=== PATIENT | female | born 1955 | race American Indian/Alaskan Native ===

== ENCOUNTER 2017-07-04 08:33 | Emergency (ER) | payer OTHER ==
[2017-07-04] MEDS ORDERED: Sodium Chloride 0.9% 1,000 ML IV STA (08:49)
--- NOTE | 2017-07-04 08:55 | ED PDOC ---
Syncope/Near Syncope/Dizziness Time Seen by Provider: 07/04/17 08:37 Chief Complaint (Nursing): Syncope Chief Complaint (Provider): Syncope History Per: EMS History/Exam Limitations: no limitations Onset/Duration Of Symptoms: Hrs (prior to arrival ) Current Symptoms Are (Timing): Still Present Additional History Per: Patient Additional Complaint(s): Seema Davis is a 61 year old female with a past medical history of diabetes brought to the ED by EMS after being witnessed having a syncopal episode with an unknown duration prior to arrival. The patient reports she had not been feeling well this morning and woke up complaining of dizziness. She denies headache, chest pain, palpitations, or seizure activity. PMD: TBD Past Medical History Reviewed: Historical Data, Nursing Documentation, Vital Signs - Medical History PMH: Diabetes, Fractures (fibula 3-4 yrs ago), HTN, Hypercholesterolemia, Sleep Apnea - Surgical History Surgical History: Hernia Repair - Family History Family History: States: Unknown Family Hx - Home Medications Home Medications: Ambulatory Orders Medication Instructions Recorded Azithromycin [Zithromax] 250 mg PO DAILY #6 tab 09/02/16 Ibuprofen [Motrin Tab] 600 mg PO Q6 PRN #15 tab 09/02/16 Oseltamivir [Tamiflu] 75 mg PO BID #10 cap 09/02/16 - Allergies Allergies/Adverse Reactions: Allergies Allergy/AdvReac Type Severity Reaction Status Date / Time No Known Allergies Allergy Verified 06/26/15 11:09 Review of Systems ROS Statement: Except As Marked, All Systems Reviewed And Found Negative Cardiovascular: Negative for: Chest Pain, Palpitations Neurological: Positive for: Dizziness, Other (syncope). Negative for: Headache Physical Exam - Reviewed Nursing Documentation Reviewed: Yes Vital Signs Reviewed: Yes - Physical Exam Appears: Positive for: Non-toxic, No Acute Distress Head Exam: Positive for: ATRAUMATIC, NORMOCEPHALIC Skin: Positive for: Normal Color, Warm, Dry Eye Exam: Positive for: Normal appearance, EOMI, PERRL ENT: Positive for: Pharynx Is (mucous membranes dry) Neck: Positive for: Normal, Painless ROM Cardiovascular/Chest: Positive for: Regular Rate, Rhythm, Chest Non Tender Respiratory: Positive for: Normal Breath Sounds. Negative for: Respiratory Distress Gastrointestinal/Abdominal: Positive for: Normal Exam, Soft. Negative for: Tenderness Extremity: Positive for: Normal ROM. Negative for: Deformity Neurologic/Psych: Positive for: Alert, Oriented (x3). Negative for: Motor/ Sensory Deficits - Laboratory Results Result Diagrams: 07/04/17 08:52 07/04/17 08:52 - ECG O2 Sat by Pulse Oximetry: 99 (RA) Pulse Ox Interpretation: Normal Medical Decision Making Medical Decision Making: Time: 08:37 Impression: s/p syncopal episode Plan: * ED EKG * CMP * CBC (with differential) * NS 1,000 ml IV 200 mls/hr * CT Head w/o Contrast * Reevaluation Scribe Attestation: Documented by Naty Kwok, acting as a scribe for Will Downey MD. Advised 24 hr obs for syncope. Pt wishes to go home aware of risks including recurrent syncope, arrhythmia and . Provider Scribe Attestation: All medical record entries made by the Scribe were at my direction and personally dictated by me. I have reviewed the chart and agree that the record accurately reflects my personal performance of the history, physical exam, medical decision making, and the department course for this patient. I have also personally directed, reviewed, and agree with the discharge instructions and disposition. Disposition - Clinical Impression Clinical Impression: Syncope, Dehydration - Patient ED Disposition Is Patient to be Admitted: No Counseled Patient/Family Regarding: Studies Performed, Diagnosis, Need For Followup - Disposition Referrals: [facility] [Outside] Disposition: Routine/Home Disposition Time: 10:40 Condition: FAIR Instructions: Syncope (ED), Dehydration (ED) Forms: [employer] (Thai)
[2017-07-04 08:56] VITALS: BP 112/66; PULSE 81; RESP 16; O2SAT 99
[2017-07-04 09:14] LABS: BASO % 0.3 % (0.0-2.0); EOS # 0.1 K/uL (0.0-0.7); EOS % 0.5 % (0.0-4.0); HEMATOCRIT 27.4 % (34.0-47.0); LYMPH # 1.9 K/uL (1.0-4.3); MEAN CELL VOLUME 82.2 fl (81.0-99.0); MEAN CORPUSCULAR HEMOGLOBIN 26.7 pg (27.0-31.0); MEAN CORPUSCULAR HGB CONC 32.5 g/dL (33.0-37.0); MEAN PLATELET VOLUME 7.4 fl (7.2-11.7); MONO # 0.9 K/uL (0.0-0.8); MONO % 8.5 % (0.0-10.0); NEUT # 8.1 K/uL (1.8-7.0); NEUT % 73.7 % (50.0-75.0); RED CELL DISTRIBUTION WIDTH 15.3 % (11.5-14.5)
[2017-07-04 09:30] LABS: BILIRUBIN,TOTAL 0.9 mg/dl (0.2-1.3); CALCIUM 9.1 mg/dL (8.4-10.2); TOTAL PROTEIN 8.5 G/DL (6.3-8.2)
[2017-07-04 09:35] LABS: ALB/GLOB RATIO 0.9 (1.0-2.1)
--- NOTE | 2017-07-04 10:18 | CT ---
PROCEDURE: CT HEAD WITHOUT CONTRAST. HISTORY: r/o bleed COMPARISON: Comparison made with prior CT scan brain 06/18/2016. TECHNIQUE: Axial computed tomography images were obtained through the head/brain without intravenous contrast. Radiation dose: Total exam DLP = 767.83 mGy-cm. This CT exam was performed using one or more of the following dose reduction techniques: Automated exposure control, adjustment of the mA and/or kV according to patient size, and/or use of iterative reconstruction technique. FINDINGS: HEMORRHAGE: No acute parenchymal, subarachnoid or extra-axial hemorrhage. BRAIN: There appears chronic periventricular to be some very minor white ischemic changes. No obvious parenchymal nor extra-axial mass or collection identified on this noncontrast study. Mild generalized volume loss. . Mild vascular calcifications are present. VENTRICLES: Unremarkable. No hydrocephalus. CALVARIUM: Unremarkable. PARANASAL SINUSES: Minimal mucosal thickening seen within the ethmoid air complex. Swan MASTOID AIR CELLS: Unremarkable as visualized. No inflammatory changes. OTHER FINDINGS: None. IMPRESSION: No acute intracranial hemorrhage. Minor chronic periventricular white matter ischemic changes. Mild generalized volume loss.
--- NOTE | 2017-07-05 09:15 | CARD ---
APPROVED REPORT EKG Measurement Heart [id number] <Conclusion> Normal sinus rhythm Normal ECG
== END 2017-07-04 11:07 | disposition home or self-care (01) ==
LOC: H.ER 08:33
DX: R55 Syncope and collapse (principal); E86.0 Dehydration; E11.9 Type 2 diabetes mellitus without complications; E78.00 Pure hypercholesterolemia, unspecified; I10 Essential (primary) hypertension
CPT/HCPCS: 70450; 80053; 82948; 85025; 93005; 99284; J7040

== ENCOUNTER 2017-08-18 07:52 | Inpatient (IN) | payer OTHER ==
--- NOTE | 2017-08-18 09:11 | ED PDOC ---
Syncope/Near Syncope/Dizziness Time Seen by Provider: 08/18/17 08:33 Chief Complaint (Nursing): Weakness/Neurological Deficit Chief Complaint (Provider): Dizziness History Per: Patient History/Exam Limitations: no limitations Onset/Duration Of Symptoms: Sudden Onset (at 7AM) Current Symptoms Are (Timing): Better Additional Complaint(s): Seema Davis is a 61-year-old female with a past medical history of diabetes , brought to the Emergency Department by ambulance for evaluation of episode of dizziness this morning. Patient reports she took her usual insulin dose this morning and was taking a bite of a sandwich when she began to feel dizzy and sweaty around 7AM. EMS gave patient glucose, and she now reports feeling normal. Denies any headache, syncope, paresthesias, weakness, chest pain, or shortness of breath. Family member reports patient is not compliant with regular blood sugar checks. PMD: Provider TBD Past Medical History Reviewed: Historical Data, Nursing Documentation, Vital Signs Vital Signs: Last Vital Signs Temp 99 F 08/18/17 07:59 Pulse 83 08/18/17 07:59 Resp 18 08/18/17 07:59 BP 117/67 08/18/17 07:59 Pulse Ox 98 08/18/17 07:59 - Medical History PMH: Diabetes, Fractures (fibula 3-4 yrs ago), HTN, Hypercholesterolemia, Sleep Apnea - Surgical History Surgical History: Hernia Repair - Family History Family History: States: Unknown Family Hx - Social History Current smoker - smoking cessation education provided: No Alcohol: None Drugs: Denies - Immunization History Hx Tetanus Toxoid Vaccination: No Hx Influenza Vaccination: No Hx Pneumococcal Vaccination: No - Home Medications Home Medications: Ambulatory Orders Medication Instructions Recorded Aspirin [Ecotrin] 81 mg PO QPM 08/18/17 Atorvastatin [Lipitor] 20 mg PO QPM 08/18/17 Ferrous Sulfate [Ferosul] 325 mg PO QPM 08/18/17 Insulin Glargine, Recombina 45 unit SC HS 08/18/17 [Lantus] Insulin Lispro [humALOG] 12 unit SC ACTID 08/18/17 Lisinopril/Hydrochlorothiazide 1 tab PO QPM 08/18/17 [Lisinopril-Hctz 20-25 mg Tab] Montelukast [Singulair] 10 mg PO QPM 08/18/17 Oxybutynin [Ditropan Tab] 5 mg PO QPM 08/18/17 amLODIPine [Norvasc] 5 mg PO QPM 08/18/17 - Allergies Allergies/Adverse Reactions: Allergies Allergy/AdvReac Type Severity Reaction Status Date / Time No Known Allergies Allergy Verified 06/26/15 11:09 Review of Systems ROS Statement: Except As Marked, All Systems Reviewed And Found Negative Constitutional: Positive for: Sweats Cardiovascular: Negative for: Chest Pain Respiratory: Negative for: Shortness of Breath Neurological: Positive for: Dizziness. Negative for: Weakness, Numbness (or paresthesias), Headache, Other (Syncope) Physical Exam - Reviewed Nursing Documentation Reviewed: Yes Vital Signs Reviewed: Yes - Physical Exam Appears: Positive for: Non-toxic, No Acute Distress Head Exam: Positive for: ATRAUMATIC, NORMAL INSPECTION, NORMOCEPHALIC Skin: Positive for: Normal Color (with superficial ulcerations noted under left breast (pt states cannot keep area dry). No vesicles, discharge, or induration noted) Eye Exam: Positive for: EOMI, Normal appearance, PERRL Neck: Positive for: Normal, Painless ROM, Supple Cardiovascular/Chest: Positive for: Regular Rate, Rhythm. Negative for: Murmur Respiratory: Positive for: Normal Breath Sounds. Negative for: Accessory Muscle Use, Respiratory Distress Gastrointestinal/Abdominal: Positive for: Normal Exam, Soft. Negative for: Tenderness Back: Positive for: Normal Inspection. Negative for: Vertebral Tenderness Rectal: Positive for: Normal Exam, Other (No gross blood) Extremity: Positive for: Normal ROM, Capillary Refill (< 2 sec). Negative for: Deformity Neurologic/Psych: Positive for: Alert, Oriented (x 3). Negative for: Motor/ Sensory Deficits - Laboratory Results Result Diagrams: 08/21/17 04:55 08/21/17 04:55 - ECG Interpretation Of ECG: NSR @ 83, no ST-T changes. O2 Sat by Pulse Oximetry: 98 (RA) Pulse Ox Interpretation: Normal Medical Decision Making Medical Decision Making: Initial Impression: Hypoglycemia Time: 9:03 Initial Plan: --EKG --CMP --CBC w/ differential --Urine dip --Urinalysis --Accucheck --Chest x-ray --CT Head w/o contrast --Reevaluation Finger stick: 65 Time: 10:[address] Cunningham, who recommends transfusion. Patient will be hospitalized for observation due to hypoglycemic and symptomatic anemia. Added on blood type/screen, crossmatch, and occult blood stool. Time: 11:05 CHEST X-RAY: FINDINGS: LUNGS: No acute infiltrate identified bilaterally. Linear atelectasis or fibrosis in the inferior left lung zone. PLEURA: No significant pleural effusion identified, no pneumothorax apparent. CARDIOVASCULAR: Normal. OSSEOUS STRUCTURES: No significant abnormalities. VISUALIZED UPPER ABDOMEN: Normal. OTHER FINDINGS: None. IMPRESSION: No acute infiltrate or pleural effusion bilaterally. Linear atelectasis or fibrosis is seen at the left base laterally. Time: 11:20 CT HEAD WITHOUT CONTRAST: FINDINGS: HEMORRHAGE: No intracranial hemorrhage. BRAIN: Good corticomedullary differentiation is seen. Once again, diffuse expansion of the ventriculosulcal and cisternal spaces is appreciated with white matter lucency compatible with diffuse cerebral atrophy and chronic microangiopathy. No suspicious extra-axial fluid collection is identified and the midline brain anatomy appears grossly nonfocal as imaged. There is no mass effect throughout. VENTRICLES: Unremarkable. No hydrocephalus. CALVARIUM: Unremarkable. PARANASAL SINUSES: Unremarkable as visualized. No significant inflammatory changes. MASTOID AIR CELLS: Unremarkable as visualized. No inflammatory changes. OTHER FINDINGS: None. IMPRESSION: No definite acute, interval findings by standard CT criteria. Reiterated age related neuro degenerative changes are appreciated as discussed above compared to head CT 07/04/2017. Follow-up CT or MRI are available if indicated. Scribe Attestation: Documented by Yuliya Rowland, acting as a scribe for Kamini Cabrera MD Provider Scribe Attestation: All medical record entries made by the Scribe were at my direction and personally dictated by me. I have reviewed the chart and agree that the record accurately reflects my personal performance of the history, physical exam, medical decision making, and the department course for this patient. I have also personally directed, reviewed, and agree with the discharge instructions and disposition. Disposition - Clinical Impression Clinical Impression: Symptomatic anemia, Hypoglycemia - Patient ED Disposition Is Patient to be Admitted: Yes Counseled Patient/Family Regarding: Studies Performed - Disposition Disposition Time: 10:47 Condition: STABLE - Pt Status Changed To: Hospital Disposition Of: Observation - POA Present On Arrival: Poor Glycemic Control
[2017-08-18 09:41] LABS: BASO # 0.1 K/uL (0.0-0.2); BASO % 0.4 % (0.0-2.0); EOS # 0.2 K/uL (0.0-0.7); HEMOGLOBIN 7.5 g/dL (12.0-16.0); LYMPH # 1.7 K/uL (1.0-4.3); LYMPH % 11.1 % (20.0-40.0); MEAN CELL VOLUME 79.6 fl (81.0-99.0); MEAN CORPUSCULAR HEMOGLOBIN 25.4 pg (27.0-31.0); MEAN PLATELET VOLUME 6.7 fl (7.2-11.7); MONO % 6.3 % (0.0-10.0); NEUT # 12.8 K/uL (1.8-7.0); NEUT % 81.2 % (50.0-75.0); RBC 2.96 Mil/uL (3.80-5.20); RED CELL DISTRIBUTION WIDTH 15.3 % (11.5-14.5); WHITE BLOOD COUNT 15.7 K/uL (4.8-10.8)
[2017-08-18 10:03] LABS: ALB/GLOB RATIO 0.8 (1.0-2.1); ALBUMIN 3.5 g/dL (3.5-5.0); CALCIUM 9.3 mg/dL (8.4-10.2)
--- NOTE | 2017-08-18 11:07 | RAD ---
HISTORY: Dizziness COMPARISON: Portable chest 09/02/2016. FINDINGS: LUNGS: No acute infiltrate identified bilaterally. Linear atelectasis or fibrosis in the inferior left lung zone. PLEURA: No significant pleural effusion identified, no pneumothorax apparent. CARDIOVASCULAR: Normal. OSSEOUS STRUCTURES: No significant abnormalities. VISUALIZED UPPER ABDOMEN: Normal. OTHER FINDINGS: None. IMPRESSION: No acute infiltrate or pleural effusion bilaterally. Linear atelectasis or fibrosis is seen at the left base laterally.
--- NOTE | 2017-08-18 11:21 | CT ---
PROCEDURE: CT HEAD WITHOUT CONTRAST. HISTORY: Lightheadedness COMPARISON: Unenhanced head CT 07/04/2017 TECHNIQUE: Axial computed tomography images were obtained through the head/brain without intravenous contrast. Radiation dose: Total exam DLP = 846.51 mGy-cm. This CT exam was performed using one or more of the following dose reduction techniques: Automated exposure control, adjustment of the mA and/or kV according to patient size, and/or use of iterative reconstruction technique. FINDINGS: HEMORRHAGE: No intracranial hemorrhage. BRAIN: Good corticomedullary differentiation is seen. Once again, diffuse expansion of the ventriculosulcal and cisternal spaces is appreciated with white matter lucency compatible with diffuse cerebral atrophy and chronic microangiopathy. No suspicious extra-axial fluid collection is identified and the midline brain anatomy appears grossly nonfocal as imaged. There is no mass effect throughout. VENTRICLES: Unremarkable. No hydrocephalus. CALVARIUM: Unremarkable. PARANASAL SINUSES: Unremarkable as visualized. No significant inflammatory changes. MASTOID AIR CELLS: Unremarkable as visualized. No inflammatory changes. OTHER FINDINGS: None. IMPRESSION: No definite acute, interval findings by standard CT criteria. Reiterated age related neuro degenerative changes are appreciated as discussed above compared to head CT 07/04/2017. Follow-up CT or MRI are available if indicated.
[2017-08-18] MEDS ORDERED: Pneumococcal 23-Valent Vaccine IM ONE (14:11)
[2017-08-18] MEDS ORDERED: Influenza Vaccine 18yr & older 0.5 ML/45 MCG SYR IM ONE (14:29)
[2017-08-18 15:22] LABS: IRON 19 ug/dL (37-170)
[2017-08-18 15:31] LABS: TOTAL IRON BINDING CAPACITY 224 ug/dL (250-450)
[2017-08-18 15:32] LABS: % IRON SATURATION 9 % (20-55)
[2017-08-18] MEDS: ceFAZolin 1 GM in Sodium Chloride 0.9% 100 ML IVPB SCH (17:08)
[2017-08-18] MEDS: Insulin Regular 100 units/ml SC SCH ×2 (17:08→22:04)
[2017-08-18] MEDS ORDERED: Patient's Own Med (Lisinopril/Hydrochlorothiazide [Lisinopril-Hctz 20-25 Mg Tab] 1 TAB) PO SCH (18:00)
--- NOTE | 2017-08-18 18:23 | CARD ---
APPROVED REPORT EKG Measurement Heart [id number] <Conclusion> Normal sinus rhythm Normal ECG
[2017-08-18 23:28] LABS: SQUAMOUS EPITHIAL 1 /hpf (0-5); URINE BACTERIA OCC (<OCC); URINE BILIRUBIN NEGATIVE (NEGATIVE); URINE BLOOD SMALL (NEGATIVE); URINE CLARITY CLEAR (Clear); URINE COLOR YELLOW (YELLOW); URINE GLUCOSE (UA) NEG (Normal); URINE LEUKOCYTE ESTERASE SMALL Leu/uL (Negative); URINE NITRATE POSITIVE (NEGATIVE); URINE PROTEIN NEGATIVE (NEGATIVE); URINE UROBILINOGEN 0.2-1.0 mg/dL (0.2-1.0)
[2017-08-19] MEDS: ceFAZolin 1 GM in Sodium Chloride 0.9% 100 ML IVPB SCH ×3 (01:40→16:07)
[2017-08-19 05:54] LABS: HEMOGLOBIN 9.1 g/dL (12.0-16.0); MEAN CELL VOLUME 82.7 fl (81.0-99.0); MEAN CORPUSCULAR HEMOGLOBIN 26.5 pg (27.0-31.0); RBC 3.45 Mil/uL (3.80-5.20); RED CELL DISTRIBUTION WIDTH 15.7 % (11.5-14.5); WHITE BLOOD COUNT 16.8 K/uL (4.8-10.8)
[2017-08-19 06:04] LABS: HDL CHOLESTEROL 36 MG/DL (30-70)
[2017-08-19 06:15] LABS: LDL CHOLESTEROL 53 mg/dL (0-129)
[2017-08-19] MEDS: Insulin Regular 100 units/ml SC SCH ×4 (06:50→21:55)
--- NOTE | 2017-08-19 08:03 | CP.PCM.HP ---
History of Present Illness - History of Present Illness History of Present Illness: 61 yr old F brought in to ED by ambulance for acute severe dizziness. PMHx includes IDDM type 2, HTN, hyperchlesterolemia, morbidly obese, sleep apnea, abd hernia repair with mesh with postop mesh infection and removal, chronic recurrent cellulitis of bilateral breast. Patient reports she became dizzy after administering her insulin, she had just taken a bite out of a sandwhich. Denies chest pain, SOB, weakness, headache, dizziness, syncope, nausea or vomiting. Dizziness resolved upon arrival to ED and treatment with glucose administered by EMS. Patient reports she was dx with diabetes 5 yrs ago and does not check her blood sugar regularly before taking insulin. PMD: Dr. Najera, [facility] Specialists: none PMHx: IDDM type 2, HTN, hyperchlesterolemia, morbidly obese, sleep apnea, abd hernia repair with mesh with postop mesh infection and removal, chronic recurrent cellulitis of bilateral breast SurgHx: multiple abdominal surgeries: abd hernia repair with mesh with postop mesh infection and removal FMHx: mother at 69-seizure disorder, father at 70-stroke /seizure SocHx: denies tobacco/Etoh or drugs Medications: see medication reconciliation Allergies: NKDA Present on Admission - Present on Admission Any Indicators Present on Admission: Yes History of DVT/PE: No History of Uncontrolled Diabetes: Yes Urinary Catheter: No Decubitus Ulcer Present: No History Surgical Site Infection Following: None (Yes-patient has history of surgical site and mesh infection following abd hernia repair) Review of Systems - Review of Systems All systems: reviewed and no additional remarkable complaints except (for what is mentioned in the HPI) - Constitutional Constitutional: absent: Chills, Fever - EENT Eyes: absent: Blurred Vision, Change in Vision Ears: absent: Ear Discharge Nose/Mouth/Throat: absent: Nasal Congestion, Nasal Discharge - Breasts Breasts: Skin Changes (multiple chronic recurrent lesions with malodor and discharge) - Cardiovascular Cardiovascular: absent: Chest Pain, Dyspnea - Respiratory Respiratory: absent: Hemoptysis - Gastrointestinal Gastrointestinal: absent: Abdominal Pain, Nausea, Vomiting - Genitourinary Genitourinary: absent: Difficulty Urinating, Dysuria - Musculoskeletal Musculoskeletal: absent: Arthralgias - Integumentary Integumentary: absent: Bleeding Lesions - Neurological Neurological: absent: Loss of Vision, Syncope - Psychiatric Psychiatric: absent: Anxiety, Depression - Endocrine Endocrine: absent: Polydipsia, Polyuria - Hematologic/Lymphatic Hematologic: absent: Easy Bleeding, Easy Bruising Past Patient History - Infectious Disease Hx of Infectious Diseases: None - Past Medical History & Family History Past Medical History?: Yes - Past Social History Smoking Status: Never Smoked - CARDIAC Hx Cardiac Disorders: Yes Hx Hypercholesterolemia: Yes Hx Hypertension: Yes - PULMONARY Hx Respiratory Disorders: Yes Hx Sleep Apnea: Yes (uses CPAP at night) - NEUROLOGICAL Hx Neurological Disorder: No - HEENT Hx HEENT Problems: No - RENAL Hx Chronic Kidney Disease: No - ENDOCRINE/METABOLIC Hx Endocrine Disorders: Yes Hx Diabetes Mellitus Type 2: Yes - HEMATOLOGICAL/ONCOLOGICAL Hx Blood Disorders: Yes Hx Blood Transfusions: No - INTEGUMENTARY Hx Dermatological Problems: Yes Hx Cellulitis: Yes Other/Comment: Under breasts rash/drainage - MUSCULOSKELETAL/RHEUMATOLOGICAL Hx Musculoskeletal Disorders: Yes Hx Falls: No Hx Fractures: Yes (fibula 3-4 yrs ago) - GASTROINTESTINAL Hx Gastrointestinal Disorders: Yes Other/Comment: abdominal surgery - GENITOURINARY/GYNECOLOGICAL Hx Genitourinary Disorders: No - PSYCHIATRIC Hx Psychophysiologic Disorder: No Hx Substance Use: No - SURGICAL HISTORY Hx Surgeries: Yes Hx Hysterectomy: Yes - ANESTHESIA Hx Anesthesia: Yes Hx Anesthesia Reactions: No Hx Malignant Hyperthermia: No Meds Allergies/Adverse Reactions: Allergies Allergy/AdvReac Type Severity Reaction Status Date / Time No Known Allergies Allergy Verified 06/26/15 11:09 Physical Exam - Constitutional Appears: Other (morbidly obese) - Head Exam Head Exam: ATRAUMATIC, NORMOCEPHALIC - Eye Exam Eye Exam: EOMI, PERRL - ENT Exam ENT Exam: Mucous Membranes Moist - Neck Exam Neck exam: Positive for: Full Rom. Negative for: Lymphadenopathy - Respiratory Exam Respiratory Exam: Clear to Auscultation Bilateral, NORMAL BREATHING PATTERN - Cardiovascular Exam Cardiovascular Exam: REGULAR RHYTHM, +S1, +S2 - GI/Abdominal Exam GI & Abdominal Exam: Normal Bowel Sounds, Soft (obese). absent: Tenderness Additional comments: multiple 1x1 cm stage 1 ulcers with clear malodorous discharge and surrounding erythema under lower abdominal skin fold - Extremities Exam Extremities exam: Positive for: full ROM. Negative for: calf tenderness, pedal edema - Neurological Exam Neurological exam: Alert, CN II-XII Intact, Oriented x3 - Psychiatric Exam Psychiatric exam: Normal Affect, Normal Mood - Skin Skin Exam: Warm Additional comments: under bilateral breast: multiple 1x1 cm stage 1 ulcers with surrounding erythema , clear discharge and malodor Results - Vital Signs Recent Vital Signs: Last Vital Signs Temp 98.5 F 08/19/17 07:50 Pulse 78 08/19/17 07:50 Resp 16 08/19/17 07:50 BP 93/60 L 08/19/17 07:50 Pulse Ox 96 08/19/17 07:50 - Labs Result Diagrams: 08/19/17 05:15 08/18/17 09:38 Labs: Laboratory Results - last 24 hr 08/18/17 08/18/17 08/18/17 09:38 09:38 11:27 WBC 15.7 H RBC 2.96 L Hgb 7.5 L Hct 23.6 L MCV 79.6 L D MCH 25.4 L MCHC 32.0 L RDW 15.3 H Plt Count 392 MPV 6.7 L Neut % (Auto) 81.2 H Lymph % (Auto) 11.1 L Payne % (Auto) 6.3 Eos % (Auto) 1.0 Baso % (Auto) 0.4 Neut # 12.8 H Lymph # 1.7 Payne # 1.0 H Eos # 0.2 Baso # 0.1 Retic Count Sodium 140 Potassium 4.0 Chloride 102 Carbon Dioxide 25 Anion Gap 17 BUN 14 Creatinine 1.2 Est GFR ( Amer) 55 Est GFR (Non-Af Amer) 46 POC Glucose (mg/dL) Random Glucose 119 H Calcium 9.3 Iron TIBC % Saturation Ferritin Total Bilirubin 0.5 AST 31 ALT 18 Alkaline Phosphatase 102 Total Protein 8.1 Albumin 3.5 Globulin 4.6 H Albumin/Globulin Ratio 0.8 L Triglycerides Cholesterol LDL Cholesterol Direct HDL Cholesterol Vitamin B12 Urine Color Urine Clarity Urine pH Ur Specific Sc[place]mon Urine Protein Urine Glucose (UA) Urine Ketones Urine Blood Urine Nitrate Urine Bilirubin Urine Urobilinogen Ur Leukocyte Esterase Urine RBC (Auto) Urine Microscopic WBC Ur Squamous Epith Cells Urine Bacteria Stool Occult Blood Blood Type O POSITIVE Blood Type Confirm Antibody Screen Negative Crossmatch See Detail BBK History Checked No verified bt 08/18/17 08/18/17 08/18/17 12:12 12:43 15:07 WBC RBC Hgb Hct MCV MCH MCHC RDW Plt Count MPV Neut % (Auto) Lymph % (Auto) Payne % (Auto) Eos % (Auto) Baso % (Auto) Neut # Lymph # Payne # Eos # Baso # Retic Count Sodium Potassium Chloride Carbon Dioxide Anion Gap BUN Creatinine Est GFR ( Amer) Est GFR (Non-Af Amer) POC Glucose (mg/dL) 91 Random Glucose Calcium Iron 19 L TIBC 224 L % Saturation 9 L Ferritin Total Bilirubin AST ALT Alkaline Phosphatase Total Protein Albumin Globulin Albumin/Globulin Ratio Triglycerides Cholesterol LDL Cholesterol Direct HDL Cholesterol Vitamin B12 Urine Color Urine Clarity Urine pH Ur Specific [place] Urine Protein Urine Glucose (UA) Urine Ketones Urine Blood Urine Nitrate Urine Bilirubin Urine Urobilinogen Ur Leukocyte Esterase Urine RBC (Auto) Urine Microscopic WBC Ur Squamous Epith Cells Urine Bacteria Stool Occult Blood Negative Blood Type Blood Type Confirm Antibody Screen Crossmatch BBK History Checked 08/18/17 08/18/17 08/18/17 15:07 15:07 16:36 WBC RBC Hgb Hct MCV MCH MCHC RDW Plt Count MPV Neut % (Auto) Lymph % (Auto) Payne % (Auto) Eos % (Auto) Baso % (Auto) Neut # Lymph # Payne # Eos # Baso # Retic Count 2.1 H Sodium Potassium Chloride Carbon Dioxide Anion Gap BUN Creatinine Est GFR ( Amer) Est GFR (Non-Af Amer) POC Glucose (mg/dL) 105 Random Glucose Calcium Iron TIBC % Saturation Ferritin 363.0 H Total Bilirubin AST ALT Alkaline Phosphatase Total Protein Albumin Globulin Albumin/Globulin Ratio Triglycerides Cholesterol LDL Cholesterol Direct HDL Cholesterol Vitamin B12 379 Urine Color Urine Clarity Urine pH Ur Specific [place] Urine Protein Urine Glucose (UA) Urine Ketones Urine Blood Urine Nitrate Urine Bilirubin Urine Urobilinogen Ur Leukocyte Esterase Urine RBC (Auto) Urine Microscopic WBC Ur Squamous Epith Cells Urine Bacteria Stool Occult Blood Blood Type Blood Type Confirm Antibody Screen Crossmatch BBK History Checked 08/18/17 08/18/17 08/18/17 21:21 21:27 23:19 WBC RBC Hgb Hct MCV MCH MCHC RDW Plt Count MPV Neut % (Auto) Lymph % (Auto) Payne % (Auto) Eos % (Auto) Baso % (Auto) Neut # Lymph # Payne # Eos # Baso # Retic Count Sodium Potassium Chloride Carbon Dioxide Anion Gap BUN Creatinine Est GFR ( Amer) Est GFR (Non-Af Amer) POC Glucose (mg/dL) 121 H Random Glucose Calcium Iron TIBC % Saturation Ferritin Total Bilirubin AST ALT Alkaline Phosphatase Total Protein Albumin Globulin Albumin/Globulin Ratio Triglycerides Cholesterol LDL Cholesterol Direct HDL Cholesterol Vitamin B12 Urine Color Yellow Urine Clarity Clear Urine pH 6.0 Ur Specific [place] 1.006 Urine Protein Negative Urine Glucose (UA) Neg Urine Ketones Negative Urine Blood Small Urine Nitrate Positive H Urine Bilirubin Negative Urine Urobilinogen 0.2-1.0 Ur Leukocyte Esterase Small Urine RBC (Auto) < 1 Urine Microscopic WBC 7 H Ur Squamous Epith Cells 1 Urine Bacteria Occ H Stool Occult Blood Blood Type Blood Type Confirm O POSITIVE Antibody Screen Crossmatch BBK History Checked 08/19/17 08/19/17 08/19/17 05:15 05:15 05:52 WBC 16.8 H RBC 3.45 L Hgb 9.1 L Hct 28.6 L MCV 82.7 D MCH 26.5 L MCHC 32.0 L RDW 15.7 H Plt Count 366 MPV Neut % (Auto) Lymph % (Auto) Payne % (Auto) Eos % (Auto) Baso % (Auto) Neut # Lymph # Payne # Eos # Baso # Retic Count Sodium Potassium Chloride Carbon Dioxide Anion Gap BUN Creatinine Est GFR ( Amer) Est GFR (Non-Af Amer) POC Glucose (mg/dL) 110 Random Glucose Calcium Iron TIBC % Saturation Ferritin Total Bilirubin AST ALT Alkaline Phosphatase Total Protein Albumin Globulin Albumin/Globulin Ratio Triglycerides 63 Cholesterol 121 LDL Cholesterol Direct 53 HDL Cholesterol 36 Vitamin B12 Urine Color Urine Clarity Urine pH Ur Specific [place] Urine Protein Urine Glucose (UA) Urine Ketones Urine Blood Urine Nitrate Urine Bilirubin Urine Urobilinogen Ur Leukocyte Esterase Urine RBC (Auto) Urine Microscopic WBC Ur Squamous Epith Cells Urine Bacteria Stool Occult Blood Blood Type Blood Type Confirm Antibody Screen Crossmatch BBK History Checked Assessment & Plan - Assessment and Plan (Free Text) Assessment: 61 yr old F admitted for hypoglycemia and symptomatic anemia. -admit to tele -f/u next day CBC, patient is s/p transfusion of 2 units pRBC's -ID on consult: will follow recommendations -f/u FOBT, wound cultures -moderate carbohydrate diet, insulin coverage scale, hypoglycemia protocol in place - Date & Time Date: 08/19/17 Time: 09:45
--- NOTE | 2017-08-19 10:17 | CP.PCM.CON ---
History of Present Illness - History of Present Illness History of Present Illness: 61-year-old female with a past medical history of diabetes, brought to the Emergency Department by ambulance for evaluation of episode of dizziness this morning. Patient reports she took her usual insulin dose this morning and was taking a bite of a sandwich when she began to feel dizzy and sweaty around 7AM. EMS gave patient glucose, and she now reports feeling normal. Denies any headache, syncope, paresthesias, weakness, chest pain, or shortness of breath. Family member reports patient is not compliant with regular blood sugar checks. Darian vyas has severe cellulitis of breasts and abd folds with desquamation Fungal etiology may be primary but secondary staph/ strep infection suspected - Medical History PMH: Diabetes, Fractures (fibula 3-4 yrs ago), HTN, Hypercholesterolemia, Sleep Apnea - Surgical History Surgical History: Hernia Repair - Family History Family History: States: Unknown Family Hx - Social History Current smoker - smoking cessation education provided: No Alcohol: None Drugs: Denies Review of Systems - Review of Systems All systems: reviewed and no additional remarkable complaints except - Constitutional Constitutional: As Per HPI - EENT Eyes: absent: As Per HPI, Blind Spots, Blurred Vision, Change in Vision, Decreased Night Vision, Diplopia, Discharge, Dry Eye, Exophthalmos, Floaters, Irritation, Itchy Eyes, Loss of Peripheral Vision, Pain, Photophobia, Requires Corrective Lenses, Sees Flashes, Spots in Vision, Tunnel Vision, Other Visual Disturbances, Loss of Vision, Other Ears: absent: As Per HPI, Decreased Hearing, Ear Discharge, Ear Pain, Tinnitus, Abnormal Hearing, Disequilibrium, Dizziness, Other Nose/Mouth/Throat: absent: As Per HPI, Epistaxis, Nasal Congestion, Nasal Discharge, Nasal Obstruction, Nasal Trauma, Nose Pain, Post Nasal Drip, Sinus Pain, Sinus Pressure, Bleeding Gums, Change in Voice, Dental Pain, Dry Mouth, Dysphagia, Halitosis, Hoarsness, Lip Swelling, Mouth Lesions, Mouth Pain, Odynophagia, Sore Throat, Throat Swelling, Tongue Swelling, Facial Pain, Neck Pain, Neck Mass, Other - Breasts Breasts: absent: As Per HPI, Change in Shape, Mass, Pain, Nipple Discharge, Nipple Inversion, Skin Changes, Swelling, Other - Cardiovascular Cardiovascular: absent: As Per HPI, Acrocyanosis, Chest Pain, Chest Pain at Rest , Chest Pain with Activity, Claudication, Diaphoresis, Dyspnea, Dyspnea on Exertion, Edema, Irregular Heart Rhythm, Pain Radiating to Arm/Neck/Jaw, Leg Edema, Leg Ulcers, Lightheadedness, Orthopnea, Palpitations, Paroxysmal Nocturnal Dyspnea, Pedal Edema, Radiating Pain, Rapid Heart Rate, Slow Heart Rate, Syncope, Other - Respiratory Respiratory: absent: As Per HPI, Cough, Dyspnea, Hemoptysis, Dyspnea on Exertion , Wheezing, Snoring, Stridor, Pain on Inspiration, Chest Congestion, Excessive Mucous Production, Change in Mucous Color, Pain with Coughing, Other - Gastrointestinal Gastrointestinal: absent: As Per HPI, Abdominal Pain, Belching, Bloating, Change in Bowel Habits, Change in Stool Character, Coffee Ground Emesis, Constipation, Cramping, Diarrhea, Dyspepsia, Dysphagia, Early Satiety, Excessive Flatus, Fecal Incontinence, Heartburn, Hematemesis, Hematochezia, Loose Stools, Melena, Nausea, Odynophagia, Temesmus, Vomiting, Other - Genitourinary Genitourinary: absent: As Per HPI, Change in Urinary Stream, Difficulty Urinating, Dysuria, Flank Pain, Hematuria, Pyuria, Nocturia, Urinary Incontinence, Urinary Frequency, Urinary Hesitance, Urinary Urgency, Voiding Freq/Small Amts, Freq UTI, Hx Renal/Bladder Calculi, Hx /Renal Surgery, Bladder Distension, Other - Reproductive: Female Reproductive:Female: absent: As Per HPI, Amenorrhea, Amenorrhea/ Control, Currently Menstual, Cycle <21 Days, Cycle >35 Days, Cycle Variable, Menses 1-7 Days, Menses >/= 8 Days, Menses Variable, Cycle > 4 Weeks Between, No Menses for 6 Months, Heavy Menses, Light Menses, Normal Menses, Spotting Between Cycles , S/P Hysterectomy, Menopausal, Post Menopausal, Premenarche, Abnormal Vaginal Bleeding, Dysmenorrhea, Dyspareunia, Genital Lesions, Genital Pruritis, Pelvic Pain, Prolapse Symptoms, Sexual Dysfunction, Vaginal Discharge, Vaginal Dryness , Vaginal Odor, Vaginal Pruritis, Other - Menstruation Menstruation: absent: As Per HPI, Amenorrhea, Amenorrhea/ Control, Currently Menstual, Cycle <21 Days, Cycle >35 Days, Cycle Variable, Menses 1-7 Days, Menses >/= 8 Days, Menses Variable, Cycle > 4 Weeks Between, No Menses for 6 Months, Heavy Menses, Light Menses, Normal Menses, Spotting Between Cycles , S/P Hysterectomy, Menopausal, Post Menopausal, Premenarche, Abnormal Vaginal Bleeding, Dysmenorrhea, Other - Musculoskeletal Musculoskeletal: As Per HPI - Integumentary Integumentary: As Per HPI - Neurological Neurological: absent: As Per HPI, Abnormal Gait, Abnormal Hearing, Abnormal Movements, Abnormal Speech, Behavioral Changes, Burning Sensations, Confusion, Convulsions, Disequilibrium, Dizziness, Numbness, Focal Weakness, Frequent Falls , Headaches, Lack of Coordination, Loss of Vision, Memory Loss, Paresthesias, Radicular Pain, Restless Legs, Sensory Deficit, Syncope, Tingling, Tremor, Vertigo, Weakness, Other Visual Disturbances, Other - Psychiatric Psychiatric: absent: As Per HPI, Abnormal Sleep Pattern, Anhedonia, Anxiety, Auditory Hallucinations, Behavioral Changes, Change in Appetite, Change in Libido, Confusion, Depression, Difficulty Concentrating, Hallucinations, Homicidal Ideation, Hopelessness, Irritability, Memory Loss, Mood Swings, Panic Attacks, Paranoia, Suicidal Ideation, Visual Hallucinations, Tactile Hallucinations, Other - Endocrine Endocrine: absent: As Per HPI, Change in Body Appearance, Change in Libido, Cold Intolorance, Deepening of Voice, Excessive Sweating, Fatigue, Flushing, Heat Intolorance, Increase in Ring/Shoe/Hat Size, Palpitations, Polydipsia, Polyphagia, Polyuria, Other Past Patient History - Infectious Disease Hx of Infectious Diseases: None - Past Medical History & Family History Past Medical History?: Yes - Past Social History Smoking Status: Never Smoked - CARDIAC Hx Cardiac Disorders: Yes Hx Hypercholesterolemia: Yes Hx Hypertension: Yes - PULMONARY Hx Respiratory Disorders: Yes Hx Sleep Apnea: Yes (uses CPAP at night) - NEUROLOGICAL Hx Neurological Disorder: No - HEENT Hx HEENT Problems: No - RENAL Hx Chronic Kidney Disease: No - ENDOCRINE/METABOLIC Hx Endocrine Disorders: Yes Hx Diabetes Mellitus Type 2: Yes - HEMATOLOGICAL/ONCOLOGICAL Hx Blood Disorders: Yes Hx Blood Transfusions: No - INTEGUMENTARY Hx Dermatological Problems: Yes Hx Cellulitis: Yes Other/Comment: Under breasts rash/drainage - MUSCULOSKELETAL/RHEUMATOLOGICAL Hx Musculoskeletal Disorders: Yes Hx Falls: No Hx Fractures: Yes (fibula 3-4 yrs ago) - GASTROINTESTINAL Hx Gastrointestinal Disorders: Yes Other/Comment: abdominal surgery - GENITOURINARY/GYNECOLOGICAL Hx Genitourinary Disorders: No - PSYCHIATRIC Hx Psychophysiologic Disorder: No Hx Substance Use: No - SURGICAL HISTORY Hx Surgeries: Yes Hx Hysterectomy: Yes - ANESTHESIA Hx Anesthesia: Yes Hx Anesthesia Reactions: No Hx Malignant Hyperthermia: No Meds Allergies/Adverse Reactions: Allergies Allergy/AdvReac Type Severity Reaction Status Date / Time No Known Allergies Allergy Verified 06/26/15 11:09 - Medications Medications: Current Medications Amlodipine Besylate (Norvasc) 5 mg PO QPM [facility] Last Admin: 08/18/17 17:19 Dose: 5 mg Atorvastatin Calcium (Lipitor) 20 mg PO QPM [facility] Last Admin: 08/18/17 17:08 Dose: 20 mg Hydrochlorothiazide (Hydrodiuril) 25 mg PO QPM [facility] Last Admin: 08/18/17 17:10 Dose: 25 mg Cefazolin Sodium 1 gm/ Sodium (Chloride) 100 mls @ 100 mls/hr IVPB Q8 [facility] PRN Reason: Protocol Last Admin: 08/19/17 09:53 Dose: 100 mls/hr Iron Sucrose 100 mg/ Sodium (Chloride) 105 mls @ 105 mls/hr IVPB DAILY [facility] Last Admin: 08/19/17 10:02 Dose: 105 mls/hr Insulin Human Regular (Humulin R) 0 units SC ACHS [facility] PRN Reason: Protocol Last Admin: 08/19/17 06:50 Dose: Not Given Lisinopril (Zestril) 20 mg PO QPM [facility] Last Admin: 08/18/17 17:10 Dose: 20 mg Montelukast Sodium (Singulair) 10 mg PO QPM [facility] Last Admin: 08/18/17 17:07 Dose: 10 mg Oxybutynin Chloride (Ditropan Tab) 5 mg PO QPM [facility] Last Admin: 08/18/17 17:08 Dose: 5 mg Physical Exam - Constitutional Appears: Chronically Ill - Head Exam Head Exam: ATRAUMATIC - Eye Exam Eye Exam: absent: Scleral icterus - ENT Exam ENT Exam: Mucous Membranes Dry - Neck Exam Neck exam: Negative for: Lymphadenopathy - Respiratory Exam Respiratory Exam: Decreased Breath Sounds - Cardiovascular Exam Cardiovascular Exam: REGULAR RHYTHM, +S1, +S2 - GI/Abdominal Exam GI & Abdominal Exam: Diminished Bowel Sounds, Soft. absent: Tenderness - Rectal Exam Rectal Exam: Deferred - Exam Exam: NORMAL INSPECTION - Extremities Exam Extremities exam: Positive for: pedal edema, pedal pulses present. Negative for : tenderness - Back Exam Back exam: absent: CVA tenderness (L), CVA tenderness (R) - Neurological Exam Neurological exam: Alert, CN II-XII Intact, Oriented x3, Reflexes Normal - Psychiatric Exam Psychiatric exam: Depressed - Skin Additional comments: multiple skin ulcers and cellulitis in folds beneath breasts and abdominal pannus Results - Vital Signs Recent Vital Signs: Last Vital Signs Temp 98.5 F 08/19/17 07:50 Pulse 78 08/19/17 07:50 Resp 16 08/19/17 07:50 BP 93/60 L 08/19/17 07:50 Pulse Ox 96 08/19/17 07:50 - Labs Result Diagrams: 08/19/17 05:15 08/18/17 09:38 Labs: Laboratory Results - last 24 hr 08/18/17 08/18/17 08/18/17 11:27 12:12 12:43 WBC RBC Hgb Hct MCV MCH MCHC RDW Plt Count Retic Count POC Glucose (mg/dL) 91 Iron TIBC % Saturation Ferritin Triglycerides Cholesterol LDL Cholesterol Direct HDL Cholesterol Vitamin B12 Urine Color Urine Clarity Urine pH Ur Specific [place] Urine Protein Urine Glucose (UA) Urine Ketones Urine Blood Urine Nitrate Urine Bilirubin Urine Urobilinogen Ur Leukocyte Esterase Urine RBC (Auto) Urine Microscopic WBC Ur Squamous Epith Cells Urine Bacteria Stool Occult Blood Negative Blood Type O POSITIVE Blood Type Confirm Antibody Screen Negative Crossmatch See Detail BBK History Checked No verified bt 08/18/17 08/18/17 08/18/17 15:07 15:07 15:07 WBC RBC Hgb Hct MCV MCH MCHC RDW Plt Count Retic Count 2.1 H POC Glucose (mg/dL) Iron 19 L TIBC 224 L % Saturation 9 L Ferritin 363.0 H Triglycerides Cholesterol LDL Cholesterol Direct HDL Cholesterol Vitamin B12 379 Urine Color Urine Clarity Urine pH Ur Specific [place] Urine Protein Urine Glucose (UA) Urine Ketones Urine Blood Urine Nitrate Urine Bilirubin Urine Urobilinogen Ur Leukocyte Esterase Urine RBC (Auto) Urine Microscopic WBC Ur Squamous Epith Cells Urine Bacteria Stool Occult Blood Blood Type Blood Type Confirm Antibody Screen Crossmatch BBK History Checked 01/22/18 01/22/18 01/22/18 16:36 21:21 21:27 WBC RBC Hgb Hct MCV MCH MCHC RDW Plt Count Retic Count POC Glucose (mg/dL) 105 121 H Iron TIBC % Saturation Ferritin Triglycerides Cholesterol LDL Cholesterol Direct HDL Cholesterol Vitamin B12 Urine Color Urine Clarity Urine pH Ur Specific [place] Urine Protein Urine Glucose (UA) Urine Ketones Urine Blood Urine Nitrate Urine Bilirubin Urine Urobilinogen Ur Leukocyte Esterase Urine RBC (Auto) Urine Microscopic WBC Ur Squamous Epith Cells Urine Bacteria Stool Occult Blood Blood Type Blood Type Confirm O POSITIVE Antibody Screen Crossmatch BBK History Checked 08/18/17 08/19/17 08/19/17 23:19 05:15 05:15 WBC 16.8 H RBC 3.45 L Hgb 9.1 L Hct 28.6 L MCV 82.7 D MCH 26.5 L MCHC 32.0 L RDW 15.7 H Plt Count 366 Retic Count POC Glucose (mg/dL) Iron TIBC % Saturation Ferritin Triglycerides 63 Cholesterol 121 LDL Cholesterol Direct 53 HDL Cholesterol 36 Vitamin B12 Urine Color Yellow Urine Clarity Clear Urine pH 6.0 Ur Specific [place] 1.006 Urine Protein Negative Urine Glucose (UA) Neg Urine Ketones Negative Urine Blood Small Urine Nitrate Positive H Urine Bilirubin Negative Urine Urobilinogen 0.2-1.0 Ur Leukocyte Esterase Small Urine RBC (Auto) < 1 Urine Microscopic WBC 7 H Ur Squamous Epith Cells 1 Urine Bacteria Occ H Stool Occult Blood Blood Type Blood Type Confirm Antibody Screen Crossmatch BBK History Checked 08/19/17 05:52 WBC RBC Hgb Hct MCV MCH MCHC RDW Plt Count Retic Count POC Glucose (mg/dL) 110 Iron TIBC % Saturation Ferritin Triglycerides Cholesterol LDL Cholesterol Direct HDL Cholesterol Vitamin B12 Urine Color Urine Clarity Urine pH Ur Specific [place] Urine Protein Urine Glucose (UA) Urine Ketones Urine Blood Urine Nitrate Urine Bilirubin Urine Urobilinogen Ur Leukocyte Esterase Urine RBC (Auto) Urine Microscopic WBC Ur Squamous Epith Cells Urine Bacteria Stool Occult Blood Blood Type Blood Type Confirm Antibody Screen Crossmatch BBK History Checked Assessment & Plan - Assessment and Plan (Free Text) Assessment: Darian vyas has severe cellulitis of breasts and abd folds with desquamation Fungal etiology may be primary but secondary staph/ strep infection suspected
--- NOTE | 2017-08-19 16:14 | US ---
PROCEDURE: LIMITED CHEST WALL ULTRASOUND EXAM HISTORY: cellulitis underneath b/ l breast; r/o fluid colle COMPARISON: None available TECHNIQUE: Using high-frequency linear transducer, ultrasonography of the inframammary fold and chest wall local to it was performed in longitudinal and transverse imaging. Color Doppler blood flow was also utilized. FINDINGS: There multiple abnormalities identified with prominent heterogeneous but predominantly low signal soft tissue surrounding them in the bilateral chest wall deep to the inframammary folds. Prominent color blood flow surrounds these collections with the largest identified at the left measuring only 1.4 x 1 0.2 cm. No definitive fluid collection is seen at the right side although phlegmon appears to be scattered. These areas are also hyperemic. IMPRESSION: Findings most compatible with likely small abscess at the left chest wall with multifocal phlegmon also seen in generally the same distribution at the left inframammary fold and with similar foci without fluid seen at the right side compatible with phlegmon.
[2017-08-20] MEDS: ceFAZolin 1 GM in Sodium Chloride 0.9% 100 ML IVPB SCH ×2 (00:52→09:00)
[2017-08-20 06:10] LABS: HEMOGLOBIN 9.1 g/dL (12.0-16.0); MEAN CELL VOLUME 82.1 fl (81.0-99.0); MEAN CORPUSCULAR HEMOGLOBIN 26.7 pg (27.0-31.0); MEAN CORPUSCULAR HGB CONC 32.5 g/dL (33.0-37.0); RBC 3.42 Mil/uL (3.80-5.20); WHITE BLOOD COUNT 17.6 K/uL (4.8-10.8)
[2017-08-20 06:25] LABS: BLOOD UREA NITROGEN 13 mg/dl (7-17); CALCIUM 9.1 mg/dL (8.4-10.2); GFR AFRICAN-AMERICAN > 60; GFR NON-AFRICAN AMERICAN 51
[2017-08-20] MEDS: Insulin Regular 100 units/ml SC SCH ×4 (06:45→22:07)
--- NOTE | 2017-08-20 07:27 | PQF GENQUE ---
This form is a permanent part of the medical record 08/20/17 Dr. Cunningham, Please clarify the type of anemia: Admitted with dizziness and feeling sweaty after taking her insulin . Glucose given by EMS and felt better. Noted to have an H&H of 7.5/23.6, MCV 79.6, MCH 25.4. Iron / TIBC and % saturation all low.Retic high at 2.1.Stool for occult blood negative.Treatment includes IV Iron and transfusion of PRBC Clarification of your documentation is requested to better reflect the severity of illness and intensity of treatment of your patient. Indicators present [] Specify: [] [] Specify: [] [] Specify: [] [] Specify: [] Location in the medical record that reflects the above clinical findings: [] Treatment Provided: [] PHYSICIAN'S RESPONSE Please clarify the type of anemia: [] Blood loss anemia, acute [] Blood loss anemia, chronic [] Chronic anemia ( please specify disease process ) [] Deficiency anemia (please specify type) [] Iron deficiency anemia [] Macrocytic anemia [] Microcytic anemia [] Normocytic anemia [] Pernicious anemia [] Other anemia (please specify) [] Clinically unable to determine [] Unknown Based on your medical judgment of the clinical indicators outlined above please clarify the following: [] Practitioner response [] If unable to determine, please check the box, sign and date. Present On Admission (POA) Indicator: [] Present at the time of admission [] Not present at the time of admission [] Clinically Undetermined In responding to this query, please exercise your independent professional judgment. The fact that a question is asked does not imply that any particular answer is desired or expected. Thank you for your clarification on this documentation. If you have any questions please call:extension [phone] * Thank you, Radhika Velázquez RN CDMP MTDD
--- NOTE | 2017-08-20 12:51 | CP.PCM.PN ---
Subjective - Date & Time of Evaluation Date of Evaluation: 08/20/17 Time of Evaluation: 09:00 - Subjective Subjective: discussed on rounds wbc trending up urine c/s + azactam added skin with severe ulcerations and cellulitis Objective - Vital Signs/Intake and Output Vital Signs (last 24 hours): Temp Pulse Resp BP Pulse Ox 97.9 F 82 20 115/76 98 08/20/17 12:06 08/20/17 12:06 08/20/17 12:06 08/20/17 12:06 08/20/17 12:06 - Medications Medications: Current Medications Amlodipine Besylate (Norvasc) 5 mg PO QPM [facility] Last Admin: 08/19/17 17:08 Dose: 5 mg Atorvastatin Calcium (Lipitor) 20 mg PO QPM [facility] Last Admin: 08/19/17 17:08 Dose: 20 mg Fluconazole (Diflucan) 100 mg PO DAILY [facility] PRN Reason: Protocol Last Admin: 08/20/17 09:41 Dose: 100 mg Hydrochlorothiazide (Hydrodiuril) 25 mg PO QPM [facility] Last Admin: 08/19/17 17:08 Dose: 25 mg Iron Sucrose 100 mg/ Sodium (Chloride) 105 mls @ 105 mls/hr IVPB DAILY [facility] Last Admin: 08/19/17 10:02 Dose: 105 mls/hr Vancomycin HCl 1 gm/ Sodium (Chloride) 250 mls @ 166.667 mls/hr IVPB Q12 [facility] PRN Reason: Protocol Last Admin: 08/20/17 09:00 Dose: 166.667 mls/hr Aztreonam 1 gm/ Sodium (Chloride) 100 mls @ 100 mls/hr IVPB Q8 [facility] PRN Reason: Protocol Insulin Human Regular (Humulin R) 0 units SC ACHS [facility] PRN Reason: Protocol Last Admin: 08/20/17 06:45 Dose: Not Given Lisinopril (Zestril) 20 mg PO QPM [facility] Last Admin: 08/19/17 17:09 Dose: 20 mg Metformin HCl (Glucophage) 1,000 mg PO BIDWM [facility] Montelukast Sodium (Singulair) 10 mg PO QPM [facility] Last Admin: 08/19/17 20:38 Dose: 10 mg Nystatin (Nystop Topical Powder) 1 applic TOP TID [facility] Last Admin: 08/20/17 09:41 Dose: 1 applic Oxybutynin Chloride (Ditropan Tab) 5 mg PO QPM [facility] Last Admin: 08/19/17 17:08 Dose: 5 mg Sitagliptin Phosphate (Januvia) 100 mg PO DAILY [facility] - Labs Labs: 08/20/17 05:53 08/20/17 05:53 - Constitutional Appears: Non-toxic, Chronically Ill - Head Exam Head Exam: NORMOCEPHALIC - Eye Exam Eye Exam: PERRL - ENT Exam ENT Exam: Mucous Membranes Dry - Neck Exam Neck Exam: absent: Lymphadenopathy - Respiratory Exam Respiratory Exam: Decreased Breath Sounds - Cardiovascular Exam Cardiovascular Exam: REGULAR RHYTHM - GI/Abdominal Exam GI & Abdominal Exam: Distended - Rectal Exam Rectal Exam: Deferred - Extremities Exam Extremities Exam: absent: Pedal Edema - Back Exam Back Exam: absent: CVA tenderness (L), CVA tenderness (R) Assessment and Plan - Assessment and Plan (Free Text) Plan: severe cellulitis multiple skin wounds uti r/o sepsis await cultueres
[2017-08-20] MEDS: Aztreonam 1 GM in Sodium Chloride 0.9% 100 ML IVPB SCH ×2 (13:00→18:24)
--- NOTE | 2017-08-20 15:19 | CP.PCM.PN ---
Subjective - Date & Time of Evaluation Date of Evaluation: 08/20/17 Time of Evaluation: 10:00 - Subjective Subjective: Patient seen and examined at bedside with attending- Dr. Cunningham. Awake, alert. Denies chest pain, SOB, nausea, fever, or chills. Patient is aware of new medications to achieve better glycemic control. Objective - Vital Signs/Intake and Output Vital Signs (last 24 hours): Temp Pulse Resp BP Pulse Ox 97.9 F 82 20 115/76 98 08/20/17 12:06 08/20/17 12:06 08/20/17 12:06 08/20/17 12:06 08/20/17 12:06 - Medications Medications: Current Medications Amlodipine Besylate (Norvasc) 5 mg PO QPM [facility] Last Admin: 08/19/17 17:08 Dose: 5 mg Atorvastatin Calcium (Lipitor) 20 mg PO QPM [facility] Last Admin: 08/19/17 17:08 Dose: 20 mg Fluconazole (Diflucan) 100 mg PO DAILY [facility] PRN Reason: Protocol Last Admin: 08/20/17 09:41 Dose: 100 mg Hydrochlorothiazide (Hydrodiuril) 25 mg PO QPM [facility] Last Admin: 08/19/17 17:08 Dose: 25 mg Iron Sucrose 100 mg/ Sodium (Chloride) 105 mls @ 105 mls/hr IVPB DAILY [facility] Last Admin: 08/20/17 13:00 Dose: 105 mls/hr Vancomycin HCl 1 gm/ Sodium (Chloride) 250 mls @ 166.667 mls/hr IVPB Q12 [facility] PRN Reason: Protocol Last Admin: 08/20/17 09:00 Dose: 166.667 mls/hr Aztreonam 1 gm/ Sodium (Chloride) 100 mls @ 100 mls/hr IVPB Q8 [facility] PRN Reason: Protocol Last Admin: 08/20/17 13:00 Dose: 100 mls/hr Insulin Human Regular (Humulin R) 0 units SC ACHS [facility] PRN Reason: Protocol Last Admin: 08/20/17 12:00 Dose: 2 units Lisinopril (Zestril) 20 mg PO QPM [facility] Last Admin: 08/19/17 17:09 Dose: 20 mg Metformin HCl (Glucophage) 1,000 mg PO BIDWM [facility] Montelukast Sodium (Singulair) 10 mg PO QPM [facility] Last Admin: 08/19/17 20:38 Dose: 10 mg Nystatin (Nystop Topical Powder) 1 applic TOP TID [facility] Last Admin: 08/20/17 13:00 Dose: 1 applic Oxybutynin Chloride (Ditropan Tab) 5 mg PO QPM [facility] Last Admin: 08/19/17 17:08 Dose: 5 mg Sitagliptin Phosphate (Januvia) 100 mg PO DAILY [facility] Last Admin: 08/20/17 13:00 Dose: 100 mg - Labs Labs: 08/20/17 05:53 08/20/17 05:53 - Constitutional Appears: No Acute Distress - Head Exam Head Exam: ATRAUMATIC, NORMOCEPHALIC - Eye Exam Eye Exam: EOMI - ENT Exam ENT Exam: Mucous Membranes Moist - Neck Exam Neck Exam: Full ROM - Respiratory Exam Respiratory Exam: Clear to Ausculation Bilateral, NORMAL BREATHING PATTERN - Cardiovascular Exam Cardiovascular Exam: REGULAR RHYTHM, +S1, +S2 - GI/Abdominal Exam GI & Abdominal Exam: Soft (obese), Normal Bowel Sounds - Extremities Exam Extremities Exam: Full ROM. absent: Calf Tenderness, Pedal Edema - Neurological Exam Neurological Exam: Alert, Awake, CN II-XII Intact, Oriented x3 - Psychiatric Exam Psychiatric exam: Normal Affect, Normal Mood - Skin Skin Exam: Erythema (surrounding multiple stage 1 ulcers under BL breast and lower abdominal skin fold), Warm Assessment and Plan - Assessment and Plan (Free Text) Assessment: 61 yr old F admitted for hypoglycemia and symptomatic anemia, found to have multiple stage 1 ulcers. -f/u next day CBC, patient is s/p transfusion of 2 units pRBC's -ID on consult: will follow recommendations, antibiotics adjusted -f/u wound cultures -moderate carbohydrate diet, insulin coverage scale, hypoglycemia protocol in place -FOBT negative -urine culture + for GNR over 100k -will add metformin and januvia for better glycemic control, dietitian -out of bed PT/OT
[2017-08-21] MEDS: Aztreonam 1 GM in Sodium Chloride 0.9% 100 ML IVPB SCH ×3 (00:32→16:52)
[2017-08-21 05:57] LABS: HEMOGLOBIN 9.2 g/dL (12.0-16.0); MEAN CORPUSCULAR HEMOGLOBIN 26.8 pg (27.0-31.0); MEAN CORPUSCULAR HGB CONC 32.7 g/dL (33.0-37.0); RBC 3.43 Mil/uL (3.80-5.20); RED CELL DISTRIBUTION WIDTH 16.2 % (11.5-14.5); WHITE BLOOD COUNT 15.7 K/uL (4.8-10.8)
[2017-08-21 06:14] LABS: BLOOD UREA NITROGEN 14 mg/dl (7-17); CALCIUM 9.2 mg/dL (8.4-10.2); GFR AFRICAN-AMERICAN > 60; GFR NON-AFRICAN AMERICAN 51
[2017-08-21] MEDS: Insulin Regular 100 units/ml SC SCH ×4 (06:40→22:00)
--- NOTE | 2017-08-21 11:47 | CP.PCM.CON ---
<Jorge Torre Aristeo - Last Filed: 08/21/17 11:52> History of Present Illness - History of Present Illness History of Present Illness: General Surgery: Dr Bruno Pt is a 61F with PMH of htn, dm, multiple abdominal surgeries and TAHBSO. Pt admitted for dizziness and syncopal event. Found to be anemic and transfused. While here, pt reported recurrent episodes of abscesses under the breasts bilaterally as well as under the pannus of the abdomen. Pt states these have been going on for years and tend to come and go. Pt has been using dessicating powder and creams but without benefit. Denies any fevers, chills, nausea or vomiting. Pt did mention she was having brbpr earlier when attempting BM Review of Systems - Review of Systems All systems: reviewed and no additional remarkable complaints except (as per hpi ) Past Patient History - Infectious Disease Hx of Infectious Diseases: None - Past Medical History & Family History Past Medical History?: Yes - Past Social History Smoking Status: Never Smoked - CARDIAC Hx Cardiac Disorders: Yes Hx Hypercholesterolemia: Yes Hx Hypertension: Yes - PULMONARY Hx Respiratory Disorders: Yes Hx Sleep Apnea: Yes (uses CPAP at night) - NEUROLOGICAL Hx Neurological Disorder: No - HEENT Hx HEENT Problems: No - RENAL Hx Chronic Kidney Disease: No - ENDOCRINE/METABOLIC Hx Endocrine Disorders: Yes Hx Diabetes Mellitus Type 2: Yes - HEMATOLOGICAL/ONCOLOGICAL Hx Blood Disorders: Yes Hx Blood Transfusions: No - INTEGUMENTARY Hx Dermatological Problems: Yes Hx Cellulitis: Yes Other/Comment: Under breasts rash/drainage - MUSCULOSKELETAL/RHEUMATOLOGICAL Hx Musculoskeletal Disorders: Yes Hx Falls: No Hx Fractures: Yes (fibula 3-4 yrs ago) - GASTROINTESTINAL Hx Gastrointestinal Disorders: Yes Other/Comment: abdominal surgery - GENITOURINARY/GYNECOLOGICAL Hx Genitourinary Disorders: No - PSYCHIATRIC Hx Psychophysiologic Disorder: No Hx Substance Use: No - SURGICAL HISTORY Hx Surgeries: Yes Hx Hysterectomy: Yes - ANESTHESIA Hx Anesthesia: Yes Hx Anesthesia Reactions: No Hx Malignant Hyperthermia: No Meds Allergies/Adverse Reactions: Allergies Allergy/AdvReac Type Severity Reaction Status Date / Time No Known Allergies Allergy Verified 06/26/15 11:09 - Medications Medications: Current Medications Amlodipine Besylate (Norvasc) 5 mg PO QPM [facility] Last Admin: 08/20/17 17:00 Dose: 5 mg Atorvastatin Calcium (Lipitor) 20 mg PO QPM [facility] Last Admin: 08/20/17 18:22 Dose: 20 mg Fluconazole (Diflucan) 100 mg PO DAILY [facility] PRN Reason: Protocol Last Admin: 08/21/17 09:21 Dose: 100 mg Hydrochlorothiazide (Hydrodiuril) 25 mg PO QPM [facility] Last Admin: 08/20/17 18:21 Dose: 25 mg Iron Sucrose 100 mg/ Sodium (Chloride) 105 mls @ 105 mls/hr IVPB DAILY [facility] Last Admin: 08/20/17 13:00 Dose: 105 mls/hr Vancomycin HCl 1 gm/ Sodium (Chloride) 250 mls @ 166.667 mls/hr IVPB Q12 [facility] PRN Reason: Protocol Last Admin: 08/21/17 11:01 Dose: 166.667 mls/hr Aztreonam 1 gm/ Sodium (Chloride) 100 mls @ 100 mls/hr IVPB Q8 [facility] PRN Reason: Protocol Last Admin: 08/21/17 10:53 Dose: 100 mls/hr Insulin Human Regular (Humulin R) 0 units SC ACHS [facility] PRN Reason: Protocol Last Admin: 08/21/17 06:40 Dose: Not Given Lisinopril (Zestril) 20 mg PO QPM [facility] Last Admin: 08/20/17 18:00 Dose: 20 mg Metformin HCl (Glucophage) 1,000 mg PO BIDWM [facility] Last Admin: 08/21/17 09:22 Dose: 1,000 mg Montelukast Sodium (Singulair) 10 mg PO QPM [facility] Last Admin: 08/20/17 18:23 Dose: 10 mg Nystatin (Nystop Topical Powder) 1 applic TOP TID [facility] Last Admin: 08/21/17 09:22 Dose: 1 applic Oxybutynin Chloride (Ditropan Tab) 5 mg PO QPM [facility] Last Admin: 08/20/17 18:20 Dose: 5 mg Sitagliptin Phosphate (Januvia) 100 mg PO DAILY [facility] Last Admin: 08/21/17 09:22 Dose: 100 mg Physical Exam - Constitutional Appears: Non-toxic, No Acute Distress - ENT Exam ENT Exam: Mucous Membranes Dry - Respiratory Exam Respiratory Exam: absent: Accessory Muscle Use, Respiratory Distress - Cardiovascular Exam Cardiovascular Exam: REGULAR RHYTHM. absent: Tachycardia - GI/Abdominal Exam GI & Abdominal Exam: Soft. absent: Distended, Firm, Guarding, Tenderness Additional comments: multiple lesions in various stages of healing under the lower abdominal pannus - Extremities Exam Extremities exam: Negative for: pedal edema - Neurological Exam Neurological exam: Alert, Oriented x3 - Psychiatric Exam Psychiatric exam: Normal Affect - Skin Skin Exam: Normal Color, Warm Additional comments: multiple abscesses under b/l breasts, no fluctuance noted, minimal purulent drainage, Results - Vital Signs Recent Vital Signs: Last Vital Signs Temp 98.4 F 08/21/17 09:00 Pulse 77 08/21/17 09:53 Resp 20 08/21/17 09:00 BP 103/66 08/21/17 09:00 Pulse Ox 98 08/21/17 09:53 - Labs Result Diagrams: 08/21/17 04:55 08/21/17 04:55 Labs: Laboratory Results - last 24 hr 08/20/17 08/20/17 08/20/17 11:49 16:39 21:57 WBC RBC Hgb Hct MCV MCH MCHC RDW Plt Count Sodium Potassium Chloride Carbon Dioxide Anion Gap BUN Creatinine Est GFR ( Amer) Est GFR (Non-Af Amer) POC Glucose (mg/dL) 157 H 109 133 H Random Glucose Calcium 08/21/17 08/21/17 08/21/17 04:55 04:55 05:41 WBC 15.7 H RBC 3.43 L Hgb 9.2 L Hct 28.1 L MCV 82.0 MCH 26.8 L MCHC 32.7 L RDW 16.2 H Plt Count 345 Sodium 139 Potassium 4.4 Chloride 102 Carbon Dioxide 26 Anion Gap 15 BUN 14 Creatinine 1.1 Est GFR ( Amer) > 60 Est GFR (Non-Af Amer) 51 POC Glucose (mg/dL) 105 Random Glucose 122 H Calcium 9.2 08/21/17 11:06 WBC RBC Hgb Hct MCV MCH MCHC RDW Plt Count Sodium Potassium Chloride Carbon Dioxide Anion Gap BUN Creatinine Est GFR ( Amer) Est GFR (Non-Af Amer) POC Glucose (mg/dL) 126 H Random Glucose Calcium Assessment & Plan - Assessment and Plan (Free Text) Assessment: 61F with multiple abscesses: dx: hidradenitis suppurotiva Plan: pt his hidradenitis tx: abx as per ID no surgical intervention needed would recommend GI consult given acute anemia and reports of lower GI bleed d/w and evaluated with Dr Damion Torre, PGY3 <Canelo Bruno - Last Filed: 08/21/17 13:06> History of Present Illness - History of Present Illness History of Present Illness: Patient was seen and examined at the bedside. Agree with resident's note above. Meds - Medications Medications: Current Medications Amlodipine Besylate (Norvasc) 5 mg PO QPM [facility] Last Admin: 08/20/17 17:00 Dose: 5 mg Atorvastatin Calcium (Lipitor) 20 mg PO QPM [facility] Last Admin: 08/20/17 18:22 Dose: 20 mg Fluconazole (Diflucan) 100 mg PO DAILY [facility] PRN Reason: Protocol Last Admin: 08/21/17 09:21 Dose: 100 mg Hydrochlorothiazide (Hydrodiuril) 25 mg PO QPM [facility] Last Admin: 08/20/17 18:21 Dose: 25 mg Iron Sucrose 100 mg/ Sodium (Chloride) 105 mls @ 105 mls/hr IVPB DAILY [facility] Last Admin: 08/20/17 13:00 Dose: 105 mls/hr Vancomycin HCl 1 gm/ Sodium (Chloride) 250 mls @ 166.667 mls/hr IVPB Q12 [facility] PRN Reason: Protocol Last Admin: 08/21/17 11:01 Dose: 166.667 mls/hr Aztreonam 1 gm/ Sodium (Chloride) 100 mls @ 100 mls/hr IVPB Q8 [facility] PRN Reason: Protocol Last Admin: 08/21/17 10:53 Dose: 100 mls/hr Insulin Human Regular (Humulin R) 0 units SC ACHS [facility] PRN Reason: Protocol Last Admin: 08/21/17 06:40 Dose: Not Given Lisinopril (Zestril) 20 mg PO QPM [facility] Last Admin: 08/20/17 18:00 Dose: 20 mg Metformin HCl (Glucophage) 1,000 mg PO BIDWM [facility] Last Admin: 08/21/17 09:22 Dose: 1,000 mg Montelukast Sodium (Singulair) 10 mg PO QPM [facility] Last Admin: 08/20/17 18:23 Dose: 10 mg Nystatin (Nystop Topical Powder) 1 applic TOP TID [facility] Last Admin: 08/21/17 09:22 Dose: 1 applic Oxybutynin Chloride (Ditropan Tab) 5 mg PO QPM [facility] Last Admin: 08/20/17 18:20 Dose: 5 mg Sitagliptin Phosphate (Januvia) 100 mg PO DAILY [facility] Last Admin: 08/21/17 09:22 Dose: 100 mg Results - Vital Signs Recent Vital Signs: Last Vital Signs Temp 98.3 F 08/21/17 12:00 Pulse 67 08/21/17 12:00 Resp 20 08/21/17 12:00 BP 106/68 08/21/17 12:00 Pulse Ox 97 08/21/17 12:00 - Labs Result Diagrams: 08/21/17 04:55 08/21/17 04:55 Labs: Laboratory Results - last 24 hr 08/20/17 08/20/17 08/21/17 16:39 21:57 04:55 WBC 15.7 H RBC 3.43 L Hgb 9.2 L Hct 28.1 L MCV 82.0 MCH 26.8 L MCHC 32.7 L RDW 16.2 H Plt Count 345 Sodium Potassium Chloride Carbon Dioxide Anion Gap BUN Creatinine Est GFR ( Amer) Est GFR (Non-Af Amer) POC Glucose (mg/dL) 109 133 H Random Glucose Calcium 08/21/17 08/21/17 08/21/17 04:55 05:41 11:06 WBC RBC Hgb Hct MCV MCH MCHC RDW Plt Count Sodium 139 Potassium 4.4 Chloride 102 Carbon Dioxide 26 Anion Gap 15 BUN 14 Creatinine 1.1 Est GFR ( Amer) > 60 Est GFR (Non-Af Amer) 51 POC Glucose (mg/dL) 105 126 H Random Glucose 122 H Calcium 9.2 Assessment & Plan - Assessment and Plan (Free Text) Plan: - No surgical intervention at present time - Continue antibiotics as per ID - Repeat labs in am - Will follow
--- NOTE | 2017-08-21 13:31 | CP.PCM.PN ---
Subjective - Date & Time of Evaluation Date of Evaluation: 08/21/17 Time of Evaluation: 10:20 - Subjective Subjective: Patient seen and examined at bedside with attending-Dr. Cunningham. Denies fevers, chills, chest pain, SOB or dizziness. Objective - Vital Signs/Intake and Output Vital Signs (last 24 hours): Temp Pulse Resp BP Pulse Ox 98.3 F 67 20 106/68 97 08/21/17 12:00 08/21/17 12:00 08/21/17 12:00 08/21/17 12:00 08/21/17 12:00 Intake and Output: 08/21/17 08/21/17 06:59 18:59 Intake Total 350 Balance 350 - Medications Medications: Current Medications Amlodipine Besylate (Norvasc) 5 mg PO QPM [facility] Last Admin: 08/20/17 17:00 Dose: 5 mg Atorvastatin Calcium (Lipitor) 20 mg PO QPM [facility] Last Admin: 08/20/17 18:22 Dose: 20 mg Fluconazole (Diflucan) 100 mg PO DAILY [facility] PRN Reason: Protocol Last Admin: 08/21/17 09:21 Dose: 100 mg Hydrochlorothiazide (Hydrodiuril) 25 mg PO QPM [facility] Last Admin: 08/20/17 18:21 Dose: 25 mg Iron Sucrose 100 mg/ Sodium (Chloride) 105 mls @ 105 mls/hr IVPB DAILY [facility] Last Admin: 08/20/17 13:00 Dose: 105 mls/hr Vancomycin HCl 1 gm/ Sodium (Chloride) 250 mls @ 166.667 mls/hr IVPB Q12 [facility] PRN Reason: Protocol Last Admin: 08/21/17 11:01 Dose: 166.667 mls/hr Aztreonam 1 gm/ Sodium (Chloride) 100 mls @ 100 mls/hr IVPB Q8 [facility] PRN Reason: Protocol Last Admin: 08/21/17 10:53 Dose: 100 mls/hr Insulin Human Regular (Humulin R) 0 units SC ACHS [facility] PRN Reason: Protocol Last Admin: 08/21/17 13:08 Dose: Not Given Lisinopril (Zestril) 20 mg PO QPM [facility] Last Admin: 08/20/17 18:00 Dose: 20 mg Metformin HCl (Glucophage) 1,000 mg PO BIDWM [facility] Last Admin: 08/21/17 09:22 Dose: 1,000 mg Montelukast Sodium (Singulair) 10 mg PO QPM [facility] Last Admin: 08/20/17 18:23 Dose: 10 mg Nystatin (Nystop Topical Powder) 1 applic TOP TID [facility] Last Admin: 08/21/17 13:09 Dose: 1 applic Oxybutynin Chloride (Ditropan Tab) 5 mg PO QPM [facility] Last Admin: 08/20/17 18:20 Dose: 5 mg Sitagliptin Phosphate (Januvia) 100 mg PO DAILY [facility] Last Admin: 08/21/17 09:22 Dose: 100 mg - Labs Labs: 08/21/17 04:55 08/21/17 04:55 - Constitutional Appears: No Acute Distress - Head Exam Head Exam: ATRAUMATIC, NORMOCEPHALIC - Eye Exam Eye Exam: EOMI - ENT Exam ENT Exam: Mucous Membranes Moist - Neck Exam Neck Exam: Full ROM - Respiratory Exam Respiratory Exam: NORMAL BREATHING PATTERN - Cardiovascular Exam Cardiovascular Exam: REGULAR RHYTHM, +S1, +S2 - GI/Abdominal Exam GI & Abdominal Exam: Soft (obese), Normal Bowel Sounds Additional comments: under lower abdominal fold: multiple small stage 2 ulcerations with surrounding erythema and malodorous discharge - Extremities Exam Extremities Exam: Full ROM. absent: Calf Tenderness, Pedal Edema - Neurological Exam Neurological Exam: Alert, Awake, CN II-XII Intact, Oriented x3 - Psychiatric Exam Psychiatric exam: Normal Affect, Normal Mood - Skin Skin Exam: Erythema (multiple stage 2 ulceratons with surrounding erythema and malodorous discharge under bilateral breasts), Warm Assessment and Plan - Assessment and Plan (Free Text) Assessment: 61 yr old F admitted for hypoglycemia and symptomatic anemia, found to have multiple stage 2 ulcers. Patient is s/p transfusion of 2 units pRBC's. -leukocytosis with minimal improvement -Surgery consulted: will follow recommendations -ID on consult: will follow recommendations, antibiotics adjusted -f/u wound cultures -moderate carbohydrate diet, insulin coverage scale, hypoglycemia protocol in place -FOBT negative, BCx negative x 48hrs -urine culture + for GNR over 100k -out of bed to chair, PT/OT
[2017-08-22] MEDS: Aztreonam 1 GM in Sodium Chloride 0.9% 100 ML IVPB SCH ×3 (01:00→17:00)
[2017-08-22] MEDS: Insulin Regular 100 units/ml SC SCH ×4 (08:00→22:21)
[2017-08-22 10:33] LABS: HEMOGLOBIN 9.3 g/dL (12.0-16.0); MEAN CELL VOLUME 82.4 fl (81.0-99.0); MEAN CORPUSCULAR HEMOGLOBIN 26.5 pg (27.0-31.0); MEAN CORPUSCULAR HGB CONC 32.2 g/dL (33.0-37.0); RBC 3.51 Mil/uL (3.80-5.20); RED CELL DISTRIBUTION WIDTH 16.2 % (11.5-14.5); WHITE BLOOD COUNT 16.4 K/uL (4.8-10.8)
--- NOTE | 2017-08-22 12:21 | CP.PCM.PN ---
<Jorge Torre - Last Filed: 08/22/17 12:19> Subjective - Date & Time of Evaluation Date of Evaluation: 08/22/17 Time of Evaluation: 12:19 - Subjective Subjective: General Surgery: Dr Bruno Pt S&EFabricio FAGAN. Tolerating diet. HgB stable. Reports skin discomfort feels slightly improved. Denies fevers. Denies bloody BM since admission. Objective - Vital Signs/Intake and Output Vital Signs (last 24 hours): Temp Pulse Resp BP Pulse Ox 97.4 F L 73 20 105/59 L 98 08/22/17 08:33 08/22/17 08:33 08/22/17 08:33 08/22/17 08:33 08/22/17 10:03 - Medications Medications: Current Medications Amlodipine Besylate (Norvasc) 5 mg PO QPM [facility] Last Admin: 08/21/17 17:10 Dose: 5 mg Atorvastatin Calcium (Lipitor) 20 mg PO QPM [facility] Last Admin: 08/21/17 17:10 Dose: 20 mg Fluconazole (Diflucan) 100 mg PO DAILY [facility] PRN Reason: Protocol Last Admin: 08/22/17 09:38 Dose: 100 mg Hydrochlorothiazide (Hydrodiuril) 25 mg PO QPM [facility] Last Admin: 08/21/17 17:09 Dose: 25 mg Iron Sucrose 100 mg/ Sodium (Chloride) 105 mls @ 105 mls/hr IVPB DAILY [facility] Last Admin: 08/22/17 09:00 Dose: 105 mls/hr Vancomycin HCl 1 gm/ Sodium (Chloride) 250 mls @ 166.667 mls/hr IVPB Q12 [facility] PRN Reason: Protocol Last Admin: 08/22/17 09:00 Dose: 166.667 mls/hr Aztreonam 1 gm/ Sodium (Chloride) 100 mls @ 100 mls/hr IVPB Q8 [facility] PRN Reason: Protocol Last Admin: 08/22/17 09:36 Dose: 100 mls/hr Insulin Human Regular (Humulin R) 0 units SC ACHS [facility] PRN Reason: Protocol Last Admin: 08/21/17 22:00 Dose: Not Given Lisinopril (Zestril) 20 mg PO QPM [facility] Last Admin: 08/21/17 17:08 Dose: 20 mg Metformin HCl (Glucophage) 1,000 mg PO BIDWM [facility] Last Admin: 08/22/17 08:00 Dose: 1,000 mg Montelukast Sodium (Singulair) 10 mg PO QPM [facility] Last Admin: 08/21/17 17:10 Dose: 10 mg Mupirocin (Bactroban Ointment) 1 applic TOP BID [facility] Last Admin: 08/22/17 09:38 Dose: 1 applic Nystatin (Nystop Topical Powder) 1 applic TOP TID [facility] Last Admin: 08/22/17 09:37 Dose: 1 applic Oxybutynin Chloride (Ditropan Tab) 5 mg PO QPM [facility] Last Admin: 08/21/17 17:09 Dose: 5 mg Sitagliptin Phosphate (Januvia) 100 mg PO DAILY [facility] Last Admin: 08/22/17 09:37 Dose: 100 mg - Labs Labs: 08/22/17 10:30 08/21/17 04:55 - Constitutional Appears: No Acute Distress - Respiratory Exam Respiratory Exam: NORMAL BREATHING PATTERN. absent: Accessory Muscle Use, Respiratory Distress - Cardiovascular Exam Cardiovascular Exam: REGULAR RHYTHM. absent: Tachycardia - GI/Abdominal Exam GI & Abdominal Exam: Soft. absent: Distended - Neurological Exam Neurological Exam: Alert, Awake, Oriented x3 - Psychiatric Exam Psychiatric exam: Normal Affect, Normal Mood - Skin Skin Exam: Normal Color Additional comments: multiple areas of abscess development in various stages Assessment and Plan - Assessment and Plan (Free Text) Assessment: 61F with hidradenitis Plan: cont abx as per ID no surgical intervention surgery will sign off, please reconsult PRN d/w Dr Damion Torre, PGY3 <Canelo Bruno - Last Filed: 08/22/17 12:22> Subjective - Subjective Subjective: Patient was seen and examined at the bedside. Agree with resident's note above. Objective - Vital Signs/Intake and Output Vital Signs (last 24 hours): Temp Pulse Resp BP Pulse Ox 97.4 F L 73 20 105/59 L 98 08/22/17 08:33 08/22/17 08:33 08/22/17 08:33 08/22/17 08:33 08/22/17 10:03 - Medications Medications: Current Medications Amlodipine Besylate (Norvasc) 5 mg PO QPM [facility] Last Admin: 08/21/17 17:10 Dose: 5 mg Atorvastatin Calcium (Lipitor) 20 mg PO QPM [facility] Last Admin: 08/21/17 17:10 Dose: 20 mg Fluconazole (Diflucan) 100 mg PO DAILY [facility] PRN Reason: Protocol Last Admin: 08/22/17 09:38 Dose: 100 mg Hydrochlorothiazide (Hydrodiuril) 25 mg PO QPM [facility] Last Admin: 08/21/17 17:09 Dose: 25 mg Iron Sucrose 100 mg/ Sodium (Chloride) 105 mls @ 105 mls/hr IVPB DAILY [facility] Last Admin: 08/22/17 09:00 Dose: 105 mls/hr Vancomycin HCl 1 gm/ Sodium (Chloride) 250 mls @ 166.667 mls/hr IVPB Q12 [facility] PRN Reason: Protocol Last Admin: 08/22/17 09:00 Dose: 166.667 mls/hr Aztreonam 1 gm/ Sodium (Chloride) 100 mls @ 100 mls/hr IVPB Q8 [facility] PRN Reason: Protocol Last Admin: 08/22/17 09:36 Dose: 100 mls/hr Insulin Human Regular (Humulin R) 0 units SC ACHS [facility] PRN Reason: Protocol Last Admin: 08/21/17 22:00 Dose: Not Given Lisinopril (Zestril) 20 mg PO QPM [facility] Last Admin: 08/21/17 17:08 Dose: 20 mg Metformin HCl (Glucophage) 1,000 mg PO BIDWM [facility] Last Admin: 08/22/17 08:00 Dose: 1,000 mg Montelukast Sodium (Singulair) 10 mg PO QPM [facility] Last Admin: 08/21/17 17:10 Dose: 10 mg Mupirocin (Bactroban Ointment) 1 applic TOP BID [facility] Last Admin: 08/22/17 09:38 Dose: 1 applic Nystatin (Nystop Topical Powder) 1 applic TOP TID [facility] Last Admin: 08/22/17 09:37 Dose: 1 applic Oxybutynin Chloride (Ditropan Tab) 5 mg PO QPM [facility] Last Admin: 08/21/17 17:09 Dose: 5 mg Sitagliptin Phosphate (Januvia) 100 mg PO DAILY [facility] Last Admin: 08/22/17 09:37 Dose: 100 mg - Labs Labs: 08/22/17 10:30 08/21/17 04:55
--- NOTE | 2017-08-22 14:02 | CP.PCM.PN ---
Subjective - Date & Time of Evaluation Date of Evaluation: 08/22/17 Time of Evaluation: 10:00 - Subjective Subjective: Patient seen and examined at bedside with attending-Dr. Cunningham. Reports minimal appetite. Denies fevers, chills, weakness or dizziness. Patient encouraged to ambulate. Objective - Vital Signs/Intake and Output Vital Signs (last 24 hours): Temp Pulse Resp BP Pulse Ox 98.4 F 73 18 98/60 L 96 08/22/17 13:03 08/22/17 13:03 08/22/17 13:03 08/22/17 13:03 08/22/17 13:03 - Medications Medications: Current Medications Amlodipine Besylate (Norvasc) 5 mg PO QPM [facility] Last Admin: 08/21/17 17:10 Dose: 5 mg Atorvastatin Calcium (Lipitor) 20 mg PO QPM [facility] Last Admin: 08/21/17 17:10 Dose: 20 mg Fluconazole (Diflucan) 100 mg PO DAILY [facility] PRN Reason: Protocol Last Admin: 08/22/17 09:38 Dose: 100 mg Hydrochlorothiazide (Hydrodiuril) 25 mg PO QPM [facility] Last Admin: 08/21/17 17:09 Dose: 25 mg Iron Sucrose 100 mg/ Sodium (Chloride) 105 mls @ 105 mls/hr IVPB DAILY [facility] Last Admin: 08/22/17 09:00 Dose: 105 mls/hr Vancomycin HCl 1 gm/ Sodium (Chloride) 250 mls @ 166.667 mls/hr IVPB Q12 [facility] PRN Reason: Protocol Last Admin: 08/22/17 09:00 Dose: 166.667 mls/hr Aztreonam 1 gm/ Sodium (Chloride) 100 mls @ 100 mls/hr IVPB Q8 [facility] PRN Reason: Protocol Last Admin: 08/22/17 09:36 Dose: 100 mls/hr Insulin Human Regular (Humulin R) 0 units SC ACHS [facility] PRN Reason: Protocol Last Admin: 08/21/17 22:00 Dose: Not Given Lisinopril (Zestril) 20 mg PO QPM [facility] Last Admin: 08/21/17 17:08 Dose: 20 mg Metformin HCl (Glucophage) 1,000 mg PO BIDWM [facility] Last Admin: 08/22/17 08:00 Dose: 1,000 mg Montelukast Sodium (Singulair) 10 mg PO QPM [facility] Last Admin: 08/21/17 17:10 Dose: 10 mg Mupirocin (Bactroban Ointment) 1 applic TOP BID [facility] Last Admin: 08/22/17 09:38 Dose: 1 applic Nystatin (Nystop Topical Powder) 1 applic TOP TID [facility] Last Admin: 08/22/17 09:37 Dose: 1 applic Oxybutynin Chloride (Ditropan Tab) 5 mg PO QPM [facility] Last Admin: 08/21/17 17:09 Dose: 5 mg Sitagliptin Phosphate (Januvia) 100 mg PO DAILY [facility] Last Admin: 08/22/17 09:37 Dose: 100 mg - Labs Labs: 08/22/17 10:30 08/21/17 04:55 - Constitutional Appears: No Acute Distress (obese) - Head Exam Head Exam: ATRAUMATIC, NORMOCEPHALIC - Eye Exam Eye Exam: EOMI - ENT Exam ENT Exam: Mucous Membranes Moist - Neck Exam Neck Exam: Full ROM - Respiratory Exam Respiratory Exam: Clear to Ausculation Bilateral, NORMAL BREATHING PATTERN - Cardiovascular Exam Cardiovascular Exam: REGULAR RHYTHM, +S1, +S2 - GI/Abdominal Exam GI & Abdominal Exam: Soft (obese), Normal Bowel Sounds. absent: Tenderness - Extremities Exam Extremities Exam: Full ROM. absent: Calf Tenderness - Neurological Exam Neurological Exam: Alert, Awake, CN II-XII Intact, Oriented x3 - Psychiatric Exam Psychiatric exam: Normal Affect, Normal Mood - Skin Skin Exam: Erythema (1-1.5 x 1-1.5 cm multiple stage 2 ulcerations with malodorous discharge under bilateral breast and lower abdominal skin fold) Assessment and Plan - Assessment and Plan (Free Text) Assessment: 61 yr old F admitted for hypoglycemia and symptomatic anemia, with multiple stage 2 ulcers. Patient has minimal improvement in discomfort from ulcers. -leukocytosis persists -ID on consult: will follow recommendations, continue IV antibiotics -Surgery consulted: will follow recommendations -wound cultures: groin culture no growth x 24 hrs -moderate carbohydrate diet, insulin coverage scale, hypoglycemia protocol in place -FOBT negative, BCx negative x 72 hrs -urine culture + for GNR over 100k -out of bed to chair, PT/OT
--- NOTE | 2017-08-22 15:05 | CP.PCM.PN ---
Subjective - Date & Time of Evaluation Date of Evaluation: 08/22/17 Time of Evaluation: 08:00 - Subjective Subjective: slow progress wound care in progress awake alert refusing SUSSY Objective - Vital Signs/Intake and Output Vital Signs (last 24 hours): Temp Pulse Resp BP Pulse Ox 98.4 F 73 18 98/60 L 96 08/22/17 13:03 08/22/17 13:03 08/22/17 13:03 08/22/17 13:03 08/22/17 13:03 - Medications Medications: Current Medications Amlodipine Besylate (Norvasc) 5 mg PO QPM [facility] Last Admin: 08/21/17 17:10 Dose: 5 mg Atorvastatin Calcium (Lipitor) 20 mg PO QPM [facility] Last Admin: 08/21/17 17:10 Dose: 20 mg Fluconazole (Diflucan) 100 mg PO DAILY [facility] PRN Reason: Protocol Last Admin: 08/22/17 09:38 Dose: 100 mg Hydrochlorothiazide (Hydrodiuril) 25 mg PO QPM [facility] Last Admin: 08/21/17 17:09 Dose: 25 mg Iron Sucrose 100 mg/ Sodium (Chloride) 105 mls @ 105 mls/hr IVPB DAILY [facility] Last Admin: 08/22/17 09:00 Dose: 105 mls/hr Vancomycin HCl 1 gm/ Sodium (Chloride) 250 mls @ 166.667 mls/hr IVPB Q12 [facility] PRN Reason: Protocol Last Admin: 08/22/17 09:00 Dose: 166.667 mls/hr Aztreonam 1 gm/ Sodium (Chloride) 100 mls @ 100 mls/hr IVPB Q8 [facility] PRN Reason: Protocol Last Admin: 08/22/17 09:36 Dose: 100 mls/hr Insulin Human Regular (Humulin R) 0 units SC ACHS [facility] PRN Reason: Protocol Last Admin: 08/21/17 22:00 Dose: Not Given Lisinopril (Zestril) 20 mg PO QPM [facility] Last Admin: 08/21/17 17:08 Dose: 20 mg Metformin HCl (Glucophage) 1,000 mg PO BIDWM [facility] Last Admin: 08/22/17 08:00 Dose: 1,000 mg Montelukast Sodium (Singulair) 10 mg PO QPM [facility] Last Admin: 08/21/17 17:10 Dose: 10 mg Mupirocin (Bactroban Ointment) 1 applic TOP BID [facility] Last Admin: 08/22/17 09:38 Dose: 1 applic Nystatin (Nystop Topical Powder) 1 applic TOP TID [facility] Last Admin: 08/22/17 09:37 Dose: 1 applic Oxybutynin Chloride (Ditropan Tab) 5 mg PO QPM [facility] Last Admin: 08/21/17 17:09 Dose: 5 mg Sitagliptin Phosphate (Januvia) 100 mg PO DAILY [facility] Last Admin: 08/22/17 09:37 Dose: 100 mg - Labs Labs: 08/22/17 10:30 08/21/17 04:55 - Constitutional Appears: Non-toxic, Chronically Ill - Head Exam Head Exam: NORMOCEPHALIC - Eye Exam Eye Exam: PERRL - ENT Exam ENT Exam: Normal External Ear Exam - Neck Exam Neck Exam: absent: Lymphadenopathy - Respiratory Exam Respiratory Exam: Decreased Breath Sounds - Cardiovascular Exam Cardiovascular Exam: REGULAR RHYTHM - GI/Abdominal Exam GI & Abdominal Exam: Distended, Soft - Rectal Exam Rectal Exam: Deferred - Exam Exam: NORMAL INSPECTION - Extremities Exam Extremities Exam: absent: Pedal Edema - Back Exam Back Exam: absent: CVA tenderness (L), CVA tenderness (R) - Neurological Exam Neurological Exam: Alert, Awake, Oriented x3 Neuro motor strength exam: Left Upper Extremity: 4, Right Upper Extremity: 4, Left Lower Extremity: 4, Right Lower Extremity: 4 - Psychiatric Exam Psychiatric exam: Depressed - Skin Skin Exam: Dry Assessment and Plan - Assessment and Plan (Free Text) Assessment: cont rx cellulitis/ uti/ uncontrolled diabetes
[2017-08-23] MEDS: Aztreonam 1 GM in Sodium Chloride 0.9% 100 ML IVPB SCH ×3 (00:13→17:00)
[2017-08-23] MEDS: Insulin Regular 100 units/ml SC SCH ×4 (07:08→21:42)
[2017-08-23 07:22] LABS: MEAN CELL VOLUME 82.5 fl (81.0-99.0); MEAN CORPUSCULAR HEMOGLOBIN 26.4 pg (27.0-31.0); RBC 3.42 Mil/uL (3.80-5.20); RED CELL DISTRIBUTION WIDTH 16.4 % (11.5-14.5); WHITE BLOOD COUNT 14.2 K/uL (4.8-10.8)
[2017-08-23 07:38] LABS: BLOOD UREA NITROGEN 12 mg/dl (7-17); CALCIUM 9.2 mg/dL (8.4-10.2); GFR AFRICAN-AMERICAN > 60; GFR NON-AFRICAN AMERICAN 57
--- NOTE | 2017-08-23 12:53 | CP.PCM.PN ---
Subjective - Date & Time of Evaluation Date of Evaluation: 08/23/17 Time of Evaluation: 12:52 - Subjective Subjective: Still with elevated WBC. Currently on tx for UTI Has no fever. Objective - Vital Signs/Intake and Output Vital Signs (last 24 hours): Temp Pulse Resp BP Pulse Ox 97.6 F 70 18 110/71 97 08/23/17 12:49 08/23/17 12:49 08/23/17 12:49 08/23/17 12:49 08/23/17 12:49 - Medications Medications: Current Medications Amlodipine Besylate (Norvasc) 5 mg PO QPM [facility] Last Admin: 08/21/17 17:10 Dose: 5 mg Atorvastatin Calcium (Lipitor) 20 mg PO QPM [facility] Last Admin: 08/22/17 17:17 Dose: 20 mg Fluconazole (Diflucan) 100 mg PO DAILY [facility] PRN Reason: Protocol Last Admin: 08/23/17 09:20 Dose: 100 mg Hydrochlorothiazide (Hydrodiuril) 25 mg PO QPM [facility] Last Admin: 08/22/17 17:17 Dose: 25 mg Iron Sucrose 100 mg/ Sodium (Chloride) 105 mls @ 105 mls/hr IVPB DAILY [facility] Last Admin: 08/22/17 09:00 Dose: 105 mls/hr Vancomycin HCl 1 gm/ Sodium (Chloride) 250 mls @ 166.667 mls/hr IVPB Q12 [facility] PRN Reason: Protocol Last Admin: 08/23/17 09:00 Dose: 166.667 mls/hr Aztreonam 1 gm/ Sodium (Chloride) 100 mls @ 100 mls/hr IVPB Q8 [facility] PRN Reason: Protocol Last Admin: 08/23/17 09:00 Dose: 100 mls/hr Insulin Human Regular (Humulin R) 0 units SC ACHS [facility] PRN Reason: Protocol Last Admin: 08/23/17 07:08 Dose: Not Given Lisinopril (Zestril) 20 mg PO QPM [facility] Last Admin: 08/22/17 17:17 Dose: 20 mg Metformin HCl (Glucophage) 1,000 mg PO BIDWM [facility] Last Admin: 08/22/17 08:00 Dose: 1,000 mg Montelukast Sodium (Singulair) 10 mg PO QPM [facility] Last Admin: 08/22/17 18:50 Dose: 10 mg Mupirocin (Bactroban Ointment) 1 applic TOP BID [facility] Last Admin: 08/23/17 09:19 Dose: 1 applic Nystatin (Nystop Topical Powder) 1 applic TOP TID [facility] Last Admin: 08/23/17 09:20 Dose: 1 applic Oxybutynin Chloride (Ditropan Tab) 5 mg PO QPM [facility] Last Admin: 08/21/17 17:09 Dose: 5 mg Sitagliptin Phosphate (Januvia) 100 mg PO DAILY [facility] Last Admin: 08/23/17 09:21 Dose: 100 mg - Labs Labs: 08/23/17 06:00 08/23/17 06:00
[2017-08-24] MEDS: Aztreonam 1 GM in Sodium Chloride 0.9% 100 ML IVPB SCH ×2 (00:56→09:16)
[2017-08-24 08:07] VITALS: RESP 20
[2017-08-24] MEDS: Insulin Regular 100 units/ml SC SCH ×4 (08:33→22:00)
--- NOTE | 2017-08-24 13:19 | CP.PCM.PN ---
Subjective - Date & Time of Evaluation Date of Evaluation: 08/24/17 Time of Evaluation: 07:00 - Subjective Subjective: wounds slowly healing denies fever Objective - Vital Signs/Intake and Output Vital Signs (last 24 hours): Temp Pulse Resp BP Pulse Ox 99 F 71 20 104/58 L 98 08/24/17 08:07 08/24/17 08:07 08/24/17 08:07 08/24/17 08:07 08/24/17 08:07 Intake and Output: 08/24/17 08/24/17 06:59 18:59 Intake Total 350 Balance 350 - Medications Medications: Current Medications Amlodipine Besylate (Norvasc) 5 mg PO QPM [facility] Last Admin: 08/21/17 17:10 Dose: 5 mg Atorvastatin Calcium (Lipitor) 20 mg PO QPM [facility] Last Admin: 08/22/17 17:17 Dose: 20 mg Fluconazole (Diflucan) 100 mg PO DAILY [facility] PRN Reason: Protocol Last Admin: 08/24/17 09:17 Dose: 100 mg Hydrochlorothiazide (Hydrodiuril) 25 mg PO QPM [facility] Last Admin: 08/22/17 17:17 Dose: 25 mg Iron Sucrose 100 mg/ Sodium (Chloride) 105 mls @ 105 mls/hr IVPB DAILY [facility] Last Admin: 08/24/17 09:45 Dose: 105 mls/hr Vancomycin HCl 1 gm/ Sodium (Chloride) 250 mls @ 166.667 mls/hr IVPB Q12 [facility] PRN Reason: Protocol Last Admin: 08/24/17 09:23 Dose: 166.667 mls/hr Aztreonam 1 gm/ Sodium (Chloride) 50 mls @ 50 mls/hr IVPB Q8 [facility] PRN Reason: Protocol Insulin Human Regular (Humulin R) 0 units SC ACHS [facility] PRN Reason: Protocol Last Admin: 08/24/17 12:57 Dose: Not Given Lisinopril (Zestril) 20 mg PO QPM [facility] Last Admin: 08/22/17 17:17 Dose: 20 mg Metformin HCl (Glucophage) 1,000 mg PO BIDWM [facility] Last Admin: 08/22/17 08:00 Dose: 1,000 mg Montelukast Sodium (Singulair) 10 mg PO QPM [facility] Last Admin: 08/23/17 17:24 Dose: 10 mg Mupirocin (Bactroban Ointment) 1 applic TOP BID [facility] Last Admin: 08/24/17 09:17 Dose: 1 applic Nystatin (Nystop Topical Powder) 1 applic TOP TID [facility] Last Admin: 08/24/17 12:58 Dose: 1 applic Oxybutynin Chloride (Ditropan Tab) 5 mg PO QPM [facility] Last Admin: 08/23/17 17:20 Dose: 5 mg Sitagliptin Phosphate (Januvia) 100 mg PO DAILY [facility] Last Admin: 08/24/17 09:21 Dose: 100 mg - Labs Labs: 08/23/17 06:00 08/23/17 06:00 - Constitutional Appears: Non-toxic, Chronically Ill - Head Exam Head Exam: NORMOCEPHALIC - Eye Exam Eye Exam: PERRL. absent: Scleral icterus - ENT Exam ENT Exam: Normal External Ear Exam - Neck Exam Neck Exam: absent: Lymphadenopathy - Respiratory Exam Respiratory Exam: Decreased Breath Sounds - Cardiovascular Exam Cardiovascular Exam: REGULAR RHYTHM, +S1, +S2 - GI/Abdominal Exam GI & Abdominal Exam: Distended, Soft - Rectal Exam Rectal Exam: Deferred - Exam Exam: NORMAL INSPECTION - Extremities Exam Extremities Exam: absent: Pedal Edema - Back Exam Back Exam: absent: CVA tenderness (L), CVA tenderness (R) - Neurological Exam Neurological Exam: Alert, Awake, Oriented x3 Neuro motor strength exam: Right Upper Extremity: 0, Left Lower Extremity: 0, Right Lower Extremity: 0 Assessment and Plan - Assessment and Plan (Free Text) Assessment: cont iv antibiotics and wound care needs wound care follow up
[2017-08-24 17:52] LABS: HEMOGLOBIN 9.4 g/dL (12.0-16.0); MEAN CELL VOLUME 82.6 fl (81.0-99.0); MEAN CORPUSCULAR HEMOGLOBIN 26.7 pg (27.0-31.0); MEAN CORPUSCULAR HGB CONC 32.4 g/dL (33.0-37.0); RBC 3.51 Mil/uL (3.80-5.20); RED CELL DISTRIBUTION WIDTH 16.2 % (11.5-14.5); WHITE BLOOD COUNT 14.7 K/uL (4.8-10.8)
[2017-08-24] MEDS: Tmp-Smz 800 mg-160 mg DS Tab PO SCH (21:00)
[2017-08-25 06:54] LABS: HEMOGLOBIN 9.8 g/dL (12.0-16.0); MEAN CORPUSCULAR HEMOGLOBIN 27.1 pg (27.0-31.0); RBC 3.63 Mil/uL (3.80-5.20); RED CELL DISTRIBUTION WIDTH 15.9 % (11.5-14.5)
[2017-08-25 07:07] LABS: ALB/GLOB RATIO 0.8 (1.0-2.1); ALBUMIN 3.6 g/dL (3.5-5.0); ALT/SGPT 42 U/L (9-52); AST/SGOT 42 U/L (14-36); BLOOD UREA NITROGEN 10 mg/dl (7-17); CALCIUM 9.4 mg/dL (8.4-10.2); GFR AFRICAN-AMERICAN > 60; GFR NON-AFRICAN AMERICAN 57
[2017-08-25] MEDS: Insulin Regular 100 units/ml SC SCH ×2 (07:49→11:30)
[2017-08-25 08:11] VITALS: BP 94/56; PULSE 67; TEMP 98.8
[2017-08-25] MEDS: Tmp-Smz 800 mg-160 mg DS Tab PO SCH (09:13)
[2017-08-25 12:07] VITALS: O2SAT 98
--- NOTE | 2017-08-25 12:17 | CP.PCM.PN ---
Subjective - Date & Time of Evaluation Date of Evaluation: 08/25/17 Time of Evaluation: 07:00 - Subjective Subjective: improving wounds no fever Objective - Vital Signs/Intake and Output Vital Signs (last 24 hours): Temp Pulse Resp BP Pulse Ox 98.8 F 67 20 94/56 L 98 08/25/17 08:10 08/25/17 11:54 08/25/17 08:10 08/25/17 08:10 08/25/17 11:54 Intake and Output: 08/25/17 08/25/17 06:59 18:59 Intake Total 350 Balance 350 - Medications Medications: Current Medications Amlodipine Besylate (Norvasc) 5 mg PO QPM [facility] Last Admin: 08/21/17 17:10 Dose: 5 mg Atorvastatin Calcium (Lipitor) 20 mg PO QPM [facility] Last Admin: 08/24/17 17:14 Dose: 20 mg Cephalexin Monohydrate (Keflex) 500 mg PO TID [facility] PRN Reason: Protocol Last Admin: 08/25/17 09:13 Dose: 500 mg Hydrochlorothiazide (Hydrodiuril) 25 mg PO QPM [facility] Last Admin: 08/24/17 17:14 Dose: 25 mg Insulin Human Regular (Humulin R) 0 units SC [facility] PRN Reason: Protocol Last Admin: 08/25/17 07:49 Dose: Not Given Lisinopril (Zestril) 20 mg PO QPM [facility] Last Admin: 08/24/17 17:15 Dose: 20 mg Metformin HCl (Glucophage) 1,000 mg PO BIDWM [facility] Last Admin: 08/22/17 08:00 Dose: 1,000 mg Montelukast Sodium (Singulair) 10 mg PO QPM [facility] Last Admin: 08/24/17 17:14 Dose: 10 mg Mupirocin (Bactroban Ointment) 1 applic TOP BID [facility] Last Admin: 08/25/17 11:46 Dose: 1 applic Nystatin (Nystop Topical Powder) 1 applic TOP TID [facility] Last Admin: 08/25/17 11:46 Dose: 1 applic Oxybutynin Chloride (Ditropan Tab) 5 mg PO QPM [facility] Last Admin: 08/24/17 17:15 Dose: 5 mg Sitagliptin Phosphate (Januvia) 100 mg PO DAILY [facility] Last Admin: 01/29/18 09:13 Dose: 100 mg Trimethoprim/Sulfamethoxazole (Bactrim Ds Tab) 1 tab PO Q12 [facility] PRN Reason: Protocol Last Admin: 08/25/17 09:13 Dose: 1 tab - Labs Labs: 08/25/17 05:50 08/25/17 05:50 - Constitutional Appears: Non-toxic - Head Exam Head Exam: NORMOCEPHALIC - Eye Exam Eye Exam: PERRL - ENT Exam ENT Exam: Mucous Membranes Dry - Neck Exam Neck Exam: absent: Lymphadenopathy - Respiratory Exam Respiratory Exam: Decreased Breath Sounds - Cardiovascular Exam Cardiovascular Exam: REGULAR RHYTHM - GI/Abdominal Exam GI & Abdominal Exam: Distended Assessment and Plan (1) Abscess Status: Acute (2) Dehydration Status: Acute (3) Hyperglycemia due to type 2 diabetes mellitus Status: Acute
--- NOTE | 2017-08-25 12:54 | CP.PCM.PCO ---
Assessment & Plan - Assessment and Plan (Free Text) Assessment: pt. doing well, denies sob, cp, fever, chills, n/v/d oob with PT pt. cleared for discharge to Home today by and As per - pt. may be d/c of keflex/ diflucan Rx for keflex 500 mg po q8 x 1 week, diflucan 100 mg po daily x 5 days, Bactroban to b/l affected areas pt. will f/u with wound care/ pmd in 1 week Rx for Cane and outpatient PT provided
--- NOTE | 2017-08-25 23:28 | CP.PCM.PN ---
Subjective - Date & Time of Evaluation Date of Evaluation: 08/24/17 Time of Evaluation: 10:30 - Subjective Subjective: Patient is doing well Noted to have peristently elevated WBC Has no fever. Has no chest pain Objective - Vital Signs/Intake and Output Vital Signs (last 24 hours): Temp Pulse Resp BP Pulse Ox 98.8 F 67 20 94/56 L 98 08/25/17 08:10 08/25/17 11:54 08/25/17 08:10 08/25/17 08:10 08/25/17 11:54 - Labs Labs: 08/25/17 05:50 08/25/17 05:50 - Head Exam Head Exam: NORMAL INSPECTION - Eye Exam Eye Exam: Normal appearance - ENT Exam ENT Exam: Mucous Membranes Moist - Respiratory Exam Respiratory Exam: Clear to Ausculation Bilateral, NORMAL BREATHING PATTERN - Cardiovascular Exam Cardiovascular Exam: REGULAR RHYTHM - GI/Abdominal Exam GI & Abdominal Exam: Normal Bowel Sounds - Neurological Exam Neurological Exam: Alert, CN II-XII Intact Assessment and Plan (1) Abscess Status: Acute (2) Hyperglycemia due to type 2 diabetes mellitus Status: Acute (3) Urinary tract bacterial infections Status: Acute - Assessment and Plan (Free Text) Plan: Con tmeds will switch to po meds cont tx recheck cbc Discharge plans
--- NOTE | 2017-08-25 23:37 | CP.PCM.DIS ---
Provider - Provider Date of Admission: 08/19/17 12:12 Attending physician: Harsh Cunningham MD Time Spent in preparation of Discharge (in minutes): 30 Diagnosis - Discharge Diagnosis (1) Abscess Status: Acute (2) Hyperglycemia due to type 2 diabetes mellitus Status: Acute (3) Urinary tract bacterial infections Status: Acute Hospital Course - Lab Results Lab Results: Micro Results 08/21/17 18:25 Groin Gram Stain - Final 08/21/17 18:25 Groin Wound Culture - Final Streptococcus anginosus group 08/18/17 15:07 Blood-Venous Blood Culture - Final NO GROWTH AFTER 5 DAYS 08/18/17 15:07 Blood-Venous Gram Stain - Final TEST NOT PERFORMED 08/18/17 03:30 Urine,Clean Catch Urine Culture - Final Escherichia Coli Most Recent Lab Values WBC 13.0 K/uL (4.8-10.8) H 08/25/17 05:50 RBC 3.63 Mil/uL (3.80-5.20) L 08/25/17 05:50 Hgb 9.8 g/dL (12.0-16.0) L 08/25/17 05:50 Hct 29.8 % (34.0-47.0) L 08/25/17 05:50 MCV 82.0 fl (81.0-99.0) 08/25/17 05:50 MCH 27.1 pg (27.0-31.0) 08/25/17 05:50 MCHC 33.0 g/dL (33.0-37.0) 08/25/17 05:50 RDW 15.9 % (11.5-14.5) H 08/25/17 05:50 Plt Count 319 K/uL (130-400) 08/25/17 05:50 MPV 6.7 fl (7.2-11.7) L 08/18/17 09:38 Neut % (Auto) 81.2 % (50.0-75.0) H 08/18/17 09:38 Lymph % (Auto) 11.1 % (20.0-40.0) L 08/18/17 09:38 Levy % (Auto) 6.3 % (0.0-10.0) 08/18/17 09:38 Eos % (Auto) 1.0 % (0.0-4.0) 08/18/17 09:38 Baso % (Auto) 0.4 % (0.0-2.0) 08/18/17 09:38 Neut # 12.8 K/uL (1.8-7.0) H 08/18/17 09:38 Lymph # 1.7 K/uL (1.0-4.3) 08/18/17 09:38 Levy # 1.0 K/uL (0.0-0.8) H 08/18/17 09:38 Eos # 0.2 K/uL (0.0-0.7) 08/18/17 09:38 Baso # 0.1 K/uL (0.0-0.2) 08/18/17 09:38 Retic Count 2.1 % (0.5-1.5) H 08/18/17 15:07 Sodium 140 mmol/l (132-148) 08/25/17 05:50 Potassium 3.7 MMOL/L (3.6-5.0) 08/25/17 05:50 Chloride 101 mmol/L (98-107) 08/25/17 05:50 Carbon Dioxide 28 mmol/L (22-30) 08/25/17 05:50 Anion Gap 15 (10-20) 08/25/17 05:50 BUN 10 mg/dl (7-17) 08/25/17 05:50 Creatinine 1.0 mg/dl (0.7-1.2) 08/25/17 05:50 Est GFR ( Amer) > 60 08/25/17 05:50 Est GFR (Non-Af Amer) 57 08/25/17 05:50 POC Glucose (mg/dL) 144 mg/dL (65-110) H 08/25/17 11:13 Random Glucose 113 mg/dL (65-105) H 08/25/17 05:50 Hemoglobin A1c 6.4 % (4.2-6.5) 08/18/17 18:30 Calcium 9.4 mg/dL (8.4-10.2) 08/25/17 05:50 Iron 19 ug/dL (37-170) L 08/18/17 15:07 TIBC 224 ug/dL (250-450) L 08/18/17 15:07 % Saturation 9 % (20-55) L 08/18/17 15:07 Ferritin 363.0 ng/Ml (11.1-264.0) H 08/18/17 15:07 Total Bilirubin 0.5 mg/dl (0.2-1.3) 08/25/17 05:50 AST 42 U/L (14-36) H D 08/25/17 05:50 ALT 42 U/L (9-52) 08/25/17 05:50 Alkaline Phosphatase 154 U/L (38-126) H D 08/25/17 05:50 Total Protein 8.2 G/DL (6.3-8.2) 08/25/17 05:50 Albumin 3.6 g/dL (3.5-5.0) 08/25/17 05:50 Globulin 4.6 gm/dL (2.2-3.9) H 08/25/17 05:50 Albumin/Globulin Ratio 0.8 (1.0-2.1) L 08/25/17 05:50 Triglycerides 63 mg/DL (0-149) 08/19/17 05:15 Cholesterol 121 mg/dL (0-199) 08/19/17 05:15 LDL Cholesterol Direct 53 mg/dL (0-129) 08/19/17 05:15 HDL Cholesterol 36 MG/DL (30-70) 08/19/17 05:15 Vitamin B12 379 pg/mL (239-931) 08/18/17 15:07 Urine Color Yellow (YELLOW) 08/18/17 23:19 Urine Clarity Clear (Clear) 08/18/17 23:19 Urine pH 6.0 (5.0-8.0) 08/18/17 23:19 Ur Specific [place] 1.006 (1.003-1.030) 08/18/17 23:19 Urine Protein Negative mg/dL (NEGATIVE) 08/18/17 23:19 Urine Glucose (UA) Neg mg/dL (Normal) 08/18/17 23:19 Urine Ketones Negative mg/dL (NEGATIVE) 08/18/17 23:19 Urine Blood Small (NEGATIVE) 08/18/17 23:19 Urine Nitrate Positive (NEGATIVE) H 08/18/17 23:19 Urine Bilirubin Negative (NEGATIVE) 08/18/17 23:19 Urine Urobilinogen 0.2-1.0 mg/dL (0.2-1.0) 08/18/17 23:19 Ur Leukocyte Esterase Small Uzlay/uL (Negative) 08/18/17 23:19 Urine RBC (Auto) < 1 /hpf (0-3) 08/18/17 23:19 Urine Microscopic WBC 7 /hpf (0-5) H 08/18/17 23:19 Ur Squamous Epith Cells 1 /hpf (0-5) 08/18/17 23:19 Urine Bacteria Occ (<OCC) H 08/18/17 23:19 Stool Occult Blood Negative (NEGATIVE) 08/18/17 12:43 Blood Type O POSITIVE 08/18/17 11:27 Blood Type Confirm O POSITIVE 08/18/17 21:21 Antibody Screen Negative 08/18/17 11:27 Crossmatch See Detail 08/18/17 11:27 BBK History Checked No verified bt 08/18/17 11:27 - Hospital Course Hospital Course: This is a 61 y/o female admitted for uncontrolled DM 2. multiple abscesses and UTI. She was started on IV antibiotics and was seen by Infectious disease consult. CBC was monitored and and medications were adjusted. She responded well to treatment and noted to have UTI E coli . She was sent home on po antibiotics. Discharge Exam - Head Exam Head Exam: NORMAL INSPECTION - Eye Exam Eye Exam: Normal appearance - Respiratory Exam Respiratory Exam: Clear to PA & Lateral - Cardiovascular Exam Cardiovascular Exam: REGULAR RHYTHM - GI/Abdominal Exam GI & Abdominal Exam: Normal Bowel Sounds - Neurological Exam Neurological exam: CN II-XII Intact Discharge Plan - Discharge Medications Prescriptions: Mupirocin 2% Ointment [Bactroban Ointment] 1 applic TOP BID #1 tube Fluconazole [Diflucan] 100 mg PO DAILY #5 tab SITagliptin [Januvia] 100 mg PO DAILY #30 tab Cephalexin [Keflex] 500 mg PO TID #21 cap Nystatin [Nystop Topical Powder] 1 applic TOP TID #1 bottle - Follow Up Plan Condition: STABLE Disposition: HOME/ ROUTINE Instructions: Cellulitis (DC), Iron Rich Diet (DC), Abscess (GEN), Anemia (DC) Additional Instructions: pt. cleared for discharge to Home today by and As per - pt. may be d/c of keflex/ diflucan Rx for keflex 500 mg po q8 x 1 week, diflucan 100 mg po daily x 5 days, Bactroban to b/l affected areas pt. will f/u with wound care/ pmd in 1 week Rx for Cane and outpatient PT provided follow up with your primary MD 7-10 days script for outpatient physical therapy given Referrals: Harsh Cunningham MD [Staff Provider] - Sudarshan Hayes MD [Staff Provider] - Romana Najera MD [Family Provider] -
== END 2017-08-25 14:42 | disposition home or self-care (01) | DRG 395 ==
LOC: H.ER 07:52 → H.ERHOLD 10:47 → H.TEL 13:04 → OBSVTOIN 08-19 12:12 → H.MEDSURG1 08-23 20:43
PROVIDERS: ADMIT Family Medicine; ATTEND Family Medicine
PROC: 30233N1 Transfusion of Nonautologous Red Blood Cells into Peripheral Vein, Percutaneous Approach (ICD-10-PCS; principal; 2017-08-18)
DX: D64.9 Anemia, unspecified (principal); E11.649 Type 2 diabetes mellitus with hypoglycemia without coma; E11.65 Type 2 diabetes mellitus with hyperglycemia; L02.211 Cutaneous abscess of abdominal wall; E86.0 Dehydration; J98.11 Atelectasis; N39.0 Urinary tract infection, site not specified; K62.5 Hemorrhage of anus and rectum; L03.311 Cellulitis of abdominal wall; N61.0 Mastitis without abscess; E66.01 Morbid (severe) obesity due to excess calories; E65 Localized adiposity; E78.00 Pure hypercholesterolemia, unspecified; G47.30 Sleep apnea, unspecified; I10 Essential (primary) hypertension; L73.2 Hidradenitis suppurativa; Z79.4 Long term (current) use of insulin; Z79.82 Long term (current) use of aspirin; Z79.899 Other long term (current) drug therapy; Z82.0 Family history of epilepsy and other diseases of the nervous system; Z82.3 Family history of stroke; Z90.710 Acquired absence of both cervix and uterus; Z68.34 Body mass index [BMI] 34.0-34.9, adult; R21 Rash and other nonspecific skin eruption; B96.20 Unspecified Escherichia coli [E. coli] as the cause of diseases classified elsewhere

== ENCOUNTER 2018-01-06 10:34 | Inpatient (IN) | payer OTHER ==
[2018-01-06] MEDS: Sodium Chloride 0.9% 1,000 ML IV SCH ×4 (11:25→18:29)
[2018-01-06 11:29] LABS: BASO # 0.1 K/uL (0.0-0.2); BASO % 0.6 % (0.0-2.0); EOS # 0.2 K/uL (0.0-0.7); HEMOGLOBIN 9.8 g/dL (12.0-16.0); LYMPH # 3.5 K/uL (1.0-4.3); LYMPH % 28.5 % (20.0-40.0); MEAN CELL VOLUME 87.4 fl (81.0-99.0); MEAN CORPUSCULAR HEMOGLOBIN 28.7 pg (27.0-31.0); MEAN CORPUSCULAR HGB CONC 32.8 g/dL (33.0-37.0); MEAN PLATELET VOLUME 7.6 fl (7.2-11.7); MONO # 0.9 K/uL (0.0-0.8); MONO % 7.2 % (0.0-10.0); NEUT # 7.7 K/uL (1.8-7.0); NEUT % 61.7 % (50.0-75.0); NRBC % 0.1 % (0.0-0.0); RBC 3.42 Mil/uL (3.80-5.20); RED CELL DISTRIBUTION WIDTH 13.6 % (11.5-14.5); WHITE BLOOD COUNT 12.4 K/uL (4.8-10.8)
--- NOTE | 2018-01-06 11:45 | ED PDOC ---
HPI: General Adult Time Seen by Provider: 01/06/18 11:04 Chief Complaint (Nursing): Lower Extremity Problem/Injury Chief Complaint (Provider): left leg pain/syncope History Per: Patient (62 y/o female h/o DM here with complaint of fall today in morning when trying to get out of bed to go to bathroom. Notes left leg "twisted" under her. notes patient was not responsive for '5'minutes. Denies any limb shaking but noted eyes rolling. Patient currently vomiting in ED. Noted to lose control of bowels at home. No fevers/chlils/cough/etc.) Past Medical History Reviewed: Historical Data, Nursing Documentation, Vital Signs Vital Signs: Last Vital Signs Temp 97.6 F 01/06/18 10:38 Pulse 65 01/06/18 10:38 Resp 20 01/06/18 10:38 BP 117/72 01/06/18 10:38 Pulse Ox 98 01/06/18 11:45 - Medical History PMH: Diabetes, Fractures (fibula 3-4 yrs ago), HTN, Hypercholesterolemia, Sleep Apnea Denies: Chronic Kidney Disease - Surgical History Surgical History: Hernia Repair - Family History Family History: States: Unknown Family Hx - Immunization History Hx Tetanus Toxoid Vaccination: No Hx Influenza Vaccination: No Hx Pneumococcal Vaccination: No - Home Medications Home Medications: Ambulatory Orders Medication Instructions Recorded Aspirin [Ecotrin] 81 mg PO QPM 08/18/17 Atorvastatin [Lipitor] 20 mg PO QPM 08/18/17 Ferrous Sulfate [Ferosul] 325 mg PO QPM 08/18/17 Insulin Glargine, Recombina 45 unit SC HS 08/18/17 [Lantus] Insulin Lispro [humALOG] 12 unit SC ACTID 08/18/17 Lisinopril/Hydrochlorothiazide 1 tab PO QPM 08/18/17 [Lisinopril-Hctz 20-25 mg Tab] Oxybutynin [Ditropan Tab] 5 mg PO QPM 08/18/17 amLODIPine [Norvasc] 5 mg PO QPM 08/18/17 - Allergies Allergies/Adverse Reactions: Allergies Allergy/AdvReac Type Severity Reaction Status Date / Time No Known Allergies Allergy Verified 01/06/18 10:41 Review of Systems ROS Statement: Except As Marked, All Systems Reviewed And Found Negative Physical Exam - Reviewed Nursing Documentation Reviewed: Yes Vital Signs Reviewed: Yes - Physical Exam Appears: Positive for: Well, Non-toxic, No Acute Distress Head Exam: Positive for: ATRAUMATIC, NORMAL INSPECTION, NORMOCEPHALIC Skin: Positive for: Normal Color, Warm, DRY Eye Exam: Positive for: EOMI, Normal appearance, PERRL ENT: Positive for: Normal ENT Inspection Neck: Positive for: Normal, Painless ROM Cardiovascular/Chest: Positive for: Regular Rate, Rhythm Respiratory: Positive for: CNT, Normal Breath Sounds Gastrointestinal/Abdominal: Positive for: Normal Exam, Soft Back: Positive for: Normal Inspection Extremity: Positive for: Normal ROM Neurologic/Psych: Positive for: Alert, Oriented - Laboratory Results Result Diagrams: 01/06/18 11:23 01/06/18 11:23 - ECG O2 Sat by Pulse Oximetry: 98 - Progress ED Course And Treament: xry of tib/fib: neg xry of knee: neg xry of femur: neg xry of hip: neg CT Head: nad NS 1 liter 500ml per hour toradol 15 mg iv x 1 dose d/w Dr. Cunningham Disposition - Clinical Impression Clinical Impression: Syncope, Left knee sprain - Patient ED Disposition Is Patient to be Admitted: Yes - Disposition Disposition Time: 13:05 Condition: FAIR - Pt Status Changed To: Hospital Disposition Of: Inpatient - Admit Certification Admit to Inpatient:: After my assessment, the patient will require hospitalization for at least two midnights. This is because of the severity of symptoms shown, intensity of services needed, and/or the medical risk in this patient being treated as an outpatient.
[2018-01-06 12:01] LABS: ALB/GLOB RATIO 0.8 (1.0-2.1); ALBUMIN 3.8 g/dL (3.5-5.0); ALT/SGPT 25 U/L (9-52); AST/SGOT 19 U/L (14-36); BLOOD UREA NITROGEN 30 mg/dl (7-17); CALCIUM 9.3 mg/dL (8.4-10.2); GFR AFRICAN-AMERICAN 55; GFR NON-AFRICAN AMERICAN 46
--- NOTE | 2018-01-06 12:04 | CT ---
PROCEDURE: CT HEAD WITHOUT CONTRAST. HISTORY: syncope COMPARISON: CT head dated 08/18/2017. TECHNIQUE: Axial computed tomography images were obtained through the head/brain without intravenous contrast. Radiation dose: Total exam DLP = 891.8 mGy-cm. This CT exam was performed using one or more of the following dose reduction techniques: Automated exposure control, adjustment of the mA and/or kV according to patient size, and/or use of iterative reconstruction technique. FINDINGS: HEMORRHAGE: No intracranial hemorrhage. BRAIN: No mass effect or edema. Mild atrophy. Mild chronic microvascular ischemic changes. VENTRICLES: Mildly prominent. No hydrocephalus. CALVARIUM: Unremarkable. PARANASAL SINUSES: Bilateral inferior maxillary sinus mucosal thickening. MASTOID AIR CELLS: Unremarkable as visualized. No inflammatory changes. OTHER FINDINGS: None. IMPRESSION: No acute intracranial pathology.
--- NOTE | 2018-01-06 12:51 | RAD ---
PROCEDURE: Left Hip X-ray Radiographs. HISTORY: left leg pain after fall COMPARISON: None. FINDINGS: BONES: No acute fracture. JOINTS: Normal. SOFT TISSUES: Normal. OTHER FINDINGS: Pelvic surgical clips. IMPRESSION: No demonstrated fracture or dislocation.
--- NOTE | 2018-01-06 12:53 | RAD ---
PROCEDURE: Left Knee Radiographs. HISTORY: Pain. COMPARISON: None. FINDINGS: BONES: No acute fracture. JOINTS: Mild tricompartmental narrowing. JOINT EFFUSION: None. OTHER FINDINGS: None. IMPRESSION: No demonstrated acute fracture or dislocation.
--- NOTE | 2018-01-06 12:53 | RAD ---
PROCEDURE: Left Femur Radiographs. HISTORY: injury COMPARISON: None. TECHNIQUE: AP and Lateral Radiographs of the left femur. FINDINGS: FEMUR: No acute fracture. SOFT TISSUES: Normal. OTHER FINDINGS: Left pelvic surgical clips. IMPRESSION: No demonstrated fracture or dislocation.
--- NOTE | 2018-01-06 12:54 | RAD ---
PROCEDURE: Radiographs of the left tibia and fibula. HISTORY: injury COMPARISON: None available. TECHNIQUE: Frontal and lateral views obtained. FINDINGS: BONES: No demonstrated acute fracture. JOINT SPACES: Unremarkable. OTHER FINDINGS: None. IMPRESSION: No demonstrated acute fracture or dislocation.
[2018-01-06] MEDS: Acetaminophen-Codeine 300/30 mg Tab PO PRN (18:24)
[2018-01-06] MEDS ORDERED: Patient's Own Med (Lisinopril/Hydrochlorothiazide [Lisinopril-Hctz 20-25 Mg Tab] 1 TAB) PO SCH (21:00)
[2018-01-06] MEDS ORDERED: INSULIN GLARGINE RECOMBINA SC SCH (22:00)
[2018-01-06] MEDS ORDERED: Insulin Detemir 100 Units/ml Inj SC SCH (22:00)
[2018-01-06] MEDS: Insulin Lispro (humaLOG) 100 Units/ml Inj SC SCH (22:05)
[2018-01-07] MEDS: Insulin Lispro (humaLOG) 100 Units/ml Inj SC SCH ×4 (06:30→21:44)
[2018-01-07] MEDS ORDERED: Pneumococcal 23-Valent Vaccine IM ONE (07:21)
[2018-01-07 07:34] VITALS: BMI 34.8
[2018-01-07 08:38] LABS: BASO # 0.1 K/uL (0.0-0.2); BASO % 0.4 % (0.0-2.0); EOS # 0.2 K/uL (0.0-0.7); EOS % 1.9 % (0.0-4.0); HEMOGLOBIN 8.9 g/dL (12.0-16.0); LYMPH # 1.2 K/uL (1.0-4.3); LYMPH % 10.1 % (20.0-40.0); MEAN CELL VOLUME 86.8 fl (81.0-99.0); MEAN CORPUSCULAR HEMOGLOBIN 29.1 pg (27.0-31.0); MEAN CORPUSCULAR HGB CONC 33.5 g/dL (33.0-37.0); MEAN PLATELET VOLUME 7.1 fl (7.2-11.7); MONO # 0.8 K/uL (0.0-0.8); NEUT # 9.6 K/uL (1.8-7.0); NEUT % 80.6 % (50.0-75.0); RBC 3.07 Mil/uL (3.80-5.20); RED CELL DISTRIBUTION WIDTH 13.8 % (11.5-14.5); WHITE BLOOD COUNT 11.9 K/uL (4.8-10.8)
[2018-01-07] MEDS: Betamethasone Dip 0.05% 15 GM TUBE TOP SCH ×2 (09:00→17:49)
[2018-01-07 09:05] LABS: ALB/GLOB RATIO 0.8 (1.0-2.1); ALBUMIN 3.5 g/dL (3.5-5.0); CALCIUM 8.9 mg/dL (8.4-10.2)
--- NOTE | 2018-01-07 11:34 | CARD ---
APPROVED REPORT EKG Measurement Heart [id number] <Conclusion> Normal sinus rhythm Possible Anterior infarct, age undetermined Abnormal ECG
--- NOTE | 2018-01-07 12:19 | CP.PCM.HP ---
History of Present Illness - History of Present Illness History of Present Illness: This is a 62 y/o female with hx of HTN DM 2 sleep apnea was admitted for an episode of syncope and seizure like episode while she was on her way to the bathroom early in the morning upon waking up. She claims that she suddenly felt " oozy" and fell. She was witnessed to have rolling eyeballs , unconscious for 5 secs and fecal incontinence. She denies having any seizure . She denies dizziness or headaches prior to episode. She now complains of pain and inability to move left knee. Also complains of vague lower back pain. Present on Admission - Present on Admission Any Indicators Present on Admission: No History of DVT/PE: No History of Uncontrolled Diabetes: No Urinary Catheter: No Decubitus Ulcer Present: No Past Patient History - Infectious Disease Hx of Infectious Diseases: None - Past Medical History & Family History Past Medical History?: Yes - Past Social History Smoking Status: Never Smoked - CARDIAC Hx Cardiac Disorders: Yes (HTN, HYPERLIPEDEMIA) - PULMONARY Hx Sleep Apnea: Yes - NEUROLOGICAL Hx Neurological Disorder: Yes (SYNCOPE) - HEENT Hx HEENT Problems: No - RENAL Hx Chronic Kidney Disease: No - ENDOCRINE/METABOLIC Hx Endocrine Disorders: Yes (DM) - HEMATOLOGICAL/ONCOLOGICAL Hx Blood Disorders: Yes Hx Blood Transfusions: No - INTEGUMENTARY Hx Dermatological Problems: Yes Hx Cellulitis: Yes Other/Comment: Under breasts rash/drainage - MUSCULOSKELETAL/RHEUMATOLOGICAL Hx Musculoskeletal Disorders: Yes (FRACTURES) Hx Falls: Yes - GASTROINTESTINAL Hx Gastrointestinal Disorders: Yes Other/Comment: abdominal surgery - GENITOURINARY/GYNECOLOGICAL Hx Genitourinary Disorders: No - PSYCHIATRIC Hx Psychophysiologic Disorder: No Hx Substance Use: No - SURGICAL HISTORY Hx Surgeries: Yes Hx Hysterectomy: Yes - ANESTHESIA Hx Anesthesia: Yes Hx Anesthesia Reactions: No Hx Malignant Hyperthermia: No Meds Allergies/Adverse Reactions: Allergies Allergy/AdvReac Type Severity Reaction Status Date / Time No Known Allergies Allergy Verified 01/06/18 10:41 Physical Exam - Head Exam Head Exam: NORMAL INSPECTION - Eye Exam Eye Exam: Normal appearance - ENT Exam ENT Exam: Mucous Membranes Moist - Respiratory Exam Respiratory Exam: Clear to Auscultation Bilateral - GI/Abdominal Exam GI & Abdominal Exam: Normal Bowel Sounds - Extremities Exam Additional comments: tenderness on the left knee - Neurological Exam Neurological exam: CN II-XII Intact, Oriented x3 - Psychiatric Exam Psychiatric exam: Normal Mood Results - Vital Signs Recent Vital Signs: Last Vital Signs Temp 98.2 F 01/07/18 12:07 Pulse 68 01/07/18 12:07 Resp 18 01/07/18 12:07 BP 101/66 01/07/18 12:07 Pulse Ox 98 01/07/18 12:07 - Labs Result Diagrams: 01/07/18 08:26 01/07/18 08:26 Labs: Laboratory Results - last 24 hr 01/06/18 01/06/18 01/07/18 16:51 21:22 05:30 WBC RBC Hgb Hct MCV MCH MCHC RDW Plt Count MPV Neut % (Auto) Lymph % (Auto) Dixon % (Auto) Eos % (Auto) Baso % (Auto) Neut # (Auto) Lymph # (Auto) Dixon # (Auto) Eos # (Auto) Baso # (Auto) Sodium Potassium Chloride Carbon Dioxide Anion Gap BUN Creatinine Est GFR ( Amer) Est GFR (Non-Af Amer) POC Glucose (mg/dL) 223 H 151 H 114 H Random Glucose Calcium Total Bilirubin AST ALT Alkaline Phosphatase Total Protein Albumin Globulin Albumin/Globulin Ratio 01/07/18 01/07/18 01/07/18 08:26 08:26 11:28 WBC 11.9 H RBC 3.07 L Hgb 8.9 L Hct 26.7 L MCV 86.8 MCH 29.1 MCHC 33.5 RDW 13.8 Plt Count 293 MPV 7.1 L Neut % (Auto) 80.6 H Lymph % (Auto) 10.1 L Dixon % (Auto) 7.0 Eos % (Auto) 1.9 Baso % (Auto) 0.4 Neut # (Auto) 9.6 H Lymph # (Auto) 1.2 Dixon # (Auto) 0.8 Eos # (Auto) 0.2 Baso # (Auto) 0.1 Sodium 139 Potassium 4.3 Chloride 106 Carbon Dioxide 21 L Anion Gap 16 BUN 29 H Creatinine 1.2 Est GFR ( Amer) 55 Est GFR (Non-Af Amer) 46 POC Glucose (mg/dL) 181 H Random Glucose 124 H Calcium 8.9 Total Bilirubin 0.6 AST 26 ALT 20 Alkaline Phosphatase 97 Total Protein 7.9 Albumin 3.5 Globulin 4.4 H Albumin/Globulin Ratio 0.8 L Assessment & Plan (1) Syncope Status: Acute (2) Seizure Status: Acute (3) Hypotension Status: Acute (4) Anemia Status: Acute (5) CKD (chronic kidney disease) Status: Acute (6) Diabetes mellitus type 2 in obese Status: Acute (7) Sleep apnea Status: Acute - Assessment and Plan (Free Text) Plan: Plan hold BP meds monitor cbc EEG Neuro eval MRI of the left knee Ortho eval Phys therapy telemetry troponin ekg CPK a1c lipid stool occult blood
--- NOTE | 2018-01-07 12:34 | CP.PCM.PN ---
Subjective - Date & Time of Evaluation Date of Evaluation: 01/07/18 Time of Evaluation: 12:30 - Subjective Subjective: Patient continues to have pain on left knee. Noted to have low Hgb Noted low BP On lisinopril Objective - Vital Signs/Intake and Output Vital Signs (last 24 hours): Temp Pulse Resp BP Pulse Ox 98.2 F 68 18 101/66 98 01/07/18 12:07 01/07/18 12:07 01/07/18 12:07 01/07/18 12:07 01/07/18 12:07 - Medications Medications: Current Medications Acetaminophen/Codeine Phosphate (Tylenol/Codeine 300 Mg/30 Mg) 1 tab PO QID PRN PRN Reason: severe pain(8-10) Last Admin: 01/06/18 18:24 Dose: 1 tab Aspirin (Ecotrin) 81 mg PO QPM [facility] Last Admin: 01/06/18 21:51 Dose: 81 mg Atorvastatin Calcium (Lipitor) 20 mg PO QPM [facility] Last Admin: 01/06/18 20:05 Dose: 20 mg Betamethasone Dipropionate (Diprolene) 1 applic TOP BID [facility] Clotrimazole (Lotrimin 1% Cream) 1 applic TOP BID [facility] Cyclobenzaprine HCl (Flexeril) 10 mg PO HS PRN PRN Reason: Muscle spasm Ferrous Sulfate (Feosol) 325 mg PO QPM [facility] Last Admin: 01/06/18 21:52 Dose: 325 mg Insulin Detemir (Levemir) 45 units SC HS [facility] Last Admin: 01/06/18 22:24 Dose: 45 unit Insulin Human Lispro (Humalog) 0 units SC [facility] PRN Reason: Protocol Last Admin: 01/07/18 06:30 Dose: Not Given Lidocaine (Lidoderm) 1 ea TD DAILY [facility] Oxybutynin Chloride (Ditropan Tab) 5 mg PO QPM [facility] Last Admin: 01/06/18 20:04 Dose: 5 mg - Labs Labs: 01/07/18 08:26 01/07/18 08:26 - Head Exam Head Exam: NORMAL INSPECTION - Eye Exam Eye Exam: Normal appearance - ENT Exam ENT Exam: Mucous Membranes Moist - Respiratory Exam Respiratory Exam: Clear to Ausculation Bilateral - Cardiovascular Exam Cardiovascular Exam: REGULAR RHYTHM - GI/Abdominal Exam GI & Abdominal Exam: Normal Bowel Sounds - Neurological Exam Neurological Exam: Awake, Oriented x3 Assessment and Plan (1) Syncope Status: Acute (2) Seizure Status: Acute (3) Hypotension Status: Acute (4) Anemia Status: Acute (5) CKD (chronic kidney disease) Status: Acute (6) Diabetes mellitus type 2 in obese Status: Acute (7) Sleep apnea Status: Acute - Assessment and Plan (Free Text) Plan: will start po metformin and januvia and glipizide hold zesril DC insulin MRI of the left knee follow up eeg Neuro Ortho
[2018-01-07] MEDS: GlipiZIDE 5 mg SR Tab PO SCH (17:51)
[2018-01-07] MEDS: Acetaminophen-Codeine 300/30 mg Tab PO PRN (22:22)
[2018-01-08] MEDS: Insulin Lispro (humaLOG) 100 Units/ml Inj SC SCH ×4 (06:31→22:03)
[2018-01-08 07:04] LABS: BASO % 0.3 % (0.0-2.0); EOS # 0.3 K/uL (0.0-0.7); EOS % 2.7 % (0.0-4.0); HEMOGLOBIN 8.8 g/dL (12.0-16.0); LYMPH # 1.9 K/uL (1.0-4.3); LYMPH % 18.3 % (20.0-40.0); MEAN CELL VOLUME 87.5 fl (81.0-99.0); MEAN CORPUSCULAR HEMOGLOBIN 28.9 pg (27.0-31.0); MEAN PLATELET VOLUME 7.1 fl (7.2-11.7); MONO % 9.5 % (0.0-10.0); NEUT # 7.2 K/uL (1.8-7.0); NEUT % 69.2 % (50.0-75.0); RBC 3.04 Mil/uL (3.80-5.20); RED CELL DISTRIBUTION WIDTH 13.7 % (11.5-14.5); WHITE BLOOD COUNT 10.4 K/uL (4.8-10.8)
--- NOTE | 2018-01-08 07:19 | CP.PCM.CON ---
History of Present Illness - History of Present Illness History of Present Illness: 62 yo F with pmhx of htn and DM presents with left knee pain and swelling after a fall 2 days ago. Pt reports fall and twisting injury to left leg. She denies any previous trauma or pain to left knee prior to fall. She reports she was unable to ambulate on LLE after fall and is currently unable to ambulate due to left knee pain. She usually ambulates independently w/o cane or any assistive device. She reports left knee pain, swelling and painful and limited ROM of left knee. She denies any paresthesia or motor weakness to LLE. Orthopaedics consulted for further eval and tx of left knee. Past Patient History - Infectious Disease Hx of Infectious Diseases: None - Past Medical History & Family History Past Medical History?: Yes - Past Social History Smoking Status: Never Smoked - CARDIAC Hx Cardiac Disorders: Yes (HTN, HYPERLIPEDEMIA) - PULMONARY Hx Sleep Apnea: Yes - NEUROLOGICAL Hx Neurological Disorder: Yes (SYNCOPE) - HEENT Hx HEENT Problems: No - RENAL Hx Chronic Kidney Disease: No - ENDOCRINE/METABOLIC Hx Endocrine Disorders: Yes (DM) - HEMATOLOGICAL/ONCOLOGICAL Hx Blood Disorders: Yes Hx Blood Transfusions: No - INTEGUMENTARY Hx Dermatological Problems: Yes Hx Cellulitis: Yes Other/Comment: Under breasts rash/drainage - MUSCULOSKELETAL/RHEUMATOLOGICAL Hx Musculoskeletal Disorders: Yes (FRACTURES) Hx Falls: Yes - GASTROINTESTINAL Hx Gastrointestinal Disorders: Yes Other/Comment: abdominal surgery - GENITOURINARY/GYNECOLOGICAL Hx Genitourinary Disorders: No - PSYCHIATRIC Hx Psychophysiologic Disorder: No Hx Substance Use: No - SURGICAL HISTORY Hx Surgeries: Yes Hx Hysterectomy: Yes - ANESTHESIA Hx Anesthesia: Yes Hx Anesthesia Reactions: No Hx Malignant Hyperthermia: No Meds Allergies/Adverse Reactions: Allergies Allergy/AdvReac Type Severity Reaction Status Date / Time No Known Allergies Allergy Verified 01/06/18 10:41 - Medications Medications: Current Medications Acetaminophen/Codeine Phosphate (Tylenol/Codeine 300 Mg/30 Mg) 1 tab PO QID PRN PRN Reason: severe pain(8-10) Last Admin: 01/07/18 22:22 Dose: 1 tab Aspirin (Ecotrin) 81 mg PO QPM [facility] Last Admin: 01/07/18 17:53 Dose: 81 mg Atorvastatin Calcium (Lipitor) 20 mg PO QPM [facility] Last Admin: 01/07/18 17:50 Dose: 20 mg Betamethasone Dipropionate (Diprolene) 1 applic TOP BID [facility] Last Admin: 01/07/18 17:49 Dose: 1 applic Clotrimazole (Lotrimin 1% Cream) 1 applic TOP BID [facility] Last Admin: 01/07/18 17:49 Dose: 1 applic Cyclobenzaprine HCl (Flexeril) 10 mg PO HS PRN PRN Reason: Muscle spasm Ferrous Sulfate (Feosol) 325 mg PO QPM [facility] Last Admin: 01/07/18 17:53 Dose: 325 mg Glipizide (Glucotrol Xl) 5 mg PO BRK [facility] Last Admin: 01/07/18 17:51 Dose: Not Given Insulin Human Lispro (Humalog) 0 units SC [facility] PRN Reason: Protocol Last Admin: 01/08/18 06:31 Dose: Not Given Lidocaine (Lidoderm) 1 ea TD DAILY [facility] Metformin HCl (Glucophage) 500 mg PO BIDWM [facility] Last Admin: 01/07/18 17:51 Dose: 500 mg Oxybutynin Chloride (Ditropan Tab) 5 mg PO QPM [facility] Last Admin: 01/07/18 17:52 Dose: 5 mg Sitagliptin Phosphate (Januvia) 100 mg PO DAILY [facility] Last Admin: 01/07/18 17:51 Dose: Not Given Physical Exam - Constitutional Appears: Well, No Acute Distress - Respiratory Exam Additional comments: currently on O2 - Extremities Exam Additional comments: Left knee: Effusion 2+ no erythema, not warm to touch exam limited due to pt pain level, ROM limited due to pain Pt unable to straight leg raise due to pain Calves soft and nontender b/l N/V intact distally Distal pulses wnl Results - Vital Signs Recent Vital Signs: Last Vital Signs Temp 97.8 F 01/08/18 04:36 Pulse 77 01/08/18 05:11 Resp 18 01/08/18 04:36 BP 107/67 01/08/18 04:36 Pulse Ox 96 01/08/18 04:36 - Labs Result Diagrams: 01/08/18 06:30 01/08/18 06:30 Labs: Laboratory Results - last 24 hr 01/07/18 01/07/18 01/07/18 08:26 08:26 11:28 WBC 11.9 H RBC 3.07 L Hgb 8.9 L Hct 26.7 L MCV 86.8 MCH 29.1 MCHC 33.5 RDW 13.8 Plt Count 293 MPV 7.1 L Neut % (Auto) 80.6 H Lymph % (Auto) 10.1 L Stokes % (Auto) 7.0 Eos % (Auto) 1.9 Baso % (Auto) 0.4 Neut # (Auto) 9.6 H Lymph # (Auto) 1.2 Stokes # (Auto) 0.8 Eos # (Auto) 0.2 Baso # (Auto) 0.1 Sodium 139 Potassium 4.3 Chloride 106 Carbon Dioxide 21 L Anion Gap 16 BUN 29 H Creatinine 1.2 Est GFR ( Amer) 55 Est GFR (Non-Af Amer) 46 POC Glucose (mg/dL) 181 H Random Glucose 124 H Calcium 8.9 Total Bilirubin 0.6 AST 26 ALT 20 Alkaline Phosphatase 97 Total Protein 7.9 Albumin 3.5 Globulin 4.4 H Albumin/Globulin Ratio 0.8 L 01/07/18 01/07/18 01/08/18 16:04 21:20 05:21 WBC RBC Hgb Hct MCV MCH MCHC RDW Plt Count MPV Neut % (Auto) Lymph % (Auto) Stokes % (Auto) Eos % (Auto) Baso % (Auto) Neut # (Auto) Lymph # (Auto) Stokes # (Auto) Eos # (Auto) Baso # (Auto) Sodium Potassium Chloride Carbon Dioxide Anion Gap BUN Creatinine Est GFR ( Amer) Est GFR (Non-Af Amer) POC Glucose (mg/dL) 102 104 103 Random Glucose Calcium Total Bilirubin AST ALT Alkaline Phosphatase Total Protein Albumin Globulin Albumin/Globulin Ratio 01/08/18 06:30 WBC 10.4 RBC 3.04 L Hgb 8.8 L Hct 26.6 L MCV 87.5 MCH 28.9 MCHC 33.0 RDW 13.7 Plt Count 282 MPV 7.1 L Neut % (Auto) 69.2 Lymph % (Auto) 18.3 L Stokes % (Auto) 9.5 Eos % (Auto) 2.7 Baso % (Auto) 0.3 Neut # (Auto) 7.2 H Lymph # (Auto) 1.9 Stokes # (Auto) 1.0 H Eos # (Auto) 0.3 Baso # (Auto) 0.0 Sodium Potassium Chloride Carbon Dioxide Anion Gap BUN Creatinine Est GFR ( Amer) Est GFR (Non-Af Amer) POC Glucose (mg/dL) Random Glucose Calcium Total Bilirubin AST ALT Alkaline Phosphatase Total Protein Albumin Globulin Albumin/Globulin Ratio Assessment & Plan - Assessment and Plan (Free Text) Assessment: 62 yo F with pmhx of htn and DM presents with left knee pain and effusion secondary to left knee medial meniscus tear and Partial vs. full ACL tear Plan: Xrays of left knee are neg for any acute fx/dislocations MRI left knee w/o contrast reveals medial meniscus tear and partial vs full ACL tear (not visualized well on MRI), joint effusion Recommend : Pain Control Left Knee immobilizer, WBAT in immobilizer Elevate LLE and apply ice prn Pt can follow up in office as outpt for further eval and tx Discussed with Dr. Fernandes :
[2018-01-08 07:31] LABS: LDL CHOLESTEROL 51 mg/dL (0-129)
[2018-01-08 07:33] LABS: ALB/GLOB RATIO 0.8 (1.0-2.1); ALBUMIN 3.5 g/dL (3.5-5.0); ALT/SGPT 27 U/L (9-52); AST/SGOT 24 U/L (14-36); BLOOD UREA NITROGEN 19 mg/dl (7-17); CALCIUM 9.1 mg/dL (8.4-10.2); GFR AFRICAN-AMERICAN > 60; GFR NON-AFRICAN AMERICAN 56; HDL CHOLESTEROL 38 MG/DL (30-70)
--- NOTE | 2018-01-08 08:47 | CON ---
DATE: 01/07/2018 AGE: A 62-year-old woman. CHIEF COMPLAINT: Syncope. HISTORY OF PRESENT ILLNESS: A 62-year-old woman with history of type-2 diabetes mellitus, history of fracture of her fibula three to four years ago, hypertension, hypercholesterolemia, sleep apnea, who was trying to get out of bed to go to the bathroom when she twisted her left leg as well as had passed out for less than five minutes and the noticed her eyes were rolling and some mild loss of control of her bowel. She had low systolic and diastolic blood pressures. Likely, her symptoms are mostly likely of a syncopal convulsion rather than a seizure. EEG preliminary shows no epileptiform activity official report. CAT scan of the head showed no acute intracranial abnormality. PAST MEDICAL HISTORY: As above. PAST SURGICAL HISTORY: Hernia repair. SOCIAL HISTORY: No illicit drug use, smoking or EtOH abuse. REVIEW OF SYSTEMS: A 14-point review of systems is negative except in the HPI. FAMILY HISTORY: Noncontributory. ALLERGIES: NO KNOWN DRUG ALLERGIES. MEDICATIONS: Reviewed by nurse reconciliation sheet. LABORATORY DATA: Sodium is 139, potassium 4.3, chloride 106, carbon dioxide 21, BUN of 29, creatinine 1.2, and random glucose 124. Hemoglobin is 8.9, hematocrit is 26.7, and platelet count 293. PHYSICAL EXAMINATION: VITAL SIGNS: Temperature of 98.3, pulse rate 62, blood pressure 102/64, respiratory rate 20, and oxygen saturation 96% by room air. GENERAL: The patient is sitting up in bed, in no acute distress. HEENT: Atraumatic and normocephalic. PERRLA. Extraocular muscles are intact. ABDOMEN: Soft, nontender, and nondistended. Bowel sounds present. EXTREMITIES: No clubbing. No cyanosis. Peripheral pulses 2+ bilaterally. NEUROLOGIC: The patient is alert and oriented to person, place, month, and year. Speech is fluent without errors. Cranial nerves II through XII are intact. Motor exam: Moves all extremities equally. Toes are downgoing bilaterally. No pronator drift seen. Sensory exam: Decreased light touch and pinprick up to the calves bilaterally. Decreased vibration at the toes. DTRs are 2+ throughout. Coordination: Xuvinz-sy-ibhh intact. No dysmetria is noted. Gait is deferred for now. DTRs are 2+ on both knees and absent at the ankles. ASSESSMENT AND PLAN: This is a 62-year-old woman with history of hypertension, type-2 diabetes mellitus, hypercholesterolemia, sleep apnea, history of fracture of the fibula about few years ago, who was trying to get out of her bed when she twisted her left leg and had passed out. She had low systolic and diastolic blood pressures. CAT scan of the head showed no acute intracranial abnormality. Preliminary report of the electroencephalogram showed no epileptiform activity. At this time, mostly likely she had a syncopal convulsion from cerebral hypoperfusion to the brain from low systolic and diastolic blood pressures, unlikely a true focal seizure. RECOMMENDATIONS: At this time, we will recommend, 1. No antiepileptics for now. 2. Adequate hydration throughout the day. 3. Monitor hematocrit and hemoglobin and she has underlying anemia. 4. PT and OT for assessment and orthostatic vital signs once she is clinically stable. Taj Sarkar MD
[2018-01-08] MEDS: Betamethasone Dip 0.05% 15 GM TUBE TOP SCH ×3 (10:24→18:13)
[2018-01-08] MEDS: Lidocaine 5% Patch TD SCH (10:26)
[2018-01-08] MEDS: Acetaminophen-Codeine 300/30 mg Tab PO PRN (12:22)
[2018-01-08] MEDS: GlipiZIDE 5 mg SR Tab PO SCH (12:24)
[2018-01-08] MEDS ORDERED: Oxycodone/Acetaminophen 5/325 mg Tab PO PRN (13:53)
--- NOTE | 2018-01-08 13:57 | CP.PCM.PN ---
Subjective - Date & Time of Evaluation Date of Evaluation: 01/08/18 Time of Evaluation: 12:00 - Subjective Subjective: Patient seen and examined this morning at bedside w/ Dr. Cunningham. There are no acute events overnight, NAD. The patient continues to report severe left knee pain and swelling. Patient also complaining of right ankle pain. Patient had 1 episode of non-bilious/non-bloody vomit this morning, but tolerating PO now. Patient denies headaches, chest pain, SOB, abdominal pain, diarrhea, dysuria, or fever. Objective - Vital Signs/Intake and Output Vital Signs (last 24 hours): Temp Pulse Resp BP Pulse Ox 98.2 F 71 18 114/69 97 01/08/18 11:56 01/08/18 11:56 01/08/18 11:56 01/08/18 11:56 01/08/18 11:56 - Medications Medications: Current Medications Acetaminophen/Codeine Phosphate (Tylenol/Codeine 300 Mg/30 Mg) 1 tab PO QID PRN PRN Reason: severe pain(8-10) Last Admin: 01/08/18 12:22 Dose: 1 tab Aspirin (Ecotrin) 81 mg PO QPM [facility] Last Admin: 01/07/18 17:53 Dose: 81 mg Atorvastatin Calcium (Lipitor) 20 mg PO QPM [facility] Last Admin: 01/07/18 17:50 Dose: 20 mg Betamethasone Dipropionate (Diprolene) 1 applic TOP BID [facility] Last Admin: 01/08/18 10:24 Dose: 1 applic Clotrimazole (Lotrimin 1% Cream) 1 applic TOP BID [facility] Last Admin: 01/08/18 10:19 Dose: 1 applic Cyclobenzaprine HCl (Flexeril) 10 mg PO HS PRN PRN Reason: Muscle spasm Ferrous Sulfate (Feosol) 325 mg PO QPM [facility] Last Admin: 01/07/18 17:53 Dose: 325 mg Glipizide (Glucotrol Xl) 5 mg PO BRK [facility] Last Admin: 01/08/18 12:24 Dose: 5 mg Ibuprofen (Motrin Tab) 600 mg PO Q6 PRN PRN Reason: Pain, moderate (4-7) Last Admin: 01/08/18 13:11 Dose: 600 mg Insulin Human Lispro (Humalog) 0 units SC [facility] PRN Reason: Protocol Last Admin: 01/08/18 12:02 Dose: Not Given Lidocaine (Lidoderm) 1 ea TD DAILY [facility] Last Admin: 01/08/18 10:26 Dose: 1 ea Metformin HCl (Glucophage) 500 mg PO BIDWM [facility] Last Admin: 01/08/18 12:23 Dose: 500 mg Ondansetron HCl (Zofran Odt) 4 mg PO Q8H PRN PRN Reason: Nausea/Vomiting Last Admin: 01/08/18 10:30 Dose: 4 mg Oxybutynin Chloride (Ditropan Tab) 5 mg PO QPM [facility] Last Admin: 01/07/18 17:52 Dose: 5 mg Oxycodone/Acetaminophen (Percocet 5/325 Mg Tab) 1 tab PO Q4 PRN PRN Reason: Pain, severe (8-10) Stop: 01/11/18 13:54 Sitagliptin Phosphate (Januvia) 100 mg PO DAILY [facility] Last Admin: 01/08/18 12:24 Dose: 100 mg - Labs Labs: 01/08/18 06:30 01/08/18 06:30 - Constitutional Appears: Non-toxic, No Acute Distress - Head Exam Head Exam: ATRAUMATIC, NORMAL INSPECTION, NORMOCEPHALIC - Eye Exam Eye Exam: Normal appearance - ENT Exam ENT Exam: Mucous Membranes Moist - Neck Exam Neck Exam: Full ROM. absent: Tenderness - Respiratory Exam Respiratory Exam: Clear to Ausculation Bilateral. absent: Accessory Muscle Use , Decreased Breath Sounds, Rales, Rhonchi, Wheezes, Respiratory Distress - Cardiovascular Exam Cardiovascular Exam: REGULAR RHYTHM. absent: Tachycardia - GI/Abdominal Exam GI & Abdominal Exam: Soft, Normal Bowel Sounds. absent: Distended, Tenderness - Extremities Exam Extremities Exam: Joint Swelling, Tenderness. absent: Calf Tenderness Additional comments: left edema, tenderness right ankle edema, tenderness - Neurological Exam Neurological Exam: Alert, Awake, Oriented x3 - Skin Skin Exam: Dry, Intact, Normal Color, Warm Assessment and Plan (1) ACL tear Status: Acute (2) Right ankle pain Status: Acute (3) Diabetes mellitus type 2 in obese Status: Chronic (4) Iron deficiency anemia Status: Chronic (5) HTN (hypertension) Status: Chronic - Assessment and Plan (Free Text) Plan: c/w present management neurology recommendations appreciated orthopaedic recommendations appreciated MRI knee: left ACL tear f/u XR right ankle pain management: percocet 1 tab Q4h prn for severe pain f/u CBC, BMP in AM prophylactic measures: DVT lovenox 40 mg SC daily monitor for acute changes
[2018-01-08] MEDS ORDERED: Dextrose 50% SYRINGE Inj (50 ml) IV PRN (14:10)
[2018-01-08] MEDS ORDERED: Glucagon Recombinant 1 mg Inj IM PRN (14:10)
--- NOTE | 2018-01-08 15:05 | RAD ---
PROCEDURE: Right Ankle Radiographs. HISTORY: ankle tenderness COMPARISON: None FINDINGS: BONES: Normal. No fracture. JOINTS: Normal. No osteoarthritis. Ankle mortise maintained. Talar dome intact SOFT TISSUES: Normal. OTHER FINDINGS: None. IMPRESSION: Normal right ankle radiographs.
--- NOTE | 2018-01-08 15:39 | MRI ---
MRI left knee History: Knee pain and weakness. Comparison: None available. Technique: Multi-echo multiplanar sequences were performed through the left knee without the use of intravenous contrast. Findings: Complete rupture of the anterior cruciate ligament. Moderate grade sprain of the proximal attachment of the posterior cruciate ligament. Prominent globular increased signal seen within the posterior horn of the medial meniscus suggestive for intrasubstance degeneration and or intrasubstance partial tearing. Adjacent high-grade strain at the posterior meniscocapsular junction. Fraying with increased signal noted at the junction of the posterior root and horn of the lateral meniscus which may represent possible small tearing. Additional increased signal noted at the level of the anterior horn of the lateral meniscus suggestive for intrasubstance degeneration and or intrasubstance partial tearing. Partial tearing and or high grade strain at the proximal and midportion of the medial collateral ligament. Lateral collateral ligament complex structures appear preserved. Quadriceps tendon is preserved. Mild proximal patellar tendinopathy. Moderate grade strain and or partial tearing of the medial patellar retinaculum posteriorly. Moderate grade strain of the lateral patellar retinaculum. Mild cartilage thinning and loss overlying the medial patellar facet. Mild cartilage thinning and loss involving the anterior to midportion of the medial compartment of the femorotibial joint space. Large suprapatellar joint effusion with associated hemarthrosis. Small posterior Hardin's cyst. Prominent patchy decreased T1 signal and increased STIR signal noted within the posteromedial and posterolateral proximal tibia at the articular surface suggestive for bone bruising and or subchondral osseous injury. Clinical correlation. Heterogeneity of the visualized marrow with patchy decreased T1 signal suggestive for hematopoietic marrow reconversion. Impression: 1. Complete rupture of the anterior cruciate ligament. 2. Moderate grade sprain of the proximal attachment of the posterior cruciate ligament. 3. Prominent globular increased signal seen within the posterior horn of the medial meniscus suggestive for intrasubstance degeneration and or intrasubstance partial tearing. Adjacent high-grade strain at the posterior meniscocapsular junction. 4. Fraying with increased signal noted at the junction of the posterior root and horn of the lateral meniscus which may represent possible small tearing. Additional increased signal noted at the level of the anterior horn of the lateral meniscus suggestive for intrasubstance degeneration and or intrasubstance partial tearing. 5. Partial tearing and or high grade strain at the proximal and midportion of the medial collateral ligament. 6. Mild proximal patellar tendinopathy. 7. Moderate grade strain and or partial tearing of the medial patellar retinaculum posteriorly. 8. Moderate grade strain of the lateral patellar retinaculum. 9. Mild cartilage thinning and loss overlying the medial patellar facet. Mild cartilage thinning and loss involving the anterior to midportion of the medial compartment of the femorotibial joint space. 10. Large suprapatellar joint effusion with associated hemarthrosis. 11. Small posterior Hardin's cyst. 12. Prominent patchy decreased T1 signal and increased STIR signal noted within the posteromedial and posterolateral proximal tibia at the articular surface suggestive for bone bruising and or subchondral osseous injury. Clinical correlation. 13. Heterogeneity of the visualized marrow with patchy decreased T1 signal suggestive for hematopoietic marrow reconversion.
[2018-01-09 05:44] LABS: HEMOGLOBIN 9.2 g/dL (12.0-16.0); MEAN CELL VOLUME 86.7 fl (81.0-99.0); MEAN CORPUSCULAR HEMOGLOBIN 28.9 pg (27.0-31.0); MEAN CORPUSCULAR HGB CONC 33.3 g/dL (33.0-37.0); RBC 3.2 Mil/uL (3.80-5.20); RED CELL DISTRIBUTION WIDTH 13.6 % (11.5-14.5)
[2018-01-09 06:32] LABS: BLOOD UREA NITROGEN 23 mg/dl (7-17); CALCIUM 9.4 mg/dL (8.4-10.2); GFR AFRICAN-AMERICAN > 60; GFR NON-AFRICAN AMERICAN 56
[2018-01-09] MEDS: Insulin Lispro (humaLOG) 100 Units/ml Inj SC SCH ×4 (06:35→22:00)
[2018-01-09] MEDS: Acetaminophen-Codeine 300/30 mg Tab PO PRN (07:11)
[2018-01-09] MEDS: Enoxaparin 40 mg Syringe SC SCH ×2 (09:09→09:16)
[2018-01-09] MEDS: Lidocaine 5% Patch TD SCH (09:11)
[2018-01-09] MEDS: GlipiZIDE 5 mg SR Tab PO SCH (09:12)
[2018-01-09] MEDS: Betamethasone Dip 0.05% 15 GM TUBE TOP SCH ×2 (09:12→17:01)
--- NOTE | 2018-01-09 10:42 | PQF GENQUE ---
Dr. Cunningham, The attending physician is required to clarify conflicting documentation in the medical record. The following documentation is noted in the medical record: Diagnosis 1: Seizure Acute Documented by: Attending Location : Progress notes Diagnosis 2: Syncopal Convulsion from cerebral hypoperfusion to the brain from low systolic and diastolic blood pressures, unlikely a true focal seizure Documented by: Neurologist Location: 01/07: Draft consult note 01/06: V/S:117/72->115/57->115/57->102/65->100/63 H and P: dxs. include: Hypotension: hold BP meds This form is a permanent part of the medical record Clarification of your documentation is requested to better reflect the severity of illness and intensity of treatment of your patient. Indicators present [] Specify: [] [] Specify: [] [] Specify: [] [] Specify: [] Location in the medical record that reflects the above clinical findings: [] Treatment Provided: [] PHYSICIAN'S RESPONSE Based on your medical judgment of the clinical indicators outlined above please clarify the following: [] Practitioner response [] If unable to determine, please check the box, sign and date. Present On Admission (POA) Indicator: [] Present at the time of admission [] Not present at the time of admission [] Clinically Undetermined In responding to this query, please exercise your independent professional judgment. The fact that a question is asked does not imply that any particular answer is desired or expected. Thank you for your clarification on this documentation. If you have any questions please call. * Thank you, Clara Sharp RN ext. #[phone] MTDD
--- NOTE | 2018-01-09 10:52 | PQF GENQUE ---
Dr. Cunningham, Please clarify the stage of the chronic kidney disease: if known Stage 1 Stage 2 (mild) Stage 3 (moderate) Stage 4 (severe) Stage 5 Other (please specify) Clinically unable to determine Unknown BUN:30->29->19->.23 Creatinine:1.2->1.2-.>1.0->1.0 Est GFR ( Amer/Non-Af Amer):55/46->55/46-- >60/56-->60/56 H and P: dxs, include: CKD This form is a permanent part of the medical record Clarification of your documentation is requested to better reflect the severity of illness and intensity of treatment of your patient. Indicators present [] Specify: [] [] Specify: [] [] Specify: [] [] Specify: [] Location in the medical record that reflects the above clinical findings: [] Treatment Provided: [] PHYSICIAN'S RESPONSE Based on your medical judgment of the clinical indicators outlined above please clarify the following: [] Practitioner response [] If unable to determine, please check the box, sign and date. Present On Admission (POA) Indicator: [] Present at the time of admission [] Not present at the time of admission [] Clinically Undetermined In responding to this query, please exercise your independent professional judgment. The fact that a question is asked does not imply that any particular answer is desired or expected. Thank you for your clarification on this documentation. If you have any questions please call. * Thank you, Clara Sharp RN ext. #[phone] MTDD
--- NOTE | 2018-01-09 12:58 | CP.PCM.PN ---
Subjective - Date & Time of Evaluation Date of Evaluation: 01/09/18 Time of Evaluation: 11:15 - Subjective Subjective: Patient seen and examined this morning at bedside w/ Dr. Cunningham. There are no acute events overnight, NAD. The patient continues to report left knee pain and swelling w/ some relief w/ medication. Patient also complaining of right ankle pain aslo relieved w/ medication. Patient reports vomiting this morning similar to yesterday. Patient counseled most likely effect from metformin. Patient denies headaches, chest pain, SOB, abdominal pain, diarrhea, dysuria, or fever. Objective - Vital Signs/Intake and Output Vital Signs (last 24 hours): Temp Pulse Resp BP Pulse Ox 97.6 F 61 20 113/69 98 01/09/18 12:14 01/09/18 12:14 01/09/18 12:14 01/09/18 12:14 01/09/18 12:14 - Medications Medications: Current Medications Aspirin (Ecotrin) 81 mg PO QPM [facility] Last Admin: 01/08/18 20:08 Dose: 81 mg Atorvastatin Calcium (Lipitor) 20 mg PO QPM [facility] Last Admin: 01/08/18 20:08 Dose: 20 mg Betamethasone Dipropionate (Diprolene) 1 applic TOP BID [facility] Last Admin: 01/09/18 09:12 Dose: 1 applic Clotrimazole (Lotrimin 1% Cream) 1 applic TOP BID [facility] Last Admin: 01/09/18 09:10 Dose: 1 applic Dextrose (Dextrose 50% Inj) 0 ml IV STAT PRN; Protocol PRN Reason: Hypoglycemia Protocol Dextrose (Glutose 15) 0 gm PO ONCE PRN; Protocol PRN Reason: Hypoglycemia Protocol Enoxaparin Sodium (Lovenox) 40 mg SC DAILY [facility] PRN Reason: Protocol Last Admin: 01/09/18 09:16 Dose: Not Given Ferrous Sulfate (Feosol) 325 mg PO QPM [facility] Last Admin: 01/08/18 20:08 Dose: 325 mg Glipizide (Glucotrol Xl) 5 mg PO BRK [facility] Last Admin: 01/09/18 09:12 Dose: 5 mg Glucagon (Glucagen Diagnostic Kit) 0 mg IM STAT PRN; Protocol PRN Reason: Hypoglycemia Protocol Ibuprofen (Motrin Tab) 600 mg PO Q6 PRN PRN Reason: Pain, moderate (4-7) Last Admin: 01/09/18 09:16 Dose: 600 mg Insulin Human Lispro (Humalog) 0 units SC ACHS [facility] PRN Reason: Protocol Last Admin: 01/09/18 06:35 Dose: Not Given Lidocaine (Lidoderm) 1 ea TD DAILY [facility] Last Admin: 01/09/18 09:11 Dose: Not Given Metformin HCl (Glucophage) 500 mg PO BIDWM [facility] Last Admin: 01/09/18 09:11 Dose: 500 mg Ondansetron HCl (Zofran Odt) 4 mg PO Q8H PRN PRN Reason: Nausea/Vomiting Last Admin: 01/09/18 09:09 Dose: 4 mg Oxybutynin Chloride (Ditropan Tab) 5 mg PO QPM [facility] Last Admin: 01/08/18 20:08 Dose: 5 mg Oxycodone/Acetaminophen (Percocet 5/325 Mg Tab) 1 tab PO Q4 PRN PRN Reason: Pain, severe (8-10) Stop: 01/11/18 13:54 Last Admin: 01/08/18 14:00 Dose: 1 tab Sitagliptin Phosphate (Januvia) 100 mg PO DAILY [facility] Last Admin: 01/09/18 09:09 Dose: 100 mg - Labs Labs: 01/09/18 05:00 01/09/18 05:00 - Constitutional Appears: Non-toxic, No Acute Distress - Head Exam Head Exam: ATRAUMATIC, NORMAL INSPECTION, NORMOCEPHALIC - Eye Exam Eye Exam: Normal appearance - ENT Exam ENT Exam: Mucous Membranes Moist - Neck Exam Neck Exam: Full ROM. absent: Tenderness - Respiratory Exam Respiratory Exam: Clear to Ausculation Bilateral. absent: Accessory Muscle Use , Decreased Breath Sounds, Rales, Rhonchi, Wheezes, Respiratory Distress - Cardiovascular Exam Cardiovascular Exam: REGULAR RHYTHM. absent: Tachycardia - GI/Abdominal Exam GI & Abdominal Exam: Soft, Normal Bowel Sounds. absent: Distended, Tenderness - Extremities Exam Extremities Exam: Joint Swelling, Tenderness. absent: Calf Tenderness Additional comments: left knee edema decreased, tenderness right ankle edema decreased, tenderness - Neurological Exam Neurological Exam: Alert, Awake, Oriented x3 - Skin Skin Exam: Dry, Intact, Normal Color, Warm Assessment and Plan (1) ACL tear Status: Acute (2) Right ankle pain Status: Acute (3) Diabetes mellitus type 2 in obese Status: Chronic (4) Iron deficiency anemia Status: Chronic (5) HTN (hypertension) Status: Chronic - Assessment and Plan (Free Text) Plan: c/w present management right ankle edema and pain most likely from sprain seizure ruled out fall most likely syncopal episode due to hypoperfusion of brain from hyoptension neurology recommendations appreciated orthopaedic recommendations appreciated MRI knee: left ACL tear XR right ankle: normal right ankle radiograph pain management: percocet 1 tab Q4h prn for severe pain PT/OT ordered prophylactic measures: DVT lovenox 40 mg SC daily monitor for acute changes assess for placement in subacute rehab
[2018-01-10] MEDS: Insulin Lispro (humaLOG) 100 Units/ml Inj SC SCH ×4 (08:15→23:31)
[2018-01-10] MEDS: GlipiZIDE 5 mg SR Tab PO SCH (09:00)
[2018-01-10] MEDS: Betamethasone Dip 0.05% 15 GM TUBE TOP SCH ×2 (15:42→17:33)
[2018-01-10] MEDS: Lidocaine 5% Patch TD SCH (17:51)
[2018-01-10] MEDS: Enoxaparin 40 mg Syringe SC SCH (17:52)
[2018-01-11] MEDS: Insulin Lispro (humaLOG) 100 Units/ml Inj SC SCH ×4 (10:09→21:44)
[2018-01-11] MEDS: Enoxaparin 40 mg Syringe SC SCH (10:12)
[2018-01-11] MEDS: GlipiZIDE 5 mg SR Tab PO SCH (10:12)
[2018-01-11] MEDS: Lidocaine 5% Patch TD SCH (10:14)
[2018-01-11] MEDS: Betamethasone Dip 0.05% 15 GM TUBE TOP SCH ×2 (10:35→17:01)
[2018-01-12] MEDS: Insulin Lispro (humaLOG) 100 Units/ml Inj SC SCH ×2 (06:34→12:20)
[2018-01-12] MEDS: Enoxaparin 40 mg Syringe SC SCH (09:37)
[2018-01-12] MEDS: Betamethasone Dip 0.05% 15 GM TUBE TOP SCH (09:38)
--- NOTE | 2018-01-12 09:39 | CP.PCM.PN ---
Subjective - Date & Time of Evaluation Date of Evaluation: 01/10/18 Time of Evaluation: 10:00 - Subjective Subjective: Noted significant improvement of FBS Long sno chest pain still with pain and tenderness on the left knee arranged for subacute rehab. Objective - Vital Signs/Intake and Output Vital Signs (last 24 hours): Temp Pulse Resp BP Pulse Ox 98.1 F 58 L 18 102/63 96 01/12/18 08:21 01/12/18 08:21 01/12/18 08:21 01/12/18 08:21 01/12/18 08:21 - Medications Medications: Current Medications Aspirin (Ecotrin) 81 mg PO QPM [facility] Last Admin: 01/11/18 17:01 Dose: 81 mg Atorvastatin Calcium (Lipitor) 20 mg PO QPM [facility] Last Admin: 01/11/18 17:00 Dose: 20 mg Betamethasone Dipropionate (Diprolene) 1 applic TOP BID [facility] Last Admin: 01/11/18 17:01 Dose: 1 applic Clotrimazole (Lotrimin 1% Cream) 1 applic TOP BID [facility] Last Admin: 01/11/18 17:00 Dose: 1 applic Dextrose (Dextrose 50% Inj) 0 ml IV STAT PRN; Protocol PRN Reason: Hypoglycemia Protocol Dextrose (Glutose 15) 0 gm PO ONCE PRN; Protocol PRN Reason: Hypoglycemia Protocol Ferrous Sulfate (Feosol) 325 mg PO QPM [facility] Last Admin: 01/11/18 17:01 Dose: 325 mg Glipizide (Glucotrol Xl) 5 mg PO BRK [facility] Last Admin: 01/11/18 10:12 Dose: 5 mg Glucagon (Glucagen Diagnostic Kit) 0 mg IM STAT PRN; Protocol PRN Reason: Hypoglycemia Protocol Ibuprofen (Motrin Tab) 600 mg PO Q6 PRN PRN Reason: Pain, moderate (4-7) Last Admin: 01/11/18 22:13 Dose: 600 mg Insulin Human Lispro (Humalog) 0 units SC ACHS [facility] PRN Reason: Protocol Last Admin: 01/12/18 06:34 Dose: Not Given Lidocaine (Lidoderm) 1 ea TD DAILY [facility] Last Admin: 01/11/18 10:14 Dose: 1 ea Metformin HCl (Glucophage) 500 mg PO BIDWM [facility] Last Admin: 01/11/18 17:00 Dose: 500 mg Ondansetron HCl (Zofran Odt) 4 mg PO Q8H PRN PRN Reason: Nausea/Vomiting Last Admin: 01/09/18 09:09 Dose: 4 mg Oxybutynin Chloride (Ditropan Tab) 5 mg PO QPM [facility] Last Admin: 01/11/18 17:02 Dose: 5 mg Sitagliptin Phosphate (Januvia) 100 mg PO DAILY [facility] Last Admin: 01/11/18 10:09 Dose: 100 mg - Labs Labs: 01/09/18 05:00 01/09/18 05:00 - Head Exam Head Exam: NORMAL INSPECTION - Eye Exam Eye Exam: Normal appearance - ENT Exam ENT Exam: Mucous Membranes Moist - Respiratory Exam Respiratory Exam: Clear to Ausculation Bilateral - Cardiovascular Exam Cardiovascular Exam: REGULAR RHYTHM - GI/Abdominal Exam GI & Abdominal Exam: Normal Bowel Sounds Assessment and Plan (1) Syncope Status: Acute (2) Seizure Status: Acute (3) Hypotension Status: Acute (4) Anemia Status: Chronic (5) CKD (chronic kidney disease) Status: Acute (6) Diabetes mellitus type 2 in obese Status: Chronic (7) Sleep apnea Status: Acute - Assessment and Plan (Free Text) Plan: Cont meds cont tx cont PT pain meds cont oral hypoglycemics.
--- NOTE | 2018-01-12 09:41 | CP.PCM.PN ---
Subjective - Date & Time of Evaluation Date of Evaluation: 01/11/18 Time of Evaluation: 10:00 - Subjective Subjective: Patient is stable Has no chest pain or SOB Noted normal FBS Has persistent pain and swelling of Left knee. Objective - Vital Signs/Intake and Output Vital Signs (last 24 hours): Temp Pulse Resp BP Pulse Ox 98.1 F 58 L 18 102/63 96 01/12/18 08:21 01/12/18 08:21 01/12/18 08:21 01/12/18 08:21 01/12/18 08:21 - Medications Medications: Current Medications Aspirin (Ecotrin) 81 mg PO QPM [facility] Last Admin: 01/11/18 17:01 Dose: 81 mg Atorvastatin Calcium (Lipitor) 20 mg PO QPM [facility] Last Admin: 01/11/18 17:00 Dose: 20 mg Betamethasone Dipropionate (Diprolene) 1 applic TOP BID [facility] Last Admin: 01/11/18 17:01 Dose: 1 applic Clotrimazole (Lotrimin 1% Cream) 1 applic TOP BID [facility] Last Admin: 01/11/18 17:00 Dose: 1 applic Dextrose (Dextrose 50% Inj) 0 ml IV STAT PRN; Protocol PRN Reason: Hypoglycemia Protocol Dextrose (Glutose 15) 0 gm PO ONCE PRN; Protocol PRN Reason: Hypoglycemia Protocol Ferrous Sulfate (Feosol) 325 mg PO QPM [facility] Last Admin: 01/11/18 17:01 Dose: 325 mg Glipizide (Glucotrol Xl) 5 mg PO BRK [facility] Last Admin: 01/11/18 10:12 Dose: 5 mg Glucagon (Glucagen Diagnostic Kit) 0 mg IM STAT PRN; Protocol PRN Reason: Hypoglycemia Protocol Ibuprofen (Motrin Tab) 600 mg PO Q6 PRN PRN Reason: Pain, moderate (4-7) Last Admin: 01/11/18 22:13 Dose: 600 mg Insulin Human Lispro (Humalog) 0 units SC ACHS [facility] PRN Reason: Protocol Last Admin: 01/12/18 06:34 Dose: Not Given Lidocaine (Lidoderm) 1 ea TD DAILY [facility] Last Admin: 01/11/18 10:14 Dose: 1 ea Metformin HCl (Glucophage) 500 mg PO BIDWM [facility] Last Admin: 01/11/18 17:00 Dose: 500 mg Ondansetron HCl (Zofran Odt) 4 mg PO Q8H PRN PRN Reason: Nausea/Vomiting Last Admin: 01/09/18 09:09 Dose: 4 mg Oxybutynin Chloride (Ditropan Tab) 5 mg PO QPM [facility] Last Admin: 01/11/18 17:02 Dose: 5 mg Sitagliptin Phosphate (Januvia) 100 mg PO DAILY [facility] Last Admin: 01/11/18 10:09 Dose: 100 mg - Labs Labs: 01/09/18 05:00 01/09/18 05:00 - Head Exam Head Exam: NORMAL INSPECTION - Eye Exam Eye Exam: Normal appearance - ENT Exam ENT Exam: Mucous Membranes Moist - Respiratory Exam Respiratory Exam: Clear to Ausculation Bilateral - Cardiovascular Exam Cardiovascular Exam: REGULAR RHYTHM - GI/Abdominal Exam GI & Abdominal Exam: Normal Bowel Sounds Assessment and Plan (1) Syncope Status: Acute (2) Seizure Status: Acute (3) Hypotension Status: Acute (4) Anemia Status: Chronic (5) CKD (chronic kidney disease) Status: Acute (6) Diabetes mellitus type 2 in obese Status: Chronic (7) Sleep apnea Status: Acute (8) Anterior cruciate ligament tear Status: Acute (9) Sprain and strain of ankle Status: Acute - Assessment and Plan (Free Text) Plan: cont meds cont tx cont PT for aubacute rehab
--- NOTE | 2018-01-12 09:42 | CP.PCM.PN ---
Subjective - Date & Time of Evaluation Date of Evaluation: 01/12/18 Time of Evaluation: 09:42 - Subjective Subjective: Patient is doing well Has no chst p[ain or SOB Afebrile. Objective - Vital Signs/Intake and Output Vital Signs (last 24 hours): Temp Pulse Resp BP Pulse Ox 98.1 F 58 L 18 102/63 96 01/12/18 08:21 01/12/18 08:21 01/12/18 08:21 01/12/18 08:21 01/12/18 08:21 - Medications Medications: Current Medications Aspirin (Ecotrin) 81 mg PO QPM [facility] Last Admin: 01/11/18 17:01 Dose: 81 mg Atorvastatin Calcium (Lipitor) 20 mg PO QPM [facility] Last Admin: 01/11/18 17:00 Dose: 20 mg Betamethasone Dipropionate (Diprolene) 1 applic TOP BID [facility] Last Admin: 01/11/18 17:01 Dose: 1 applic Clotrimazole (Lotrimin 1% Cream) 1 applic TOP BID [facility] Last Admin: 01/11/18 17:00 Dose: 1 applic Dextrose (Dextrose 50% Inj) 0 ml IV STAT PRN; Protocol PRN Reason: Hypoglycemia Protocol Dextrose (Glutose 15) 0 gm PO ONCE PRN; Protocol PRN Reason: Hypoglycemia Protocol Ferrous Sulfate (Feosol) 325 mg PO QPM [facility] Last Admin: 01/11/18 17:01 Dose: 325 mg Glipizide (Glucotrol Xl) 5 mg PO BRK [facility] Last Admin: 01/11/18 10:12 Dose: 5 mg Glucagon (Glucagen Diagnostic Kit) 0 mg IM STAT PRN; Protocol PRN Reason: Hypoglycemia Protocol Ibuprofen (Motrin Tab) 600 mg PO Q6 PRN PRN Reason: Pain, moderate (4-7) Last Admin: 01/11/18 22:13 Dose: 600 mg Insulin Human Lispro (Humalog) 0 units SC ACHS [facility] PRN Reason: Protocol Last Admin: 01/12/18 06:34 Dose: Not Given Lidocaine (Lidoderm) 1 ea TD DAILY [facility] Last Admin: 01/11/18 10:14 Dose: 1 ea Metformin HCl (Glucophage) 500 mg PO BIDWM [facility] Last Admin: 01/11/18 17:00 Dose: 500 mg Ondansetron HCl (Zofran Odt) 4 mg PO Q8H PRN PRN Reason: Nausea/Vomiting Last Admin: 01/09/18 09:09 Dose: 4 mg Oxybutynin Chloride (Ditropan Tab) 5 mg PO QPM [facility] Last Admin: 01/11/18 17:02 Dose: 5 mg Sitagliptin Phosphate (Januvia) 100 mg PO DAILY [facility] Last Admin: 01/11/18 10:09 Dose: 100 mg - Labs Labs: 01/09/18 05:00 01/09/18 05:00 - Head Exam Head Exam: NORMAL INSPECTION - Eye Exam Eye Exam: Normal appearance - ENT Exam ENT Exam: Mucous Membranes Moist - Cardiovascular Exam Cardiovascular Exam: REGULAR RHYTHM - GI/Abdominal Exam GI & Abdominal Exam: Normal Bowel Sounds Assessment and Plan (1) Syncope Status: Acute (2) Seizure Status: Acute (3) Hypotension Status: Acute (4) Anemia Status: Chronic (5) CKD (chronic kidney disease) Status: Acute (6) Diabetes mellitus type 2 in obese Status: Chronic (7) Sleep apnea Status: Acute (8) Anterior cruciate ligament tear Status: Acute (9) Sprain and strain of ankle Status: Acute - Assessment and Plan (Free Text) Plan: Cont meds Con ttx dc glipizide cont all other meds.
[2018-01-12] MEDS: Lidocaine 5% Patch TD SCH (10:32)
[2018-01-12 16:29] VITALS: BP 114/72; PULSE 60; RESP 17; TEMP 97.6; O2SAT 99
== END 2018-01-12 17:15 | DRG 144 ==
LOC: H.ER 10:34 → INTOOBSV 13:05 → H.ERHOLD 13:05 → OBSVTOIN 13:05 → UNDOADMOB 13:05 → H.ERHOLD 16:42 → H.TEL 16:42 → OBSVTOIN 01-08 11:29 → H.ERHOLD 01-08 11:29
PROVIDERS: ADMIT Family Medicine; ATTEND Family Medicine
DX: I95.9 Hypotension, unspecified (principal); E11.22 Type 2 diabetes mellitus with diabetic chronic kidney disease; N18.3 Chronic kidney disease, stage 3 (moderate); S83.512A Sprain of anterior cruciate ligament of left knee, initial encounter; E66.9 Obesity, unspecified; G47.30 Sleep apnea, unspecified; E78.00 Pure hypercholesterolemia, unspecified; D50.9 Iron deficiency anemia, unspecified; I12.9 Hypertensive chronic kidney disease with stage 1 through stage 4 chronic kidney disease, or unspecified chronic kidney disease; W19.XXXA Unspecified fall, initial encounter; M54.5 Low back pain; Z68.34 Body mass index [BMI] 34.0-34.9, adult; R55 Syncope and collapse; S96.911A Strain of unspecified muscle and tendon at ankle and foot level, right foot, initial encounter

== ENCOUNTER 2018-09-04 05:18 | Emergency (ER) | payer MEDICAID, OTHER ==
[2018-09-04 05:18] VITALS: BMI 34.8
[2018-09-04] MEDS ORDERED: Sodium Chloride 0.9% 1,000 ML IV STA (05:43)
--- NOTE | 2018-09-04 06:01 | ED PDOC ---
HPI: General Adult Time Seen by Provider: 09/04/18 05:28 Chief Complaint (Nursing): GI Problem Chief Complaint (Provider): GI Problem History Per: Patient Current Symptoms Are (Timing): Still Present Additional Complaint(s): 62 year old female with a history of diabetes, anemia, hypertension and sleep disorder presents to the ED with cough onset months and nonbloody vomiting onset today. Patient reports she had an episode of nonbloody diarrhea and subjective fever. Patient is no longer insulin dependent, but is on medication for diabetes. Patient has had an infection in breast crease for weeks. She reports there is no current bleeding, but there has been in the past. Patient is not taking any antibiotics at this time. No further complaints. PMD: Romana Najera Past Medical History Reviewed: Historical Data, Nursing Documentation, Vital Signs Vital Signs: Last Vital Signs Temp 98.4 F 09/04/18 05:32 Pulse 110 H 09/04/18 05:32 Resp 19 09/04/18 05:32 BP 131/77 09/04/18 05:32 Pulse Ox 96 09/04/18 05:32 - Medical History PMH: Diabetes, Fractures (fibula 3-4 yrs ago), HTN, Hypercholesterolemia, Sleep Apnea Denies: Chronic Kidney Disease - Surgical History Surgical History: Hernia Repair - Family History Family History: States: Unknown Family Hx - Social History Current smoker - smoking cessation education provided: No Ex-Smoker (has not smoked in the last 12 months): No - Immunization History Hx Tetanus Toxoid Vaccination: No Hx Influenza Vaccination: No Hx Pneumococcal Vaccination: No - Home Medications Home Medications: Ambulatory Orders Medication Instructions Recorded RX: Aspirin [Ecotrin] 81 mg PO QPM 08/18/17 Alogliptin Lg/Metformin HCl 12.5 - 1,000 mg PO BID 09/04/18 [Alogliptin-Metformin 12.5-1000] RX: Clindamycin [Cleocin] 300 mg PO TID #30 cap 09/04/18 RX: amLODIPine [Norvasc] 5 mg PO DAILY 09/04/18 Sulfamethoxazole/Trimethoprim 1 tab PO BID #20 tab 09/04/18 [Bactrim DS 800 mg-160 mg] - Allergies Allergies/Adverse Reactions: Allergies Allergy/AdvReac Type Severity Reaction Status Date / Time No Known Allergies Allergy Verified 09/04/18 05:34 Review of Systems ROS Statement: Except As Marked, All Systems Reviewed And Found Negative Constitutional: Positive for: Fever (subjective) Respiratory: Positive for: Cough Gastrointestinal: Positive for: Vomiting, Diarrhea Skin: Positive for: Lesions (breast crease) Physical Exam - Reviewed Nursing Documentation Reviewed: Yes Vital Signs Reviewed: Yes - Physical Exam Appears: Positive for: Non-toxic, No Acute Distress Head Exam: Positive for: ATRAUMATIC, NORMOCEPHALIC Skin: Positive for: Rash (multiple 1/4 sized pustules of various levels of drainage, no fluctuance, some draining from center, some already drained with ulcerative centers, no surrounding erythema of breast.) Eye Exam: Positive for: Normal appearance, EOMI, PERRL Cardiovascular/Chest: Positive for: Regular Rate, Rhythm. Negative for: Murmur Respiratory: Positive for: Normal Breath Sounds. Negative for: Respiratory Distress Gastrointestinal/Abdominal: Positive for: Soft, Tenderness (generally) Extremity: Positive for: Normal ROM (upper and lower) Neurologic/Psych: Positive for: Alert, Oriented (x3) - Laboratory Results Result Diagrams: 09/04/18 06:25 09/04/18 06:25 - ECG O2 Sat by Pulse Oximetry: 96 (RA) Pulse Ox Interpretation: Normal Medical Decision Making Medical Decision Making: Time: 0543 Workup for new onset nausea and vomiting with labs treat with IV fluids and Zofran. Consider imaging based on results of labs. Workup for underling infectious process causing rash. Will start antibiotics once cultures are drawn. Chest x-ray ordered due to chronic cough for the past couple of months. 0700 Patient signed out to Dr. Patterson, pending labs and CXR. Scribe Attestation: Documented by Jana Kwok, acting as a scribe for Shanika Machado MD. Provider Scribe Attestation: All medical record entries made by the Scribe were at my direction and personally dictated by me. I have reviewed the chart and agree that the record accurately reflects my personal performance of the history, physical exam, medical decision making, and the department course for this patient. I have also personally directed, reviewed, and agree with the discharge instructions and disposition. Disposition - Clinical Impression Clinical Impression: UTI (urinary tract infection), Pustular dermatitis - Patient ED Disposition Is Patient to be Admitted: Transfer of Care - Disposition Referrals: [facility] [Outside] Disposition: Transfer of Care Disposition Time: 07:00 Condition: GOOD Additional Instructions: ELLY BECK, thank you for letting us take care of you today. Your provider was Natali Patterson MD and you were treated for NAUSEA,DIZZINESS. The emergency medical care you received today was directed at your acute symptoms. If you were prescribed any medication, please fill it and take as directed. It may take several days for your symptoms to resolve. Return to the Emergency Department if your symptoms worsen, do not improve, or if you have any other problems. Please contact your doctor or call one of the physicians/clinics you have been referred to that are listed on the Patient Visit Information form that is included in your discharge packet. Bring any paperwork you were given at discharge with you along with any medications you are taking to your follow up visit. Our treatment cannot replace ongoing medical care by a primary care provider outside of the emergency department. Thank you for allowing the [facility] team to be part of your care today. If you had an X-Ray or CT scan: A Radiologist will review the ED reading if any change in treatment is needed we will contact you. If you had a blood, urine, or wound culture: It will take several days for the results, if any change in treatment is needed we will contact you. If you had an STI test: It will take 48 hours for the results. Please call after 1 week if you have not heard back. Prescriptions: RX: Clindamycin [Cleocin] 300 mg PO TID #30 cap Sulfamethoxazole/Trimethoprim [Bactrim DS 800 mg-160 mg] 1 tab PO BID #20 tab Instructions: Urinary Tract Infection, Adult (DC), Cellulitis (Skin Infection), Adult (DC) Forms: [employer] (Syrian) Patient Signed Over To: Natali Patterson (pending labs and CXR)
[2018-09-04 06:38] LABS: BASO % 0.3 % (0.0-2.0); EOS # 0.1 K/uL (0.0-0.7); EOS % 1.2 % (0.0-4.0); HEMOGLOBIN 8.9 g/dL (12.0-16.0); LYMPH # 0.6 K/uL (1.0-4.3); LYMPH % 5.9 % (20.0-40.0); MEAN CELL VOLUME 83.7 fl (81.0-99.0); MEAN CORPUSCULAR HEMOGLOBIN 28.2 pg (27.0-31.0); MEAN CORPUSCULAR HGB CONC 33.7 g/dL (33.0-37.0); MEAN PLATELET VOLUME 7.9 fl (7.2-11.7); MONO # 0.7 K/uL (0.0-0.8); MONO % 6.2 % (0.0-10.0); NEUT # 9.2 K/uL (1.8-7.0); NEUT % 86.4 % (50.0-75.0); PLATELET COUNT 303 K/uL (130-400); RBC 3.16 Mil/uL (3.80-5.20); RED CELL DISTRIBUTION WIDTH 14.3 % (11.5-14.5); WHITE BLOOD COUNT 10.7 K/uL (4.8-10.8)
[2018-09-04] MEDS ORDERED: Clindamycin 600mg/50ml NS 600 MG/50 ML BAG IVPB STA (06:42)
[2018-09-04 06:45] LABS: ALB/GLOB RATIO 0.9 (1.0-2.1); AST/SGOT 18 U/L (14-36); BLOOD UREA NITROGEN 25 mg/dl (7-17); CALCIUM 9.4 mg/dL (8.4-10.2); GFR NON-AFRICAN AMERICAN 46
[2018-09-04 06:46] LABS: ALT/SGPT < 6 U/L (9-52)
--- NOTE | 2018-09-04 07:10 | ED PDOC ---
- Laboratory Results Result Diagrams: 09/04/18 06:25 09/04/18 06:25 Lab Results: Total Bilirubin 0.3 mg/dl (0.2-1.3) 09/04/18 06:25 AST 18 U/L (14-36) 09/04/18 06:25 ALT < 6 U/L (9-52) L D 09/04/18 06:25 Alkaline Phosphatase 100 U/L (38-126) 09/04/18 06:25 Total Protein 8.4 G/DL (6.3-8.2) H 09/04/18 06:25 Albumin 4.0 g/dL (3.5-5.0) 09/04/18 06:25 Globulin 4.4 gm/dL (2.2-3.9) H 09/04/18 06:25 Albumin/Globulin Ratio 0.9 (1.0-2.1) L 09/04/18 06:25 - ECG O2 Sat by Pulse Oximetry: 96 (RA) Pulse Ox Interpretation: Normal Medical Decision Making Medical Decision Makin Patient endorsed by Dr. Machado, pending labs and CXR. 07 CXR FINDINGS: LUNGS: No active pulmonary disease. PLEURA: No significant pleural effusion identified. No pneumothorax apparent. CARDIOVASCULAR: No aortic atherosclerotic calcification present. Normal cardiac size. No pulmonary vascular congestion. OSSEOUS STRUCTURES: No significant abnormalities. VISUALIZED UPPER ABDOMEN: Normal. OTHER FINDINGS: None. IMPRESSION: No interval acute cardiopulmonary disease appreciated. Scribe Attestation: Documented by Elaina Corcoran, acting as a scribe for Natali Patterson MD. Provider Scribe Attestation: All medical record entries made by the Scribe were at my direction and per sonally dictated by me. I have reviewed the chart and agree that the record accurately reflects my personal performance of the history, physical exam, medical decision making, and the department course for this patient. I have also personally directed, reviewed, and agree with the discharge instructions and disposition. Disposition Doctor Will See Patient In The: Office Counseled Patient/Family Regarding: Studies Performed, Diagnosis, Need For Followup - Clinical Impression Clinical Impression: UTI (urinary tract infection), Pustular dermatitis - POA Present On Arrival: None - Disposition Referrals: [facility] [Outside] Disposition: Routine/Home Disposition Time: 13:23 Condition: GOOD Additional Instructions: ELLY BECK, thank you for letting us take care of you today. Your provider was Natali Patterson MD and you were treated for NAUSEA,DIZZINESS. The emergency medical care you received today was directed at your acute symptoms. If you were prescribed any medication, please fill it and take as directed. It may take several days for your symptoms to resolve. Return to the Emergency Department if your symptoms worsen, do not improve, or if you have any other problems. Please contact your doctor or call one of the physicians/clinics you have been referred to that are listed on the Patient Visit Information form that is included in your discharge packet. Bring any paperwork you were given at discharge with you along with any medications you are taking to your follow up visit. Our treatment cannot replace ongoing medical care by a primary care provider outside of the emergency department. Thank you for allowing the [facility] team to be part of your care today. If you had an X-Ray or CT scan: A Radiologist will review the ED reading if any change in treatment is needed we will contact you. If you had a blood, urine, or wound culture: It will take several days for the results, if any change in treatment is needed we will contact you. If you had an STI test: It will take 48 hours for the results. Please call after 1 week if you have not heard back. Prescriptions: Clindamycin [Cleocin] 300 mg PO TID #30 cap Sulfamethoxazole/Trimethoprim [Bactrim DS 800 mg-160 mg] 1 tab PO BID #20 tab Instructions: Urinary Tract Infection, Adult (DC), Cellulitis (Skin Infection), Adult (DC)
--- NOTE | 2018-09-04 07:35 | RAD ---
Date of service: 09/04/2018 HISTORY: cough COMPARISON: Frontal chest radiograph 08/16/2017. TECHNIQUE: Chest PA and lateral FINDINGS: LUNGS: No active pulmonary disease. PLEURA: No significant pleural effusion identified. No pneumothorax apparent. CARDIOVASCULAR: No aortic atherosclerotic calcification present. Normal cardiac size. No pulmonary vascular congestion. OSSEOUS STRUCTURES: No significant abnormalities. VISUALIZED UPPER ABDOMEN: Normal. OTHER FINDINGS: None. IMPRESSION: No interval acute cardiopulmonary disease appreciated.
[2018-09-04 09:42] LABS: SQUAMOUS EPITHIAL 4 /hpf (0-5); URINE BACTERIA MANY (<OCC); URINE BILIRUBIN NEGATIVE (NEGATIVE); URINE BLOOD SMALL (NEGATIVE); URINE CLARITY SLIGHTY-CLOUDY (Clear); URINE COLOR YELLOW (YELLOW); URINE GLUCOSE (UA) NEG (NEGATIVE); URINE LEUKOCYTE ESTERASE LARGE Leu/uL (Negative); URINE PROTEIN NEGATIVE (NEGATIVE); URINE UROBILINOGEN 0.2-1.0 mg/dL (0.2-1.0)
[2018-09-04 10:57] LABS: EOSINOPHIL 3 % (0-7); LYMPHOCYTE 8 % (20-50); MONOCYTE 3 % (0-10); NEUTROPHIL 86 % (42-75); PLATELET CLUMPS PRESENT; PLATELET ESTIMATE NORMAL (NORMAL); TOTAL CELLS COUNTED 100
[2018-09-04] MEDS ORDERED: cefTRIAXone (Rocephin) 1 gm Inj ONE (11:37)
[2018-09-04 13:16] VITALS: BP 114/66; PULSE 97; RESP 16; TEMP 98.2
[2018-09-04 13:25] VITALS: O2SAT 96
== END 2018-09-04 13:34 | disposition home or self-care (01) ==
LOC: H.ER 05:18
DX: N39.0 Urinary tract infection, site not specified (principal); L13.1 Subcorneal pustular dermatitis; D64.9 Anemia, unspecified; E11.9 Type 2 diabetes mellitus without complications; E78.00 Pure hypercholesterolemia, unspecified; I10 Essential (primary) hypertension; Z79.84 Long term (current) use of oral hypoglycemic drugs
CPT/HCPCS: 71046; 80053; 81003; 85025; 87040; 87804; 96361; 96365; 96367; 96375; 99284; J0696; J2405; J7030

== ENCOUNTER 2018-11-21 14:28 | Emergency (ER) | payer MEDICAID ==
[2018-11-21 14:29] VITALS: BMI 34.8
[2018-11-21 14:33] VITALS: O2SAT 99
[2018-11-21] MEDS ORDERED: Sodium Chloride 0.9% 1,000 ML IV STA (14:58)
[2018-11-21] MEDS ORDERED: Iohexol 240 (50 ml) PO ONE (14:58)
--- NOTE | 2018-11-21 15:34 | ED PDOC ---
HPI: Abdomen Time Seen by Provider: 11/21/18 14:36 Chief Complaint (Nursing): Fever Chief Complaint (Provider): Abdominal pain History Per: Patient History/Exam Limitations: no limitations Onset/Duration Of Symptoms: Hrs Outside of [place] travel?: No Current Symptoms Are (Timing): Still Present Location Of Pain/Discomfort: Diffuse Associated Symptoms: Nausea, Vomiting Additional History Per: Patient Additional Complaint(s): 62yo female, with history of abdominal wall surgery with mesh placement and subsequent removal, comes to ER reporting abdominal pain since this morning. She reports associated nausea and vomiting, as well as headache. She also reports a tactile fever. Patient states she did not receive her flu shot this year. Patient states she followed up with Dr. Najera yesterday for her annual check up as well. Patient does report urinary frequency, but denies any dysuria, hematuria, back pain, or other complaints. PMD: Dr. Najera Past Medical History Reviewed: Historical Data, Nursing Documentation, Vital Signs Vital Signs: Last Vital Signs Temp 98 F 11/21/18 14:30 Pulse 85 11/21/18 14:30 Resp 18 11/21/18 14:30 BP 115/65 11/21/18 14:30 Pulse Ox 99 11/21/18 14:30 - Medical History PMH: Diabetes, Fractures (fibula 3-4 yrs ago), HTN, Hypercholesterolemia, Sleep Apnea Denies: Chronic Kidney Disease - Surgical History Surgical History: Hernia Repair - Family History Family History: States: No Known Family Hx - Social History Current smoker - smoking cessation education provided: No Alcohol: None Drugs: Denies - Immunization History Hx Tetanus Toxoid Vaccination: No Hx Influenza Vaccination: No Hx Pneumococcal Vaccination: No - Home Medications Home Medications: Ambulatory Orders Medication Instructions Recorded Aspirin [Ecotrin] 81 mg PO QPM 08/18/17 Alogliptin Lg/Metformin HCl 12.5 - 1,000 mg PO BID 09/04/18 [Alogliptin-Metformin 12.5-1000] Clindamycin [Cleocin] 300 mg PO TID #30 cap 09/04/18 Sulfamethoxazole/Trimethoprim 1 tab PO BID #20 tab 09/04/18 [Bactrim DS 800 mg-160 mg] amLODIPine [Norvasc] 5 mg PO DAILY 09/04/18 Ciprofloxacin 250 mg PO BID #6 ml 11/21/18 - Allergies Allergies/Adverse Reactions: Allergies Allergy/AdvReac Type Severity Reaction Status Date / Time No Known Allergies Allergy Verified 11/21/18 14:30 Review of Systems ROS Statement: Except As Marked, All Systems Reviewed And Found Negative Constitutional: Positive for: Fever (tactile) Gastrointestinal: Positive for: Nausea, Vomiting, Abdominal Pain. Negative for: Diarrhea Genitourinary Female: Positive for: Frequency. Negative for: Dysuria, Hematuria Musculoskeletal: Negative for: Back Pain Neurological: Positive for: Headache Physical Exam - Reviewed Nursing Documentation Reviewed: Yes Vital Signs Reviewed: Yes - Physical Exam Appears: Positive for: Uncomfortable Head Exam: Positive for: ATRAUMATIC, NORMAL INSPECTION, NORMOCEPHALIC Skin: Positive for: Normal Color Eye Exam: Positive for: EOMI, PERRL ENT: Positive for: Other (dry mucus membranes) Neck: Positive for: Normal, Supple Cardiovascular/Chest: Positive for: Regular Rate, Rhythm. Negative for: Tachycardia Respiratory: Positive for: Normal Breath Sounds. Negative for: Respiratory Distress Gastrointestinal/Abdominal: Positive for: Soft, Tenderness (diffuse tenderness), Other (erythematous, vesicular rash noted to bilateral inframmary region; patient reports this has been present for "months" and does not offer any complaints regarding the rash) Back: Positive for: Normal Inspection Extremity: Positive for: Normal ROM. Negative for: Pedal Edema, Deformity Neurological/Psych: Positive for: Awake, Alert, Normal Tone, Oriented (x 3) - Laboratory Results Result Diagrams: 11/21/18 15:49 11/21/18 15:49 - ECG O2 Sat by Pulse Oximetry: 99 (RA) Pulse Ox Interpretation: Normal Medical Decision Making Medical Decision Making: Impression: 62yo female with abdominal pain, headache, nausea and vomiting Plan: -- Labs -- IV FLuids -- Reglan 10mg IV -- CT Abdomen/Pelvis w/ contrast [address] Machado pending CT and reevaluation. Scribe Attestation: Documented by Delphine Agosto acting as a scribe for Ramon Curtis MD. Provider Attestation: All medical record entries made by the Scribe were at my direction and personally dictated by me. I have reviewed the chart and agree that the record accurately reflects my personal performance of the history, physical exam, medical decision making, and the department course for this patient. I have also personally directed, reviewed, and agree with the discharge instructions and disposition. Disposition - Clinical Impression Clinical Impression: Abdominal pain - Disposition Disposition: Transfer of Care Disposition Time: 19:00 Condition: STABLE Prescriptions: Ciprofloxacin 250 mg PO BID #6 ml Instructions: Urinary Tract Infections in Adults Forms: [employer] (Congolese) Print Language: GERMAN Patient Signed Over To: Shanika Machado (pending CT and reevalution )
[2018-11-21 15:56] LABS: BASO % 0.3 % (0.0-2.0); EOS % 0.1 % (0.0-4.0); HEMOGLOBIN 9.6 g/dL (12.0-16.0); LYMPH # 1.6 K/uL (1.0-4.3); LYMPH % 11.1 % (20.0-40.0); MEAN CELL VOLUME 85.5 fl (81.0-99.0); MEAN CORPUSCULAR HEMOGLOBIN 28.3 pg (27.0-31.0); MEAN PLATELET VOLUME 7.5 fl (7.2-11.7); MONO % 7.5 % (0.0-10.0); NEUT # 11.3 K/uL (1.8-7.0); NRBC % 0.1 % (0.0-0.0); RBC 3.41 Mil/uL (3.80-5.20); RED CELL DISTRIBUTION WIDTH 13.7 % (11.5-14.5)
[2018-11-21 16:06] LABS: ALB/GLOB RATIO 0.9 (1.0-2.1); ALBUMIN 4.3 g/dL (3.5-5.0); CALCIUM 9.2 mg/dL (8.4-10.2)
[2018-11-21] MEDS ORDERED: Sodium Chloride 0.9% 50 ML IV ONE (17:57)
[2018-11-21] MEDS ORDERED: Iohexol 300 100 ML IJ ONE (17:57)
--- NOTE | 2018-11-21 19:12 | ED PDOC ---
- Laboratory Results Result Diagrams: 11/21/18 15:49 11/21/18 15:49 Lab Results: Total Bilirubin 0.7 mg/dl (0.2-1.3) 11/21/18 15:49 AST 19 U/L (14-36) 11/21/18 15:49 ALT 14 U/L (9-52) 11/21/18 15:49 Alkaline Phosphatase 101 U/L (38-126) 11/21/18 15:49 Total Protein 8.9 G/DL (6.3-8.2) H 11/21/18 15:49 Albumin 4.3 g/dL (3.5-5.0) 11/21/18 15:49 Globulin 4.6 gm/dL (2.2-3.9) H 11/21/18 15:49 Albumin/Globulin Ratio 0.9 (1.0-2.1) L 11/21/18 15:49 Lipase 125 U/L (23-300) 11/21/18 15:49 - ECG O2 Sat by Pulse Oximetry: 99 (RA) Pulse Ox Interpretation: Normal Medical Decision Making Medical Decision Making: Time: 1899 --Patient with diffuse abdominal pain and increased white blood cell count was signed out to this provider by Dr. Curtis, pending CT results. Of note, on physical exam patient was found to have inframammary rash consistent with fungal infection. Will treat accordingly and discharge patient. Time: 1917 CT Abdomen and Pelvis with IV contrast FINDINGS: LUNG BASES: The lung bases appear clear. No pleural effusions are seen. LIVER: Unremarkable. GALLBLADDER AND BILE DUCTS: The gallbladder appears within normal limits. No radioopaque gallstones are seen. No biliary ductal dilatation is evident. PANCREAS: Unremarkable. SPLEEN: Unremarkable. ADRENAL GLANDS: Unremarkable. KIDNEYS, URETERS, AND BLADDER: Small right renal cyst measuring 2.5 x 1.7 cm. A second subcentimeter cyst right kidney present. There is a 3.3 x 3.8 cm cyst left kidney with smaller 2.1 cm cyst.. There is no hydronephrosis or hydroureter. No urinary calculi are seen. Bladder is incompletely distended with apparent mild bladder wall thickening. STOMACH AND BOWEL: Unremarkable appearance of the stomach and bowel. No evidence of bowel obstruction. No evidence suggesting enteritis or colitis. There is a postsurgical change present at the left lower abdomen and pelvic region with surgical scar seen within the septae soft tissues. Multiple surgical clips are seen within the left lower pelvis and left abdomen. APPENDIX: No evidence of acute appendicitis on CT examination. PERITONEUM: No free fluid. No free air. LYMPH NODES: No lymphadenopathy is evident. REPRODUCTIVE: Uterus has likely been surgically removed. VASCULATURE: No evidence of abdominal aortic aneurysm. BONES: No aggressive appearing osseous lesion. No acute osseous pathology evident. IMPRESSION: No suspicious mass or lymphadenopathy. Bilateral renal cysts. Postsurgical changes of the lower abdomen and pelvis. Status post hysterectomy. Apparent mild bladder wall thickening. Clinical correlation advised. Time: 2029 --Renal cysts noted on CT, discussed findings with patient who is to follow-up with PMD for further workup. Diagnosis UTI. ScribeAttestation: Documented byJana Kwok, acting as a scribe for Shanika Machado MD. Provider ScribeAttestation: All medical record entries made by the Scribe were at my direction and personally dictated by me. I have reviewed the chart and agree that the record accurately reflects my personal performance of the history, physical exam, m edical decision making, and the department course for this patient. I have also personally directed, reviewed, and agree with the discharge instructions and disposition. Disposition - Clinical Impression Clinical Impression: Urinary tract bacterial infections - POA Present On Arrival: None - Disposition Disposition: Routine/Home Disposition Time: 20:30 Condition: STABLE Prescriptions: Ciprofloxacin 250 mg PO BID #6 ml Instructions: Urinary Tract Infections in Adults Forms: [employer] (Slovenian) Print Language: THAI
[2018-11-21 21:28] VITALS: BP 119/83; PULSE 87; RESP 17; TEMP 98.2
--- NOTE | 2018-11-22 11:59 | CT ---
Date of service: 11/21/2018 PROCEDURE: CT abdomen and pelvis HISTORY: Abdominal pain COMPARISON: None. TECHNIQUE: Contiguous axial images of the abdomen and pelvis following oral and intravenous injection of approximately 95 cc Omnipaque 300 contrast material. Additional 2D sagittal and coronal reformats generated.. Radiation dose: Total exam DLP = 735.78 mGy-cm. This CT exam was performed using one or more of the following dose reduction techniques: Automated exposure control, adjustment of the mA and/or kV according to patient size, and/or use of iterative reconstruction technique. FINDINGS: LOWER THORAX: Heart size within range of normal. No significant pericardial effusion. Small hiatal hernia. Minor curvilinear scarring changes seen in the left lung base including the lingular and middle lobe regions. There also appears to be some localized minor nodular scarring bordering the medial pleural surface right middle lobe. LIVER: Liver exhibits normal size. Minimal fatty hepatic infiltration. No obvious hepatic masses collections or calcifications. Portal and splenic veins are opacified. GALLBLADDER AND BILE DUCTS: Gallbladder physiologically distended. No evidence of intraluminal gallbladder calculi PANCREAS: Pancreas appears unremarkable without masses collections or calcifications. The SPLEEN: Spleen upper limits of normal measuring nearly 13 cm in AP dimension. ADRENALS: The adrenal glands are nodular in appearance. KIDNEYS AND URETERS: Kidneys demonstrate relatively symmetric nephrograms. There appears to be a nonobstructing 7.85 mm calculus proximal right ureter. No hydronephrosis There are multiple bilateral renal cysts the largest of which is located in the left medial upper pole measuring approximately 2.74 x 2.0 cm and on the right arising from the anterior aspect of the mid to lower pole measuring approximately 2.7 x 2.2 cm in greatest dimension. BLADDER: The urinary bladder incompletely distended with thick-walled appearance. Muscular hypertrophy may contribute. Correlation with urinalysis recommended to exclude cystitis or other intrinsic wall lesion. REPRODUCTIVE: Hysterectomy. APPENDIX: Appendix is not positively identified on this exam no obvious inflammatory changes right lower quadrant of the abdomen. BOWEL: Evaluation of the bowel is slightly limited due to incomplete opacification. The stomach is incompletely distended with slight thick-walled appearance. The There is a localized short segment of distended small bowel in the right parasagittal upper/mid abdomen nonspecific however no evidence of acute mechanical small bowel obstruction with oral contrast material extending into the distal nondilated small bowel. Large amount of stool seen throughout the colon consistent with fecal retention/constipation. PERITONEUM: Unremarkable. No fluid collection. No free air. Multiple metallic surgical clips are present within the pelvis bilaterally. There also appear to be postoperative changes likely granulation tissue and scar along the peritoneal surface anterolateral left lower abdominal wall with overlying subcutaneous scarring. LYMPH NODES: Few small nonspecific bilateral inguinal lymph nodes are present.. There also scattered small nonspecific mesenteric lymph nodes. Rule out mesenteric adenitis VASCULATURE: Unremarkable. No aortic aneurysm. No aortic atherosclerotic calcification or mural plaque present. BONES: Multilevel degenerative spondylosis of the lower thoracic and lumbar spine. OTHER FINDINGS: Incidental note made of a localized area of skin thickening right anterolateral upper abdomen nonspecific. Clinical correlation with physical exam. IMPRESSION: Findings consistent with constipation. Mild fatty hepatic infiltration. Borderline splenomegaly. Nodular appearing adrenal glands.. There appears to be a nonobstructing 7.85 mm calculus proximal right ureter. No hydronephrosis Bilateral renal cysts. Questionable urinary bladder is incompletely distended with thick-walled appearance. Correlation with urinalysis to exclude cystitis or other intrinsic/invasive wall lesion. Hysterectomy There are scattered small nonspecific mesenteric lymph nodes; rule out mesenteric adenitis. Localized skin thickening right anterolateral upper abdomen nonspecific. Clinical correlation with physical exam.
--- NOTE | 2018-11-22 15:31 | CARD ---
APPROVED REPORT Date of service: 11/21/2018 EKG Measurement Heart [id number] <Conclusion> Normal sinus rhythm Possible Inferior infarct, age undetermined Abnormal ECG
== END 2018-11-21 21:28 | disposition home or self-care (01) ==
LOC: H.ER 14:28
DX: R10.9 Unspecified abdominal pain (principal); E11.9 Type 2 diabetes mellitus without complications; I10 Essential (primary) hypertension; Z79.82 Long term (current) use of aspirin; Z90.710 Acquired absence of both cervix and uterus; Z79.84 Long term (current) use of oral hypoglycemic drugs; N39.0 Urinary tract infection, site not specified
CPT/HCPCS: 74177; 80053; 82948; 83605; 83690; 83735; 85025; 93005; 96374; 99285; J2765; J7030; Q9966; Q9967